=== PATIENT | female | born 1960 | race Caucasian/White ===

== ENCOUNTER 2021-07-18 01:23 | Inpatient (IN) | payer MEDICAID ==
[~2021-07-18] VITALS: Ht 157.5 cm; Wt 109.1 kg
[2021-07-18 03:06] LABS: APTT 23 SECONDS (22-32)
[2021-07-18 03:11] LABS: BASOPHILS % (AUTO) 0.4 % (0-1); EOSINOPHILS # (AUTO) 0.2 X10'3 (0-0.9); HEMATOCRIT 38.5 % (35.0-45.0); LYMPHOCYTES % (AUTO) 17.6 % (21-51); MEAN CORPUSCULAR HEMOGLOBIN 30.6 PG (27.0-31.0); MEAN CORPUSCULAR HGB CONC 33.8 g/dL (33.0-36.5); MEAN CORPUSCULAR VOLUME 90.5 FL (78-98); MEAN PLATELET VOLUME 7.9 FL (7.4-10.4); MONOCYTES # (AUTO) 0.4 X10'3 (0-0.9); MONOCYTES % (AUTO) 3.7 % (2-12); NEUTROPHILS # (AUTO) 8.5 X10'3 (1.8-7.7); NEUTROPHILS % (AUTO) 76.3 % (42-75); PLATELET COUNT 236 X10'3 (140-440); RED BLOOD COUNT 4.25 X10'6 (4.20-5.60); RED CELL DISTRIBUTION WIDTH 16.1 % (11.5-14.5); WHITE BLOOD COUNT 11.1 X10'3 (4.5-11.0)
[2021-07-18 03:18] LABS: ALANINE AMINOTRANSFERASE 33 U/L (12-78); ALBUMIN 3.6 G/DL (3.4-5.0); ALBUMIN/GLOBULIN RATIO 0.8 (1.1-1.5); ALKALINE PHOSPHATASE 174 IU/L (46-116); ANION GAP 11 (8-16); ASPARTATE AMINO TRANSFERASE 41 U/L (10-37); BILIRUBIN,TOTAL 0.4 MG/DL (0.1-1.0); BLOOD UREA NITROGEN 28 MG/DL (7-18); BUN/CREATININE RATIO 15.5 (6.6-38.0); CALCIUM 9.5 MG/DL (8.5-10.1); CHLORIDE 103 MMOL/L (99-107); CREATININE 1.81 MG/DL (0.40-0.90); GLUCOSE 258 MG/DL (70-104); POTASSIUM 4.2 MMOL/L (3.5-5.1); SODIUM 141 MMOL/L (135-145); TOTAL CARBON DIOXIDE 27.3 MMOL/L (24-32); TOTAL PROTEIN 8.3 G/DL (6.4-8.2); eGFR 28 ML/MIN
[2021-07-18 04:24] LABS: CLARITY,URINE CLEAR (Clear); COLOR,URINE YELLOW (Yellow); GLUCOSE, URINE NEGATIVE (Neg); KETONES,URINE NEGATIVE (Neg); LEUKOCYTE ESTERASE ,URINE NEGATIVE (Neg); NITRITES, URINE NEGATIVE (Neg); OCCULT BLOOD,URINE SMALL (Neg); PROTEIN,URINE 100 mg/dl (Neg); UA COLLECTION TYPE CLN CATCH MIDSTREAM; UROBILINOGEN,URINE 0.2 E.U/dL (0.2-1.0)
[2021-07-18 04:31] LABS: SQUAMOUS EPITHELIAL CELL,UR FEW /LPF (FEW); URINE AMPHETAMINE SCREEN NEGATIVE (Neg); URINE BARBITUATE SCREEN NEGATIVE (Neg); URINE BENZODIAZEPINES SCREEN NEGATIVE (Neg); URINE CANNABINOID SCREEN POSITIVE (Neg); URINE COCAINE SCREEN NEGATIVE (Neg); URINE METHADONE SCREEN NEGATIVE (Neg); URINE OPIATE SCREEN NEGATIVE (Neg); URINE PHENCYCLIDINE SCREEN NEGATIVE (Neg)
[2021-07-18 04:32] LABS: HYALINE CASTS 0-3 /LPF (NEGATIVE)
[2021-07-18 04:33] LABS: BACTERIA,URINE NONE SEEN /HPF (Neg); MUCUS STRANDS NONE SEEN /LPF (Neg); RBC,URINE 0-2 /HPF (0-2)
[2021-07-18] MEDS ORDERED: normal saline 1000ml 1,000 ML IV ONE (04:50)
[2021-07-18] MEDS ORDERED: LOSA25TA41 PO (05:02)
--- NOTE | 2021-07-18 05:52 | NUR ---
FLUIDS FINISHED. SECOND LACTIC DRAWN NOW
[2021-07-18] MEDS ORDERED: insulin Lispro (HumaLOG) vial - multi-dose SQ SCH (07:25)
[2021-07-18] MEDS ORDERED: glucagon, human recombinant 1mg kit SUBCUT PRN (07:25)
[2021-07-18] MEDS ORDERED: albuterol 2.5 MG/3 ML nebule NEB PRN ×2 (07:25)
[2021-07-18] MEDS ORDERED: potassium CL 10mEq/100ml bag 100 ML IV PRN (07:25)
[2021-07-18] MEDS ORDERED: ipratropium/albuterol 3ml nebule NEB PRN (07:25)
[2021-07-18] MEDS ORDERED: dextrose 50%-water 50ml dispensing syringe IV PRN ×2 (07:25)
[2021-07-18] MEDS ORDERED: magnesium 4gm in 100ml NS 100 ML IV PRN (07:25)
[2021-07-18] MEDS ORDERED: POTASSIUM BICARB 20meq eff tab 20 MEQ TABLET.EFF PO PRN ×2 (07:25)
[2021-07-18] MEDS ORDERED: MESSAGE TO PHARMACY PO ONE (07:25)
[2021-07-18] MEDS ORDERED: magnesium 2GM in 50ml NS 50 ML IV PRN (07:25)
[2021-07-18] MEDS ORDERED: acetaminophen 325mg tablet PO PRN (07:25)
[2021-07-18] MEDS ORDERED: DEXTROSE 15 GM of carb/4 tabs (each vial/BOTTLE has 4 tablets) PO PRN ×2 (07:25)
[2021-07-18] MEDS: normal saline 1000ml 1,000 ML IV SCH ×3 (07:25→19:30)
[2021-07-18] MEDS ORDERED: ondansetron/PF 4mg/2ml inj IV PRN (07:25)
[2021-07-18] MEDS ORDERED: mag hydrox/Alum hydrox/simeth 30ml oral suspension PO PRN (07:25)
--- NOTE | 2021-07-18 07:30 | NUR ---
Pt sleeping, no apparent needs at this time.
[2021-07-18 07:51] LABS: ABG BASE EXCESS 2.2 mmol/L (-2.0-2.0); ABG OXYGEN SATURATION 95.2 % (94-97); ABG PCO2 (T) 60.8 mmHg (32.0-45.0); ABG PO2 (T) 77.9 mmHg (75.0-100.0); ALLEN'S TEST POSITIVE; FCOHb 2.7 % (0.0-3.9); FLOW 3 L/min; FMetHb 0.3 % (0.0-1.5); FO2Hb 92.3 % (94-97); PATIENT TEMPERATURE 36.7
[2021-07-18] MEDS: budesonide 0.5mg/2ml UD nebule IH SCH ×2 (08:00→19:50)
[2021-07-18] MEDS: K and/or MAG REPLACEMENT MC SCH ×2 (08:00→20:00)
[2021-07-18] MEDS: docusate sod 100mg capsule PO SCH ×3 (08:00→21:58)
[2021-07-18] MEDS: heparin, porcine 5000 units/ml vial SQ SCH ×2 (08:34→21:59)
[2021-07-18] MEDS: methylPREDNISolone sod succ 125mg/2ml vial IV SCH ×3 (08:36→23:53)
--- NOTE | 2021-07-18 08:37 | NUR ---
Pt placed on BiPAP 10/5 on 21% FiO2. Pt awakens to verbal, confused, but able to follow commands to look me in the eye. Tolerating BiPAP well, explained need to have pt placed on it to help her breathe. Pt nodded when asked if she understood.
[2021-07-18 08:43] LABS: HEMOGLOBIN A1C 6.8 % (4.5-6.2)
--- NOTE | 2021-07-18 09:01 | NUR ---
Left hand IV (field stick) d/c, cath intact, WNL. New IV started LFA 20g, NS @100 infusing.
--- NOTE | 2021-07-18 09:30 | NUR ---
Pt's at bedside. Pt starting to wake up and become more alert.
[2021-07-18 10:34] LABS: ABG BASE EXCESS 1.3 mmol/L (-2.0-2.0); ABG HCO3 28.2 mmol/L (22.0-26.0); ABG PCO2 (T) 54.6 mmHg (32.0-45.0); ABG PO2 (T) 65.2 mmHg (75.0-100.0); ALLEN'S TEST POSITIVE; FCOHb 2.7 % (0.0-3.9); FMetHb 0.3 % (0.0-1.5); FO2Hb 90.2 % (94-97); TOTAL HEMOGLOBIN 13.4 G/dl (12.0-16.0)
--- NOTE | 2021-07-18 10:45 | NUR ---
Pt states she is feeling much better. "I'm ready to go home." Pt still on BiPAP. A&Ox3. Will page RT for breathing tx.
[2021-07-18] MEDS: ipratropium/albuterol 3ml nebule NEB SCH ×4 (11:36→22:44)
--- NOTE | 2021-07-18 12:00 | NUR ---
Pt alert and oriented, talking with family at bedside. Still on BiPAP.
--- NOTE | 2021-07-18 13:30 | NUR ---
at bedside. Pt in no apparent distress. No needs at this time. Tolerating BiPAP well.
[2021-07-18] MEDS ORDERED: BACL20TA PO (14:33)
[2021-07-18] MEDS ORDERED: METF-438 PO (14:33)
[2021-07-18] MEDS ORDERED: GLIM4TAB7 PO (14:33)
[2021-07-18] MEDS ORDERED: BUPR-72 PO (14:33)
[2021-07-18] MEDS ORDERED: ALBU17AE26 PO (14:33)
[2021-07-18] MEDS ORDERED: FLUT1BLS16 INH (14:33)
[2021-07-18] MEDS ORDERED: MUPI22OI30 TOP (14:33)
[2021-07-18] MEDS ORDERED: [UNRECOGNIZED DRUG - CODE] PO (14:33)
[2021-07-18] MEDS ORDERED: FURO40TA4 PO (14:33)
[2021-07-18] MEDS ORDERED: METO25TA6 PO (14:33)
[2021-07-18] MEDS ORDERED: ATOR20TA66 PO (14:33)
[2021-07-18] MEDS ORDERED: non-formulary drug (Baclofen 1 TAB) PO PRN (14:40)
--- NOTE | 2021-07-18 15:05 | NUR ---
Respiratory paged for breathing tx.
--- NOTE | 2021-07-18 16:29 | NUR ---
Pt voided on bedpan, sheets and gown and blanket changed. Pt moved up in bed. Pt alert, good sense of humor. No further needs, at bedside.
--- NOTE | 2021-07-18 19:06 | NUR ---
report given to bret ramos
--- NOTE | 2021-07-18 19:07 | NUR ---
Patient in room ORTHO 4009. I have received report from BRIAN ALVAREZ and had the opportunity to ask questions and assume patient care. Addendum: 07/19/21 at 0424 by Dulce De La Cruz RN WRONG ENTRY
[2021-07-18 19:20] VITALS: BP 159/79
--- NOTE | 2021-07-18 19:20 | NUR ---
PATIENT ADMITTED TO ROOM 4009A FROM ER FOR ENCEPHALOPATHY MOST LIKELY METABOLIC/SEPSIS. PLACED COMFORTABLE IN BED. VITAL SIGNS TAKEN AND RECORDED.
[2021-07-18] MEDS ORDERED: metoprolol tartrate 25mg tablet PO SCH ×2 (20:00→21:49)
[2021-07-18] MEDS: atorvastatin 20mg tablet PO SCH ×2 (21:00→21:43)
[2021-07-18] MEDS ORDERED: insulin glargine (Lantus) pen - multi-dose SQ SCH (21:00)
[2021-07-18] MEDS: mupirocin 2% ointment 22GM NS SCH (21:00)
[2021-07-18] MEDS: buPROPion SR 150mg tablet PO SCH ×2 (21:43→21:58)
[2021-07-18] MEDS ORDERED: baclofen 10mg tablet PO PRN (21:50)
[2021-07-18] MEDS ORDERED: metoprolol tartrate 25mg tablet PO ONE (21:55)
[2021-07-18 22:00] VITALS: BP 175/92
--- NOTE | 2021-07-18 22:00 | NUR ---
PATIENT REFUSED TO TAKE ALL HER MEDS VERBALIZING ABOUT WANTING TO GO HOME. PATIENT ALSO REFUSED FOR A FINGER STICK TO CHECK HER BLOOD SUGAR. CALLED DR. VIGIL AND WAS INFORMED OF PATIENT'S BEHAVIOR AND REFUSAL OF MEDS AND BLOOD SUGAR CHECK WITH ORDER TO GIVE ATIVAN 1MG. IV ONE TIME DOSE.
[2021-07-18] MEDS ORDERED: LORazepam 2 mg/ml vial IV ONE (22:10)
[2021-07-18 23:30] VITALS: BP 158/86
[2021-07-19] MEDS: ipratropium/albuterol 3ml nebule NEB SCH ×3 (02:47→10:41)
[2021-07-19 06:00] VITALS: BP 146/80
--- NOTE | 2021-07-19 06:04 | NUR ---
Problems reprioritized. Patient report given, questions answered & plan of care reviewed with JOHN ALVAREZ.
--- NOTE | 2021-07-19 06:05 | NUR ---
received report from richard ramos rn
[2021-07-19 06:39] LABS: BASOPHILS % (AUTO) 0 % (0-1); EOSINOPHILS % (AUTO) 0.1 % (0-6); HEMOGLOBIN 11.8 g/dl (12.0-16.0); LYMPHOCYTES # (AUTO) 0.6 X10'3 (1.1-4.8); LYMPHOCYTES % (AUTO) 12.4 % (21-51); MEAN CORPUSCULAR HEMOGLOBIN 30.9 PG (27.0-31.0); MEAN CORPUSCULAR HGB CONC 33.7 g/dL (33.0-36.5); MEAN CORPUSCULAR VOLUME 91.7 FL (78-98); MEAN PLATELET VOLUME 7.6 FL (7.4-10.4); MONOCYTES % (AUTO) 0.8 % (2-12); NEUTROPHILS # (AUTO) 4.3 X10'3 (1.8-7.7); NEUTROPHILS % (AUTO) 86.7 % (42-75); PLATELET COUNT 190 X10'3 (140-440); RED BLOOD COUNT 3.82 X10'6 (4.20-5.60); RED CELL DISTRIBUTION WIDTH 16.8 % (11.5-14.5)
[2021-07-19] MEDS: budesonide 0.5mg/2ml UD nebule IH SCH (06:51)
[2021-07-19 06:55] LABS: ALANINE AMINOTRANSFERASE 30 U/L (12-78); ALBUMIN 3.4 G/DL (3.4-5.0); ALBUMIN/GLOBULIN RATIO 0.8 (1.1-1.5); ALKALINE PHOSPHATASE 148 IU/L (46-116); ANION GAP 7 (8-16); ASPARTATE AMINO TRANSFERASE 24 U/L (10-37); BILIRUBIN,TOTAL 0.3 MG/DL (0.1-1.0); BLOOD UREA NITROGEN 29 MG/DL (7-18); BUN/CREATININE RATIO 17.4 (6.6-38.0); CALCIUM 8.9 MG/DL (8.5-10.1); CHLORIDE 106 MMOL/L (99-107); CREATININE 1.67 MG/DL (0.40-0.90); GLUCOSE 314 MG/DL (70-104); MAGNESIUM 2.1 MG/DL (1.5-2.4); POTASSIUM 5.4 MMOL/L (3.5-5.1); SODIUM 140 MMOL/L (135-145); TOTAL CARBON DIOXIDE 26.8 MMOL/L (24-32); TOTAL PROTEIN 7.8 G/DL (6.4-8.2); eGFR 31 ML/MIN
[2021-07-19] MEDS ORDERED: SODIUM ZIRCONIUM CYCLOSILICATE 10 GM POWD.PACK PO ONE (07:30)
[2021-07-19] MEDS: heparin, porcine 5000 units/ml vial SQ SCH (08:00)
[2021-07-19] MEDS ORDERED: losartan 25mg tablet PO SCH (08:00)
[2021-07-19] MEDS: K and/or MAG REPLACEMENT MC SCH (08:00)
[2021-07-19] MEDS ORDERED: levoTHYROXINE 100mcg tablet PO SCH (08:00)
[2021-07-19] MEDS ORDERED: furosemide 40mg tablet PO SCH (08:00)
[2021-07-19] MEDS: mupirocin 2% ointment 22GM NS SCH ×2 (08:00→12:53)
[2021-07-19] MEDS: docusate sod 100mg capsule PO SCH ×2 (08:00→08:55)
[2021-07-19] MEDS: methylPREDNISolone sod succ 125mg/2ml vial IV SCH (08:00)
--- NOTE | 2021-07-19 08:00 | NUR ---
PT BG IS IN THE 300s AND SHE IS REFUSING TO TAKE INSULIN AT THIS TIME, CONTINUE TO EDUCATE AND TO MONITOR
[2021-07-19] MEDS: buPROPion SR 150mg tablet PO SCH (09:00)
[2021-07-19 10:00] VITALS: BP 177/65
[2021-07-19 10:56] LABS: ALBUMIN 3.5 G/DL (3.4-5.0); ANION GAP 11 (8-16); BLOOD UREA NITROGEN 28 MG/DL (7-18); BUN/CREATININE RATIO 15.6 (6.6-38.0); CALCIUM 9.2 MG/DL (8.5-10.1); CHLORIDE 104 MMOL/L (99-107); CREATININE 1.79 MG/DL (0.40-0.90); GLUCOSE 325 MG/DL (70-104); POTASSIUM 5.2 MMOL/L (3.5-5.1); SODIUM 140 MMOL/L (135-145); TOTAL CARBON DIOXIDE 25.3 MMOL/L (24-32); eGFR 29 ML/MIN
[2021-07-19] MEDS ORDERED: PRED20TA PO (12:27)
--- NOTE | 2021-07-19 13:38 | NUR ---
PT d/c'd with instructions, understanding of instructions and with all belongings in WC. Accompanied by and nusring staff to private vehicle to go home and f/u with PCP.
== END 2021-07-19 13:35 | disposition home or self-care (01) | DRG 720 ==
LOC: ER 01:24 → ED HOLD 07:32 → ORTHO 4S 19:16
PROVIDERS: ADMIT Family Medicine; ATTEND Family Medicine
PROC: 5A09357 Assistance with Respiratory Ventilation, Less than 24 Consecutive Hours, Continuous Positive Airway Pressure (ICD-10-PCS; principal; 2021-07-18)
DX: A41.9 Sepsis, unspecified organism (principal); G93.41 Metabolic encephalopathy; E87.2 Acidosis; J96.10 Chronic respiratory failure, unspecified whether with hypoxia or hypercapnia; J44.0 Chronic obstructive pulmonary disease with (acute) lower respiratory infection; E11.22 Type 2 diabetes mellitus with diabetic chronic kidney disease; D72.823 Leukemoid reaction; N17.9 Acute kidney failure, unspecified; E03.9 Hypothyroidism, unspecified; E87.5 Hyperkalemia; J20.9 Acute bronchitis, unspecified; N18.9 Chronic kidney disease, unspecified; I12.9 Hypertensive chronic kidney disease with stage 1 through stage 4 chronic kidney disease, or unspecified chronic kidney disease; E66.01 Morbid (severe) obesity due to excess calories; N39.0 Urinary tract infection, site not specified; R32 Unspecified urinary incontinence; Z79.84 Long term (current) use of oral hypoglycemic drugs; Z79.899 Other long term (current) drug therapy; Z99.81 Dependence on supplemental oxygen; Z72.0 Tobacco use; Z68.41 Body mass index [BMI] 40.0-44.9, adult
CPT/HCPCS: 36415; 36600; 70450; 71045; 72125; 80048; 80053; 80305; 81001; 82140; 82803; 82948; 83036; 83605; 83735; 84484; 85018; 85025; 85610; 85730; 87040; 87081; 87088; 92508; 92616; 93005; 94640; 94660; 94760; 96361; 97116; 97530; 99285; G0378; J1644; J1815; J2060; J2930; J7030

== ENCOUNTER 2022-02-22 13:03 | Inpatient (IN) | payer MEDICAID ==
[~2022-02-22] VITALS: Ht 157.5 cm; Wt 106.3 kg
[~2022-02-22 13:03] MED LIST: ALBU17AE26 PO; ATOR20TA66 PO; BACL20TA PO; BUPR-72 PO; FLUT1BLS16 INH; FURO40TA4 PO; GLIM4TAB7 PO; METO25TA6 PO; MUPI22OI30 TOP; PRED20TA PO; [UNRECOGNIZED DRUG - CODE] PO
[2022-02-22 14:07] LABS: BASOPHILS % (AUTO) 0.4 % (0-1); EOSINOPHILS # (AUTO) 0.1 X10'3 (0-0.9); EOSINOPHILS % (AUTO) 1.1 % (0-6); HEMATOCRIT 27.6 % (35.0-45.0); HEMOGLOBIN 9.1 g/dl (12.0-16.0); LYMPHOCYTES # (AUTO) 1.4 X10'3 (1.1-4.8); MEAN CORPUSCULAR HEMOGLOBIN 29.6 PG (27.0-31.0); MEAN CORPUSCULAR HGB CONC 32.9 g/dL (33.0-36.5); MEAN CORPUSCULAR VOLUME 89.9 FL (78-98); MEAN PLATELET VOLUME 6.8 FL (7.4-10.4); MONOCYTES # (AUTO) 0.4 X10'3 (0-0.9); MONOCYTES % (AUTO) 4.9 % (2-12); NEUTROPHILS # (AUTO) 6.9 X10'3 (1.8-7.7); NEUTROPHILS % (AUTO) 77.6 % (42-75); PLATELET COUNT 244 X10'3 (140-440); RED BLOOD COUNT 3.06 X10'6 (4.20-5.60); RED CELL DISTRIBUTION WIDTH 18.2 % (11.5-14.5)
[2022-02-22 14:23] LABS: ALANINE AMINOTRANSFERASE 30 U/L (12-78); ALBUMIN 3.1 G/DL (3.4-5.0); ALBUMIN/GLOBULIN RATIO 0.7 (1.1-1.5); ALKALINE PHOSPHATASE 176 IU/L (46-116); ANION GAP 9 (8-16); ASPARTATE AMINO TRANSFERASE 28 U/L (10-37); BILIRUBIN,TOTAL 0.3 MG/DL (0.1-1.0); BLOOD UREA NITROGEN 22 MG/DL (7-18); BUN/CREATININE RATIO 13.4 (6.6-38.0); CALCIUM 8.5 MG/DL (8.5-10.1); CHLORIDE 91 MMOL/L (99-107); CREATININE 1.64 MG/DL (0.40-0.90); GLUCOSE 156 MG/DL (70-104); POTASSIUM 3.8 MMOL/L (3.5-5.1); SODIUM 134 MMOL/L (135-145); TOTAL CARBON DIOXIDE 34.3 MMOL/L (24-32); TOTAL PROTEIN 7.5 G/DL (6.4-8.2); eGFR 32 ML/MIN
[2022-02-22] MEDS ORDERED: nitroGLYCERIN 0.4mg/hour patch TD ONE (19:45)
[2022-02-22] MEDS ORDERED: furosemide 10 MG/1 ML 10ml inj IV ONE (19:45)
[2022-02-22] MEDS ORDERED: furosemide 40mg/4ml inj IV ONE (19:50)
[2022-02-22] MEDS ORDERED: LORazepam 1 MG tablet PO ONE (20:20)
[2022-02-22] MEDS ORDERED: nicotine 14mg patch - 24hr TD ONE (20:20)
[2022-02-23 00:40] LABS: CLARITY,URINE CLEAR (Clear); COLOR,URINE YELLOW (Yellow); GLUCOSE, URINE NEGATIVE (Neg); KETONES,URINE NEGATIVE (Neg); LEUKOCYTE ESTERASE ,URINE NEGATIVE (Neg); NITRITES, URINE NEGATIVE (Neg); OCCULT BLOOD,URINE TRACE-INTACT (Neg); PROTEIN,URINE 30 mg/dl (Neg); UROBILINOGEN,URINE 0.2 E.U/dL (0.2-1.0)
[2022-02-23 00:43] LABS: UA COLLECTION TYPE VOIDED
[2022-02-23 00:47] LABS: BACTERIA,URINE FEW /HPF (Neg); SQUAMOUS EPITHELIAL CELL,UR FEW /LPF (FEW); WBC,URINE 0-4 /HPF (0-4)
[2022-02-23 00:48] LABS: FINE GRANULAR CAST 0-3 /LPF (NEGATIVE); MUCUS STRANDS FEW /LPF (Neg)
[2022-02-23] MEDS ORDERED: potassium Cl 20 mEq SR tablet PO PRN ×2 (01:15)
[2022-02-23] MEDS ORDERED: magnesium Cl slow-release 64mg tablet PO PRN (01:15)
[2022-02-23] MEDS ORDERED: PERFLUTREN PROTEIN-A MICROSPHR (Optison) 0.22 MG/ML 3ML VIAL IV PRN (01:15)
[2022-02-23] MEDS ORDERED: magnesium hydroxide 30ml (MOM) UD suspension PO PRN (01:15)
[2022-02-23] MEDS ORDERED: mag hydrox/Alum hydrox/simeth 30ml oral suspension PO PRN (01:15)
[2022-02-23] MEDS ORDERED: potassium Cl 40MEQ/1/2NS 520ml 520 ML IV PRN (01:15)
[2022-02-23] MEDS ORDERED: magnesium 4gm in 100ml NS 100 ML IV PRN (01:15)
[2022-02-23] MEDS ORDERED: ondansetron/PF 4mg/2ml inj IV PRN (01:15)
--- NOTE | 2022-02-23 01:32 | NUR ---
PT O2 SATURATION 80% ON 2L O2. PT PLACED ON 5L O2 AND O2 SATURATION UP TO 87%. RT AT BEDSIDE. WILL NOTIFY DUY SANTORO.
[2022-02-23 01:52] LABS: ABG BASE EXCESS 12.7 mmol/L (-2.0-2.0); ABG HCO3 41.7 mmol/L (22.0-26.0); ABG OXYGEN SATURATION 87.1 % (94-97); ABG PCO2 (T) 86.4 mmHg (32.0-45.0); ABG PO2 (T) 57.7 mmHg (75.0-100.0); FCOHb 5.1 % (0.0-3.9); FLOW 3 L/min; FMetHb 0.3 % (0.0-1.5); FO2Hb 82.4 % (94-97); PATIENT TEMPERATURE 36.8; TOTAL HEMOGLOBIN 9.8 G/dl (12.0-16.0)
--- NOTE | 2022-02-23 02:21 | NUR ---
spoke with dr mojica in regards to pt o2 status. pt was placed on a bi pap per his orders. will continue to assess the pt.
[2022-02-23 06:05] LABS: ABG BASE EXCESS 7.9 mmol/L (-2.0-2.0); ABG HCO3 36.4 mmol/L (22.0-26.0); ABG OXYGEN SATURATION 92.3 % (94-97); ABG PCO2 (T) 76.9 mmHg (32.0-45.0); ALLEN'S TEST POSITIVE; FCOHb 4.6 % (0.0-3.9); FMetHb 0.2 % (0.0-1.5); FO2Hb 87.9 % (94-97); PATIENT TEMPERATURE 36.8; RESPIRATORY RATE 20 b/min; TOTAL HEMOGLOBIN 9.8 G/dl (12.0-16.0)
[2022-02-23] MEDS: K and/or MAG REPLACEMENT MC SCH ×2 (08:00→18:26)
[2022-02-23] MEDS: docusate sod 100mg capsule PO SCH ×2 (08:00→19:13)
[2022-02-23 08:01] LABS: MAGNESIUM 2.2 MG/DL (1.5-2.4); POTASSIUM 4.3 MMOL/L (3.5-5.1)
--- NOTE | 2022-02-23 09:30 | NUR ---
PEPE. PT MIXON IN ROOM 3023S TRYING TO PULL BIPAP OFF. PLEASE EVALUATE FOR POSSIBLE NC. THANKS
--- NOTE | 2022-02-23 09:30 | NUR ---
RT paged to remove pt from bipap and trial NC as pt keeps attempting to pull bipap mask off. Pt's mask off and on NC upon RT arrival. Bipap now on standby, pt to attempt bed side commode then wants to eat breakfast. Spoke to RN and asked her to page again if RT needed. Will cont to monitor
[2022-02-23 10:00] VITALS: BP 115/56
[2022-02-23] MEDS: heparin, porcine 5000 units/ml vial SQ SCH ×2 (10:50→19:14)
--- NOTE | 2022-02-23 13:34 | NUR ---
JANNETH FOR 3023B, PT MIXON PLEASE. THANKS
[2022-02-23 14:01] LABS: ABG BASE EXCESS 12.2 mmol/L (-2.0-2.0); ABG HCO3 41.5 mmol/L (22.0-26.0); ABG OXYGEN SATURATION 94.9 % (94-97); ABG PCO2 (T) 91.2 mmHg (32.0-45.0); ABG PO2 (T) 82.8 mmHg (75.0-100.0); ALLEN'S TEST POSITIVE; FCOHb 2.5 % (0.0-3.9); FLOW 8 L/min; FMetHb 0.2 % (0.0-1.5); FO2Hb 92.3 % (94-97); PATIENT TEMPERATURE 36.8; TOTAL HEMOGLOBIN 9.3 G/dl (12.0-16.0)
[2022-02-23] MEDS: methylPREDNISolone sod succ 125mg/2ml vial IV SCH ×2 (14:38→19:13)
--- NOTE | 2022-02-23 15:00 | NUR ---
O2 SAT FOR 3023B 85%. PLEASE EVALUATE. THANKS
[2022-02-23] MEDS: ipratropium/albuterol 3ml nebule NEB SCH ×3 (15:14→23:08)
[2022-02-23 18:00] VITALS: BP 154/54
[2022-02-23] MEDS: furosemide 40mg/4ml inj IV SCH (19:13)
[2022-02-23] MEDS ORDERED: DEXTROSE 15 GM of carb/4 tabs (each vial/BOTTLE has 4 tablets) PO PRN ×2 (21:20)
[2022-02-23] MEDS ORDERED: dextrose 50%-water 50ml dispensing syringe IV PRN ×2 (21:20)
[2022-02-23] MEDS ORDERED: glucagon, human recombinant 1mg kit SUBCUT PRN (21:20)
[2022-02-23] MEDS: insulin Lispro (HumaLOG) vial - multi-dose SQ SCH (21:41)
[2022-02-23] MEDS: insulin glargine (Lantus) pen - multi-dose SQ SCH (21:44)
[2022-02-23 22:00] VITALS: BP 138/114
[2022-02-24 02:00] VITALS: BP 146/65
[2022-02-24] MEDS: methylPREDNISolone sod succ 125mg/2ml vial IV SCH ×4 (02:03→19:11)
[2022-02-24] MEDS: ipratropium/albuterol 3ml nebule NEB SCH ×6 (03:13→23:18)
--- NOTE | 2022-02-24 06:27 | NUR ---
Problems reprioritized. Patient report given, questions answered & plan of care reviewed with KIM Raza.
[2022-02-24 07:00] VITALS: BP 164/65
[2022-02-24 07:43] LABS: ALANINE AMINOTRANSFERASE 23 U/L (12-78); ALBUMIN 3.3 G/DL (3.4-5.0); ALBUMIN/GLOBULIN RATIO 0.7 (1.1-1.5); ALKALINE PHOSPHATASE 174 IU/L (46-116); ANION GAP 8 (8-16); ASPARTATE AMINO TRANSFERASE 35 U/L (10-37); BILIRUBIN,TOTAL 0.4 MG/DL (0.1-1.0); BLOOD UREA NITROGEN 32 MG/DL (7-18); BUN/CREATININE RATIO 16.2 (6.6-38.0); CHLORIDE 91 MMOL/L (99-107); CREATININE 1.98 MG/DL (0.40-0.90); GLUCOSE 259 MG/DL (70-104); MAGNESIUM 2.7 MG/DL (1.5-2.4); POTASSIUM 5.2 MMOL/L (3.5-5.1); SODIUM 128 MMOL/L (135-145); TOTAL PROTEIN 7.9 G/DL (6.4-8.2); eGFR 26 ML/MIN
[2022-02-24 08:00] LABS: CALCIUM 8.8 MG/DL (8.5-10.1)
[2022-02-24] MEDS: K and/or MAG REPLACEMENT MC SCH ×2 (08:00→19:03)
[2022-02-24] MEDS: docusate sod 100mg capsule PO SCH ×2 (08:00→19:04)
[2022-02-24] MEDS: furosemide 40mg/4ml inj IV SCH ×2 (08:00→19:11)
[2022-02-24] MEDS: heparin, porcine 5000 units/ml vial SQ SCH ×2 (08:00→19:12)
[2022-02-24 08:03] LABS: BASOPHILS % (AUTO) 0.1 % (0-1); EOSINOPHILS % (AUTO) 0 % (0-6); HEMATOCRIT 27.1 % (35.0-45.0); HEMOGLOBIN 8.8 g/dl (12.0-16.0); LYMPHOCYTES # (AUTO) 0.3 X10'3 (1.1-4.8); LYMPHOCYTES % (AUTO) 5.4 % (21-51); MEAN CORPUSCULAR HEMOGLOBIN 29.5 PG (27.0-31.0); MEAN CORPUSCULAR HGB CONC 32.4 g/dL (33.0-36.5); MEAN CORPUSCULAR VOLUME 90.9 FL (78-98); MEAN PLATELET VOLUME 6.7 FL (7.4-10.4); MONOCYTES # (AUTO) 0.1 X10'3 (0-0.9); MONOCYTES % (AUTO) 1.1 % (2-12); NEUTROPHILS % (AUTO) 93.4 % (42-75); PLATELET COUNT 200 X10'3 (140-440); RED BLOOD COUNT 2.98 X10'6 (4.20-5.60); RED CELL DISTRIBUTION WIDTH 18.1 % (11.5-14.5); WHITE BLOOD COUNT 5.4 X10'3 (4.5-11.0)
--- NOTE | 2022-02-24 09:08 | NUR ---
DR. TAMAYO, SIMÓN [facility], ROOM 3023B HAVE AN ORDER FOR LEVOTHYROXINE 200 MCG AND NICOTINE PATCH PLEASE. THANK YOU LUCERO BELLA
[2022-02-24] MEDS: insulin Lispro (HumaLOG) vial - multi-dose SQ SCH ×3 (09:44→19:20)
[2022-02-24] MEDS: acetaminophen 325mg tablet PO PRN (09:51)
[2022-02-24] MEDS: nicotine 14mg patch - 24hr TD SCH (11:11)
[2022-02-24] MEDS: LORazepam 0.5 MG tablet PO PRN ×2 (11:12→19:21)
[2022-02-24] MEDS ORDERED: ATOR10TA70 PO (11:59)
[2022-02-24] MEDS ORDERED: FERR325T29 PO (11:59)
[2022-02-24] MEDS ORDERED: METF-1203 PO (11:59)
[2022-02-24] MEDS ORDERED: SPIR25TA5 PO (11:59)
[2022-02-24] MEDS ORDERED: DOCU-342 PO (11:59)
[2022-02-24 13:00] VITALS: BP 150/65
[2022-02-24] MEDS ORDERED: furosemide 40mg/4ml inj IV ONE (13:45)
[2022-02-24] MEDS ORDERED: docusate sod 100mg capsule PO PRN (17:40)
[2022-02-24 18:00] VITALS: BP 155/77
[2022-02-24] MEDS: metoprolol tartrate 25mg tablet PO SCH (19:12)
[2022-02-24] MEDS: atorvastatin 10mg tablet PO SCH (20:06)
[2022-02-24] MEDS: insulin glargine (Lantus) pen - multi-dose SQ SCH (20:53)
[2022-02-24 22:33] VITALS: BP 131/52
[2022-02-25] MEDS: methylPREDNISolone sod succ 125mg/2ml vial IV SCH ×4 (01:44→19:36)
[2022-02-25 01:48] VITALS: BP 139/64
[2022-02-25] MEDS: LORazepam 0.5 MG tablet PO PRN ×2 (03:19→19:47)
[2022-02-25] MEDS: ipratropium/albuterol 3ml nebule NEB SCH ×5 (03:30→19:41)
[2022-02-25 07:00] VITALS: BP 178/67
[2022-02-25] MEDS: levoTHYROXINE 100mcg tablet PO SCH (07:00)
[2022-02-25 07:05] LABS: BASOPHILS % (AUTO) 0 % (0-1); EOSINOPHILS % (AUTO) 0 % (0-6); HEMATOCRIT 28.1 % (35.0-45.0); HEMOGLOBIN 8.9 g/dl (12.0-16.0); LYMPHOCYTES # (AUTO) 0.4 X10'3 (1.1-4.8); LYMPHOCYTES % (AUTO) 4.3 % (21-51); MEAN CORPUSCULAR HGB CONC 31.6 g/dL (33.0-36.5); MEAN CORPUSCULAR VOLUME 91.8 FL (78-98); MEAN PLATELET VOLUME 6.8 FL (7.4-10.4); MONOCYTES # (AUTO) 0.2 X10'3 (0-0.9); MONOCYTES % (AUTO) 1.8 % (2-12); NEUTROPHILS # (AUTO) 7.7 X10'3 (1.8-7.7); NEUTROPHILS % (AUTO) 93.9 % (42-75); PLATELET COUNT 225 X10'3 (140-440); RED BLOOD COUNT 3.06 X10'6 (4.20-5.60); RED CELL DISTRIBUTION WIDTH 18.3 % (11.5-14.5); WHITE BLOOD COUNT 8.2 X10'3 (4.5-11.0)
[2022-02-25 07:30] LABS: ALANINE AMINOTRANSFERASE 29 U/L (12-78); ALBUMIN 3.3 G/DL (3.4-5.0); ALBUMIN/GLOBULIN RATIO 0.8 (1.1-1.5); ALKALINE PHOSPHATASE 154 IU/L (46-116); ANION GAP 2 (8-16); ASPARTATE AMINO TRANSFERASE 28 U/L (10-37); BILIRUBIN,TOTAL 0.3 MG/DL (0.1-1.0); BLOOD UREA NITROGEN 54 MG/DL (7-18); BUN/CREATININE RATIO 25.6 (6.6-38.0); CALCIUM 8.5 MG/DL (8.5-10.1); CHLORIDE 92 MMOL/L (99-107); CREATININE 2.11 MG/DL (0.40-0.90); GLUCOSE 196 MG/DL (70-104); MAGNESIUM 2.5 MG/DL (1.5-2.4); SODIUM 129 MMOL/L (135-145); TOTAL CARBON DIOXIDE 35.2 MMOL/L (24-32); TOTAL PROTEIN 7.3 G/DL (6.4-8.2); eGFR 24 ML/MIN
[2022-02-25 07:32] LABS: POTASSIUM 6.4 MMOL/L (3.5-5.1)
--- NOTE | 2022-02-25 07:33 | NUR ---
MORNING DR. TAMAYO. CRITICAL K 6.4 FOR PT ORAL, ROOM 3025B. THANKS SHAYNE Darrick
[2022-02-25] MEDS ORDERED: sodium polystyrene sulfonate 15gm/60ml oral suspension PO ONE ×2 (07:40→07:45)
[2022-02-25] MEDS: Fluticasone/Umeclidin/Vilanter (Trelegy Ellipta 200-62.5-25) INHALER IH SCH (07:54)
[2022-02-25] MEDS: K and/or MAG REPLACEMENT MC SCH ×2 (08:00→19:01)
[2022-02-25] MEDS ORDERED: spironolactone 25 MG tablet PO SCH (08:00)
[2022-02-25] MEDS ORDERED: LEVOTHYROXINE SODIUM PO SCH (08:00)
[2022-02-25] MEDS: heparin, porcine 5000 units/ml vial SQ SCH ×2 (08:33→19:37)
[2022-02-25] MEDS: metoprolol tartrate 25mg tablet PO SCH ×2 (08:34→19:36)
[2022-02-25] MEDS: ferrous sulfate 325mg tablet PO SCH (08:34)
[2022-02-25] MEDS: furosemide 40mg/4ml inj IV SCH ×2 (08:34→19:36)
[2022-02-25] MEDS: nicotine 14mg patch - 24hr TD SCH (08:38)
[2022-02-25] MEDS: docusate sod 100mg capsule PO SCH ×2 (08:38→19:01)
[2022-02-25] MEDS: insulin Lispro (HumaLOG) vial - multi-dose SQ SCH ×3 (08:53→18:48)
[2022-02-25 13:00] VITALS: BP 152/71
[2022-02-25 13:29] LABS: MAGNESIUM 2.4 MG/DL (1.5-2.4); POTASSIUM 5.6 MMOL/L (3.5-5.1)
[2022-02-25 19:33] VITALS: BP 124/58
[2022-02-25] MEDS: atorvastatin 10mg tablet PO SCH (20:30)
[2022-02-25] MEDS: insulin glargine (Lantus) pen - multi-dose SQ SCH (20:58)
[2022-02-25 23:25] VITALS: BP 146/74
[2022-02-26] MEDS: ipratropium/albuterol 3ml nebule NEB SCH ×7 (00:31→23:08)
[2022-02-26] MEDS: methylPREDNISolone sod succ 125mg/2ml vial IV SCH ×4 (01:10→19:45)
[2022-02-26 02:34] VITALS: BP 154/72
[2022-02-26 07:00] VITALS: BP 148/75
[2022-02-26 07:46] LABS: BASOPHILS % (AUTO) 0.1 % (0-1); EOSINOPHILS % (AUTO) 0.1 % (0-6); HEMATOCRIT 26.3 % (35.0-45.0); HEMOGLOBIN 8.5 g/dl (12.0-16.0); LYMPHOCYTES # (AUTO) 0.5 X10'3 (1.1-4.8); LYMPHOCYTES % (AUTO) 8.2 % (21-51); MEAN CORPUSCULAR HEMOGLOBIN 29.1 PG (27.0-31.0); MEAN CORPUSCULAR HGB CONC 32.3 g/dL (33.0-36.5); MEAN CORPUSCULAR VOLUME 90.1 FL (78-98); MEAN PLATELET VOLUME 6.9 FL (7.4-10.4); MONOCYTES # (AUTO) 0.2 X10'3 (0-0.9); MONOCYTES % (AUTO) 3.8 % (2-12); NEUTROPHILS # (AUTO) 5.3 X10'3 (1.8-7.7); NEUTROPHILS % (AUTO) 87.8 % (42-75); PLATELET COUNT 194 X10'3 (140-440); RED BLOOD COUNT 2.92 X10'6 (4.20-5.60); RED CELL DISTRIBUTION WIDTH 17.9 % (11.5-14.5)
[2022-02-26] MEDS: ferrous sulfate 325mg tablet PO SCH (07:47)
[2022-02-26] MEDS: levoTHYROXINE 100mcg tablet PO SCH (07:47)
[2022-02-26] MEDS: nicotine 14mg patch - 24hr TD SCH (07:47)
[2022-02-26] MEDS: furosemide 40mg/4ml inj IV SCH ×2 (07:47→19:45)
[2022-02-26] MEDS: docusate sod 100mg capsule PO SCH ×2 (07:47→19:46)
[2022-02-26] MEDS: metoprolol tartrate 25mg tablet PO SCH ×2 (07:47→19:46)
[2022-02-26] MEDS: heparin, porcine 5000 units/ml vial SQ SCH ×2 (07:48→19:44)
[2022-02-26 08:00] LABS: ALANINE AMINOTRANSFERASE 41 U/L (12-78); ALBUMIN 3.3 G/DL (3.4-5.0); ALBUMIN/GLOBULIN RATIO 0.8 (1.1-1.5); ALKALINE PHOSPHATASE 149 IU/L (46-116); ANION GAP 4 (8-16); ASPARTATE AMINO TRANSFERASE 34 U/L (10-37); BILIRUBIN,TOTAL 0.3 MG/DL (0.1-1.0); BLOOD UREA NITROGEN 60 MG/DL (7-18); BUN/CREATININE RATIO 31.9 (6.6-38.0); CALCIUM 8.8 MG/DL (8.5-10.1); CHLORIDE 92 MMOL/L (99-107); CREATININE 1.88 MG/DL (0.40-0.90); GLUCOSE 145 MG/DL (70-104); MAGNESIUM 2.4 MG/DL (1.5-2.4); POTASSIUM 5.4 MMOL/L (3.5-5.1); SODIUM 133 MMOL/L (135-145); TOTAL PROTEIN 7.2 G/DL (6.4-8.2); eGFR 27 ML/MIN
[2022-02-26] MEDS: K and/or MAG REPLACEMENT MC SCH ×2 (08:00→20:00)
[2022-02-26] MEDS: Fluticasone/Umeclidin/Vilanter (Trelegy Ellipta 200-62.5-25) INHALER IH SCH (08:00)
[2022-02-26] MEDS: insulin Lispro (HumaLOG) vial - multi-dose SQ SCH ×2 (08:55→13:54)
[2022-02-26 13:00] VITALS: BP 162/63
[2022-02-26] MEDS: acetaminophen 325mg tablet PO PRN (16:56)
[2022-02-26 18:00] VITALS: BP 173/86
[2022-02-26] MEDS: atorvastatin 10mg tablet PO SCH (20:36)
[2022-02-26] MEDS: insulin glargine (Lantus) pen - multi-dose SQ SCH (21:00)
[2022-02-27 02:00] VITALS: BP 159/69
[2022-02-27] MEDS: methylPREDNISolone sod succ 125mg/2ml vial IV SCH ×3 (02:26→21:05)
[2022-02-27] MEDS: ipratropium/albuterol 3ml nebule NEB SCH ×6 (02:37→23:35)
[2022-02-27 06:00] VITALS: BP 183/74
--- NOTE | 2022-02-27 06:12 | NUR ---
Problems reprioritized. Patient report given, questions answered & plan of care reviewed with Bhumika ALVAREZ.
[2022-02-27 07:49] LABS: BASOPHILS % (AUTO) 0 % (0-1); EOSINOPHILS % (AUTO) 0 % (0-6); HEMATOCRIT 25.6 % (35.0-45.0); HEMOGLOBIN 8.2 g/dl (12.0-16.0); LYMPHOCYTES # (AUTO) 0.3 X10'3 (1.1-4.8); LYMPHOCYTES % (AUTO) 5.7 % (21-51); MEAN CORPUSCULAR HEMOGLOBIN 28.9 PG (27.0-31.0); MEAN CORPUSCULAR VOLUME 90.2 FL (78-98); MEAN PLATELET VOLUME 7.1 FL (7.4-10.4); MONOCYTES # (AUTO) 0.2 X10'3 (0-0.9); MONOCYTES % (AUTO) 4.1 % (2-12); NEUTROPHILS # (AUTO) 4.6 X10'3 (1.8-7.7); NEUTROPHILS % (AUTO) 90.2 % (42-75); PLATELET COUNT 192 X10'3 (140-440); RED BLOOD COUNT 2.84 X10'6 (4.20-5.60); WHITE BLOOD COUNT 5.1 X10'3 (4.5-11.0)
[2022-02-27] MEDS: K and/or MAG REPLACEMENT MC SCH ×2 (08:00→20:00)
[2022-02-27] MEDS: Fluticasone/Umeclidin/Vilanter (Trelegy Ellipta 200-62.5-25) INHALER IH SCH (08:00)
[2022-02-27 08:22] LABS: ALANINE AMINOTRANSFERASE 49 U/L (12-78); ALBUMIN 3.5 G/DL (3.4-5.0); ALBUMIN/GLOBULIN RATIO 0.9 (1.1-1.5); ALKALINE PHOSPHATASE 149 IU/L (46-116); ANION GAP 1 (8-16); ASPARTATE AMINO TRANSFERASE 35 U/L (10-37); BILIRUBIN,TOTAL 0.3 MG/DL (0.1-1.0); BLOOD UREA NITROGEN 68 MG/DL (7-18); BUN/CREATININE RATIO 37.4 (6.6-38.0); CALCIUM 8.9 MG/DL (8.5-10.1); CHLORIDE 94 MMOL/L (99-107); CREATININE 1.82 MG/DL (0.40-0.90); GLUCOSE 197 MG/DL (70-104); MAGNESIUM 2.7 MG/DL (1.5-2.4); POTASSIUM 5.1 MMOL/L (3.5-5.1); SODIUM 133 MMOL/L (135-145); TOTAL CARBON DIOXIDE 37.9 MMOL/L (24-32); TOTAL PROTEIN 7.4 G/DL (6.4-8.2); eGFR 28 ML/MIN
[2022-02-27] MEDS: docusate sod 100mg capsule PO SCH ×2 (09:08→21:08)
[2022-02-27] MEDS: ferrous sulfate 325mg tablet PO SCH (09:09)
[2022-02-27] MEDS: metoprolol tartrate 25mg tablet PO SCH ×2 (09:09→21:07)
[2022-02-27] MEDS: levoTHYROXINE 100mcg tablet PO SCH (09:09)
[2022-02-27] MEDS: nicotine 14mg patch - 24hr TD SCH (09:10)
[2022-02-27] MEDS: heparin, porcine 5000 units/ml vial SQ SCH ×2 (09:13→21:07)
[2022-02-27] MEDS: furosemide 40mg/4ml inj IV SCH ×2 (09:13→21:05)
[2022-02-27] MEDS: insulin Lispro (HumaLOG) vial - multi-dose SQ SCH ×2 (09:36→13:25)
[2022-02-27 18:00] VITALS: BP 159/69
--- NOTE | 2022-02-27 18:36 | NUR ---
Problems reprioritized. Patient report given, questions answered & plan of care reviewed with Keara ALVAREZ patient stable at transfer of care.
[2022-02-27] MEDS: atorvastatin 10mg tablet PO SCH (21:08)
[2022-02-27] MEDS: insulin glargine (Lantus) pen - multi-dose SQ SCH (21:36)
[2022-02-28 02:00] VITALS: BP 153/63
[2022-02-28] MEDS: ipratropium/albuterol 3ml nebule NEB SCH ×6 (02:59→22:20)
[2022-02-28 06:00] VITALS: BP 156/75
[2022-02-28 06:32] LABS: BASOPHILS % (AUTO) 0 % (0-1); EOSINOPHILS % (AUTO) 0 % (0-6); HEMATOCRIT 24.6 % (35.0-45.0); HEMOGLOBIN 7.9 g/dl (12.0-16.0); LYMPHOCYTES # (AUTO) 0.5 X10'3 (1.1-4.8); LYMPHOCYTES % (AUTO) 9.1 % (21-51); MEAN CORPUSCULAR HEMOGLOBIN 28.8 PG (27.0-31.0); MEAN CORPUSCULAR HGB CONC 32.2 g/dL (33.0-36.5); MEAN CORPUSCULAR VOLUME 89.6 FL (78-98); MONOCYTES # (AUTO) 0.2 X10'3 (0-0.9); MONOCYTES % (AUTO) 4.9 % (2-12); NEUTROPHILS # (AUTO) 4.3 X10'3 (1.8-7.7); PLATELET COUNT 196 X10'3 (140-440); RED BLOOD COUNT 2.74 X10'6 (4.20-5.60); RED CELL DISTRIBUTION WIDTH 17.7 % (11.5-14.5)
[2022-02-28 07:12] LABS: ALANINE AMINOTRANSFERASE 55 U/L (12-78); ALBUMIN 3.4 G/DL (3.4-5.0); ALBUMIN/GLOBULIN RATIO 0.9 (1.1-1.5); ALKALINE PHOSPHATASE 133 IU/L (46-116); ANION GAP 3 (8-16); ASPARTATE AMINO TRANSFERASE 39 U/L (10-37); BILIRUBIN,TOTAL 0.3 MG/DL (0.1-1.0); BLOOD UREA NITROGEN 71 MG/DL (7-18); CALCIUM 9.2 MG/DL (8.5-10.1); CHLORIDE 94 MMOL/L (99-107); CREATININE 1.82 MG/DL (0.40-0.90); GLUCOSE 208 MG/DL (70-104); POTASSIUM 5.4 MMOL/L (3.5-5.1); SODIUM 134 MMOL/L (135-145); TOTAL CARBON DIOXIDE 37.4 MMOL/L (24-32); eGFR 28 ML/MIN
[2022-02-28] MEDS: K and/or MAG REPLACEMENT MC SCH ×2 (08:00→20:18)
[2022-02-28] MEDS: Fluticasone/Umeclidin/Vilanter (Trelegy Ellipta 200-62.5-25) INHALER IH SCH (08:00)
[2022-02-28] MEDS: furosemide 40mg/4ml inj IV SCH ×2 (08:30→20:14)
[2022-02-28] MEDS: nicotine 14mg patch - 24hr TD SCH (08:32)
[2022-02-28] MEDS: metoprolol tartrate 25mg tablet PO SCH ×2 (08:34→20:12)
[2022-02-28] MEDS: ferrous sulfate 325mg tablet PO SCH (08:34)
[2022-02-28] MEDS: levoTHYROXINE 100mcg tablet PO SCH (08:34)
[2022-02-28] MEDS: docusate sod 100mg capsule PO SCH ×2 (08:34→20:12)
[2022-02-28] MEDS: methylPREDNISolone sod succ 125mg/2ml vial IV SCH ×2 (08:34→20:13)
[2022-02-28] MEDS: heparin, porcine 5000 units/ml vial SQ SCH ×2 (08:35→20:13)
--- NOTE | 2022-02-28 09:43 | NUR ---
Initial: Pt admit for acute on chronic respiratory failure and exacerbation of CHF and COPD. Currently on a CHO controlled diet and eating well, documented with average 92% PO intake since admit meeting estimated nutrient needs. Noted pt's A1c is 6.1%, well controlled T2DM, though current BG levels in the 200s at times, possibly r/t routine Solumedrol. LBM 02/25, receiving routine bowel care and documented to have received first dose of PRN MoM today. No nutrition intervention implemented at this time. Will continue to follow. Recommendations: 1) Continue CHO controlled diet 2) Monitor need for additional protein for satiety 3) Routine bowel care; continue to utilize PRN bowel care 4) Weekly scaled weights Addendum: 02/28/22 at [address] Amended: Links added.
[2022-02-28] MEDS: insulin Lispro (HumaLOG) vial - multi-dose SQ SCH ×2 (10:02→13:07)
[2022-02-28 12:00] VITALS: BP 157/55
[2022-02-28 18:00] VITALS: BP 124/74
--- NOTE | 2022-02-28 18:33 | NUR ---
Problems reprioritized. Patient report given, questions answered & plan of care reviewed with Keara ALVAREZ.
[2022-02-28] MEDS: atorvastatin 10mg tablet PO SCH (20:12)
[2022-02-28] MEDS: insulin glargine (Lantus) pen - multi-dose SQ SCH (20:42)
--- NOTE | 2022-02-28 21:54 | NUR ---
K+ 5.4 and Mag 2.7, Pt is Sr with occasional to rare PACs (per mri technician). Dr mojica notified. Vss. Pt denies CP and palpitations.
[2022-02-28 22:00] VITALS: BP 166/78
[2022-03-01 02:00] VITALS: BP 152/82
[2022-03-01] MEDS: ipratropium/albuterol 3ml nebule NEB SCH ×6 (03:16→23:29)
[2022-03-01 07:19] VITALS: BP 161/61
[2022-03-01] MEDS: levoTHYROXINE 100mcg tablet PO SCH (07:24)
[2022-03-01] MEDS: nicotine 14mg patch - 24hr TD SCH (07:24)
[2022-03-01] MEDS: methylPREDNISolone sod succ 125mg/2ml vial IV SCH ×2 (07:24→19:09)
[2022-03-01] MEDS: metoprolol tartrate 25mg tablet PO SCH ×2 (07:24→19:09)
[2022-03-01] MEDS: docusate sod 100mg capsule PO SCH ×2 (07:24→19:08)
[2022-03-01] MEDS: heparin, porcine 5000 units/ml vial SQ SCH ×2 (07:25→19:10)
[2022-03-01] MEDS: furosemide 40mg/4ml inj IV SCH ×2 (07:25→19:09)
[2022-03-01] MEDS: ferrous sulfate 325mg tablet PO SCH (07:25)
[2022-03-01] MEDS: K and/or MAG REPLACEMENT MC SCH ×2 (08:00→19:10)
[2022-03-01] MEDS: Fluticasone/Umeclidin/Vilanter (Trelegy Ellipta 200-62.5-25) INHALER IH SCH (08:00)
[2022-03-01] MEDS: insulin Lispro (HumaLOG) vial - multi-dose SQ SCH ×3 (09:03→20:35)
--- NOTE | 2022-03-01 14:32 | NUR ---
PAGED DR. BARTLETT REGARDING LAB BEING UNABLE TO DRAW FROM PATIENT. Message: [id number]. JONNA MIXON. LAB UNABLE TO DRAW FROM PATIENT. PROGRESS NOTE PUT IN ON PATIENT YESTERDAY WAS FOR A DIFFERENT PATIENT. THANK YOU. GABRIELA ALVAREZ X [phone]
[2022-03-01 15:32] LABS: BASOPHILS % (AUTO) 0.1 % (0-1); EOSINOPHILS % (AUTO) 0 % (0-6); HEMATOCRIT 26.3 % (35.0-45.0); HEMOGLOBIN 8.6 g/dl (12.0-16.0); LYMPHOCYTES # (AUTO) 0.5 X10'3 (1.1-4.8); MEAN CORPUSCULAR HEMOGLOBIN 28.9 PG (27.0-31.0); MEAN CORPUSCULAR HGB CONC 32.5 g/dL (33.0-36.5); MEAN CORPUSCULAR VOLUME 88.9 FL (78-98); MEAN PLATELET VOLUME 6.9 FL (7.4-10.4); MONOCYTES # (AUTO) 0.4 X10'3 (0-0.9); MONOCYTES % (AUTO) 5.4 % (2-12); NEUTROPHILS # (AUTO) 5.9 X10'3 (1.8-7.7); NEUTROPHILS % (AUTO) 86.5 % (42-75); PLATELET COUNT 210 X10'3 (140-440); RED BLOOD COUNT 2.96 X10'6 (4.20-5.60); RED CELL DISTRIBUTION WIDTH 17.5 % (11.5-14.5); WHITE BLOOD COUNT 6.8 X10'3 (4.5-11.0)
[2022-03-01 15:45] LABS: ALBUMIN 3.6 G/DL (3.4-5.0); ANION GAP 2 (8-16); BLOOD UREA NITROGEN 63 MG/DL (7-18); BUN/CREATININE RATIO 40.4 (6.6-38.0); CALCIUM 9.3 MG/DL (8.5-10.1); CHLORIDE 97 MMOL/L (99-107); CREATININE 1.56 MG/DL (0.40-0.90); GLUCOSE 180 MG/DL (70-104); MAGNESIUM 2.4 MG/DL (1.5-2.4); POTASSIUM 5.5 MMOL/L (3.5-5.1); SODIUM 137 MMOL/L (135-145); TOTAL CARBON DIOXIDE 38.3 MMOL/L (24-32); eGFR 34 ML/MIN
[2022-03-01] MEDS ORDERED: sodium polystyrene sulfonate 15gm/60ml oral suspension PO ONE (16:05)
[2022-03-01 16:54] VITALS: BP 185/78
[2022-03-01] MEDS ORDERED: hydrALAZINE 20mg/ml inj. IV PRN (17:00)
--- NOTE | 2022-03-01 17:04 | NUR ---
DR. BARTLETT NOTIFIED ABOUT PATIENTS ELEVATED B/P. PATIENT STATES, SHE IS ANXIOUS BECAUSE SHE WANTS TO GO HOME. PER DR. BARTLETT WILL KEEP PATIENT ONE MORE NIGHT TO MONITOR B/P AND POTASSIUM LEVELS. WILL UPDATE PATIENT AND HER WHO IS AT THE BEDSIDE.
[2022-03-01] MEDS: LORazepam 0.5 MG tablet PO PRN (17:25)
[2022-03-01] MEDS: amLODIPine 5mg tablet PO SCH (17:29)
[2022-03-01] MEDS: cefpodoxime proxetil 100mg tablet PO SCH (17:45)
[2022-03-01 18:00] VITALS: BP 180/70
[2022-03-01 18:44] VITALS: BP 159/66
[2022-03-01] MEDS: atorvastatin 10mg tablet PO SCH (20:07)
[2022-03-01] MEDS: insulin glargine (Lantus) pen - multi-dose SQ SCH (20:34)
[2022-03-01 23:18] VITALS: BP 154/69
[2022-03-02 02:38] VITALS: BP 153/64
[2022-03-02] MEDS: ipratropium/albuterol 3ml nebule NEB SCH ×3 (03:28→11:35)
[2022-03-02 06:00] VITALS: BP 179/79
[2022-03-02 06:24] LABS: BASOPHILS % (AUTO) 0.1 % (0-1); EOSINOPHILS % (AUTO) 0 % (0-6); HEMATOCRIT 26.5 % (35.0-45.0); HEMOGLOBIN 8.7 g/dl (12.0-16.0); LYMPHOCYTES # (AUTO) 0.4 X10'3 (1.1-4.8); MEAN CORPUSCULAR HEMOGLOBIN 29.4 PG (27.0-31.0); MEAN CORPUSCULAR HGB CONC 32.7 g/dL (33.0-36.5); MEAN CORPUSCULAR VOLUME 89.7 FL (78-98); MEAN PLATELET VOLUME 6.8 FL (7.4-10.4); MONOCYTES # (AUTO) 0.2 X10'3 (0-0.9); MONOCYTES % (AUTO) 3.4 % (2-12); NEUTROPHILS # (AUTO) 4.6 X10'3 (1.8-7.7); NEUTROPHILS % (AUTO) 88.5 % (42-75); PLATELET COUNT 197 X10'3 (140-440); RED BLOOD COUNT 2.95 X10'6 (4.20-5.60); RED CELL DISTRIBUTION WIDTH 17.7 % (11.5-14.5); WHITE BLOOD COUNT 5.2 X10'3 (4.5-11.0)
[2022-03-02 06:43] LABS: ALANINE AMINOTRANSFERASE 74 U/L (12-78); ALBUMIN 3.4 G/DL (3.4-5.0); ALKALINE PHOSPHATASE 139 IU/L (46-116); ANION GAP 2 (8-16); ASPARTATE AMINO TRANSFERASE 41 U/L (10-37); BILIRUBIN,TOTAL 0.4 MG/DL (0.1-1.0); BLOOD UREA NITROGEN 61 MG/DL (7-18); BUN/CREATININE RATIO 40.7 (6.6-38.0); CALCIUM 8.9 MG/DL (8.5-10.1); CHLORIDE 95 MMOL/L (99-107); GLUCOSE 279 MG/DL (70-104); MAGNESIUM 2.4 MG/DL (1.5-2.4); PHOSPHORUS 6.4 MG/DL (2.3-4.5); SODIUM 136 MMOL/L (135-145); TOTAL CARBON DIOXIDE 39.5 MMOL/L (24-32); TOTAL PROTEIN 6.7 G/DL (6.4-8.2); eGFR 35 ML/MIN
[2022-03-02] MEDS: Fluticasone/Umeclidin/Vilanter (Trelegy Ellipta 200-62.5-25) INHALER IH SCH (08:00)
[2022-03-02] MEDS: K and/or MAG REPLACEMENT MC SCH (08:00)
[2022-03-02] MEDS: nicotine 14mg patch - 24hr TD SCH (08:04)
[2022-03-02] MEDS: cefpodoxime proxetil 100mg tablet PO SCH (08:04)
[2022-03-02] MEDS: levoTHYROXINE 100mcg tablet PO SCH (08:05)
[2022-03-02] MEDS: ferrous sulfate 325mg tablet PO SCH (08:05)
[2022-03-02] MEDS: metoprolol tartrate 25mg tablet PO SCH (08:05)
[2022-03-02] MEDS: docusate sod 100mg capsule PO SCH (08:05)
[2022-03-02] MEDS: methylPREDNISolone sod succ 125mg/2ml vial IV SCH (08:06)
[2022-03-02] MEDS: amLODIPine 5mg tablet PO SCH (08:06)
[2022-03-02] MEDS: heparin, porcine 5000 units/ml vial SQ SCH (08:06)
[2022-03-02] MEDS: furosemide 40mg/4ml inj IV SCH (08:06)
[2022-03-02] MEDS: insulin Lispro (HumaLOG) vial - multi-dose SQ SCH (08:23)
--- NOTE | 2022-03-02 11:29 | NUR ---
O2 Sat at rest on room air:_86__% If below 89%: Recovery O2 Sat at rest on __3_LPM:__92_%:__93_% via (mask/nasal cannula, etc..) No further documentation is necessary. If patient does not drop below 89% while ambulating, he/she does not qualify for home O2.
[2022-03-02] MEDS ORDERED: CEFP100T7 PO (12:02)
[2022-03-02] MEDS ORDERED: LACT1CAP26 PO (12:02)
[2022-03-02] MEDS ORDERED: ALBU90AE INH (12:02)
[2022-03-02] MEDS ORDERED: PRED10TA23 PO (12:02)
[2022-03-02] MEDS ORDERED: NICO-631 TD (12:02)
[2022-03-02] MEDS ORDERED: NOR5T PO (12:02)
[2022-03-02 13:00] VITALS: BP 162/61
[2022-03-02 13:28] VITALS: BP_SYST 172
== END 2022-03-02 14:15 | disposition home health service (06) | DRG 194 ==
LOC: ER 13:03 → ED HOLD 02-23 01:18 → PCU 3S 02-23 07:41
PROVIDERS: ADMIT Internal Medicine; ATTEND Family Medicine
PROC: 5A09357 Assistance with Respiratory Ventilation, Less than 24 Consecutive Hours, Continuous Positive Airway Pressure (ICD-10-PCS; principal; 2022-02-23)
PROC: 5A09357 Assistance with Respiratory Ventilation, Less than 24 Consecutive Hours, Continuous Positive Airway Pressure (ICD-10-PCS; 2022-02-24)
PROC: 5A09357 Assistance with Respiratory Ventilation, Less than 24 Consecutive Hours, Continuous Positive Airway Pressure (ICD-10-PCS; 2022-02-25)
PROC: 5A09357 Assistance with Respiratory Ventilation, Less than 24 Consecutive Hours, Continuous Positive Airway Pressure (ICD-10-PCS; 2022-02-26)
PROC: 5A09357 Assistance with Respiratory Ventilation, Less than 24 Consecutive Hours, Continuous Positive Airway Pressure (ICD-10-PCS; 2022-02-27)
DX: I13.0 Hypertensive heart and chronic kidney disease with heart failure and stage 1 through stage 4 chronic kidney disease, or unspecified chronic kidney disease (principal); J96.20 Acute and chronic respiratory failure, unspecified whether with hypoxia or hypercapnia; G93.40 Encephalopathy, unspecified; E87.29 Other acidosis; I50.33 Acute on chronic diastolic (congestive) heart failure; J44.0 Chronic obstructive pulmonary disease with (acute) lower respiratory infection; E03.9 Hypothyroidism, unspecified; E87.5 Hyperkalemia; Z20.822 Contact with and (suspected) exposure to COVID-19; N17.9 Acute kidney failure, unspecified; I27.81 Cor pulmonale (chronic); E11.22 Type 2 diabetes mellitus with diabetic chronic kidney disease; I27.20 Pulmonary hypertension, unspecified; N18.9 Chronic kidney disease, unspecified; E87.1 Hypo-osmolality and hyponatremia; E66.9 Obesity, unspecified; F17.200 Nicotine dependence, unspecified, uncomplicated; J20.9 Acute bronchitis, unspecified; J44.1 Chronic obstructive pulmonary disease with (acute) exacerbation; Z88.2 Allergy status to sulfonamides; Z79.899 Other long term (current) drug therapy; Z68.41 Body mass index [BMI] 40.0-44.9, adult; Z71.6 Tobacco abuse counseling
CPT/HCPCS: 36415; 36600; 71046; 80048; 80053; 81001; 81003; 82803; 82948; 83036; 83735; 83880; 84100; 84132; 84145; 84443; 84484; 85018; 85025; 87040; 87081; 87502; 87503; 87811; 93005; 93306; 94640; 94660; 94760; 97110; 97161; 97530; 99285; A4615; G0378; J0360; J1644; J1815; J1940; J2930

== ENCOUNTER 2022-03-31 17:17 | Inpatient (IN) | payer MEDICAID ==
[~2022-03-31] VITALS: Ht 157.5 cm; Wt 104.6 kg
[2022-03-31] VITALS (7 sets, daily range): BP systolic 97–140; BP diastolic 35–104
[~2022-03-31 17:17] MED LIST changes: -ALBU17AE26 PO; +ALBU90AE INH; +ATOR10TA70 PO; -ATOR20TA66 PO; -BACL20TA PO; -BUPR-72 PO; +CEFP100T7 PO; +DOCU-342 PO; +FERR325T29 PO; -GLIM4TAB7 PO; +LACT1CAP26 PO; +METF-1203 PO; -MUPI22OI30 TOP; +NICO-631 TD; +NOR5T PO; +PRED10TA23 PO; -PRED20TA PO; +etomidate 2mg/ml inj. ONE; +rocuronium 10mg/ml inj IV ONE
[2022-03-31 17:38] LABS: ABG BASE EXCESS -1.9 mmol/L (-2.0-2.0); ABG OXYGEN SATURATION 90.2 % (94-97); ABG PCO2 (T) 74.8 mmHg (32.0-45.0); ABG PO2 (T) 70.6 mmHg (75.0-100.0); ALLEN'S TEST POSITIVE; FCOHb 6.9 % (0.0-3.9); FLOW 8 L/min; FMetHb 0.3 % (0.0-1.5); FO2Hb 83.7 % (94-97); PATIENT TEMPERATURE 36.9; TOTAL HEMOGLOBIN 8.1 G/dl (12.0-16.0)
[2022-03-31 18:12] LABS: ALANINE AMINOTRANSFERASE 233 U/L (12-78); ALBUMIN 3.5 G/DL (3.4-5.0); ALBUMIN/GLOBULIN RATIO 0.9 (1.1-1.5); ALKALINE PHOSPHATASE 223 IU/L (46-116); ANION GAP 11 (8-16); ASPARTATE AMINO TRANSFERASE 217 U/L (10-37); BILIRUBIN,TOTAL 0.5 MG/DL (0.1-1.0); BLOOD UREA NITROGEN 71 MG/DL (7-18); BUN/CREATININE RATIO 15.7 (6.6-38.0); CALCIUM 8.2 MG/DL (8.5-10.1); CHLORIDE 84 MMOL/L (99-107); CREATININE 4.53 MG/DL (0.40-0.90); GLUCOSE 147 MG/DL (70-104); SODIUM 122 MMOL/L (135-145); TOTAL CARBON DIOXIDE 26.9 MMOL/L (24-32); TOTAL PROTEIN 7.3 G/DL (6.4-8.2); eGFR 10 ML/MIN
[2022-03-31 18:15] LABS: BASOPHILS # (AUTO) 0.1 X10'3 (0-0.2); BASOPHILS % (AUTO) 0.6 % (0-1); EOSINOPHILS % (AUTO) 0.1 % (0-6); HEMATOCRIT 23.5 % (35.0-45.0); HEMOGLOBIN 7.3 g/dl (12.0-16.0); LYMPHOCYTES # (AUTO) 1.1 X10'3 (1.1-4.8); LYMPHOCYTES % (AUTO) 6.7 % (21-51); MEAN CORPUSCULAR HEMOGLOBIN 29.5 PG (27.0-31.0); MEAN CORPUSCULAR HGB CONC 30.9 g/dL (33.0-36.5); MEAN CORPUSCULAR VOLUME 95.5 FL (78-98); MEAN PLATELET VOLUME 7.7 FL (7.4-10.4); MONOCYTES # (AUTO) 0.8 X10'3 (0-0.9); MONOCYTES % (AUTO) 4.9 % (2-12); NEUTROPHILS # (AUTO) 14.8 X10'3 (1.8-7.7); NEUTROPHILS % (AUTO) 87.7 % (42-75); PLATELET COUNT 258 X10'3 (140-440); RED BLOOD COUNT 2.46 X10'6 (4.20-5.60); RED CELL DISTRIBUTION WIDTH 20.5 % (11.5-14.5); WHITE BLOOD COUNT 16.9 X10'3 (4.5-11.0)
--- NOTE | 2022-03-31 18:15 | NUR ---
DISCUSSED CARE WITH DR. MELLO. PT NOT RESPONDING TO VERBAL ONLY SHAKING. PT RESPONDS WITH OPENING HER EYES. MD ORDERED REPEAT ABG
--- NOTE | 2022-03-31 18:29 | NUR ---
ANTHONY AT BEDSIDE ORDERED TO INTUBATE.
[2022-03-31 18:32] LABS: ANISOCYTOSIS 3+; PLATELET ESTIMATE NORMAL
[2022-03-31 18:33] LABS: POLYCHROMASIA FEW
--- NOTE | 2022-03-31 18:35 | NUR ---
CRITICAL POTASSIUM OF 7.0 RECEIVED FROM ELIJAH IN LAB, REPORTED TO DR MELLO
--- NOTE | 2022-03-31 18:39 | NUR ---
RSI 1838 ETOMIDATE 30MG 1839 ROCURONIUM 75MG INTUBATION 1840, 24 AT TEETH
[2022-03-31] MEDS ORDERED: dextrose 50%-water 50ml dispensing syringe IV ONE (18:45)
[2022-03-31] MEDS ORDERED: sodium polystyrene sulfonate 15gm/60ml oral suspension PO ONE (18:45)
[2022-03-31] MEDS ORDERED: insulin regular, human U-100 3ml vial - multi-dose IV ONE (18:45)
[2022-03-31] MEDS ORDERED: sodium bicarbonate (8.4%) 1 mEq/ml syringe IV ONE (18:45)
[2022-03-31] MEDS ORDERED: rocuronium 10mg/ml inj IV ONE (18:55)
[2022-03-31] MEDS ORDERED: etomidate 2mg/ml inj. IV ONE (18:55)
[2022-03-31] MEDS ORDERED: FENTANYL-0.9 % NACL/PF 100 ML IV PRN ×3 (19:05→20:26)
[2022-03-31 19:13] LABS: ABG BASE EXCESS 0.3 mmol/L (-2.0-2.0); ABG HCO3 26.9 mmol/L (22.0-26.0); ABG OXYGEN SATURATION 96.8 % (94-97); ABG PCO2 (T) 54.1 mmHg (32.0-45.0); ABG PO2 (T) 93.2 mmHg (75.0-100.0); ALLEN'S TEST POSITIVE; FCOHb 5.9 % (0.0-3.9); FMetHb 0.3 % (0.0-1.5); FO2Hb 90.8 % (94-97); PATIENT TEMPERATURE 36.4; PEEP 5 cm H2O; RESPIRATORY RATE 20 b/min; TIDAL VOLUME 400 mL; TOTAL HEMOGLOBIN 7.4 G/dl (12.0-16.0)
[2022-03-31] MEDS ORDERED: ondansetron/PF 4mg/2ml inj IV PRN (19:45)
[2022-03-31] MEDS ORDERED: magnesium hydroxide 30ml (MOM) UD suspension PO PRN (19:45)
[2022-03-31] MEDS ORDERED: magnesium Cl slow-release 64mg tablet PO PRN (19:45)
[2022-03-31] MEDS ORDERED: magnesium 4gm in 100ml NS 100 ML IV PRN (19:45)
[2022-03-31] MEDS ORDERED: mag hydrox/Alum hydrox/simeth 30ml oral suspension PO PRN (19:45)
[2022-03-31] MEDS ORDERED: acetaminophen 325mg tablet PO PRN (19:45)
[2022-03-31] MEDS: docusate sod 100mg capsule PO SCH (20:00)
[2022-03-31] MEDS: sodium polystyrene sulfonate 15gm/60ml oral suspension PO SCH (20:00)
[2022-03-31] MEDS ORDERED: SYN0.088T PO (20:04)
[2022-03-31] MEDS ORDERED: ALB0.5UD IH (20:04)
[2022-03-31] MEDS ORDERED: FURO-150 PO (20:04)
[2022-03-31] MEDS ORDERED: ALBU90AE INH (20:04)
[2022-03-31] MEDS ORDERED: AMLO2.5T2 PO (20:04)
[2022-03-31] MEDS ORDERED: LOP25T PO (20:04)
[2022-03-31] MEDS ORDERED: METF-436 PO (20:04)
[2022-03-31] MEDS ORDERED: ASPI81TA52 PO (20:04)
[2022-03-31] MEDS ORDERED: DOCU100C38 PO (20:04)
[2022-03-31] MEDS ORDERED: ATOR10TA87 PO (20:04)
[2022-03-31] MEDS ORDERED: GLIM4TAB7 PO (20:04)
[2022-03-31 21:15] LABS: ALBUMIN 3.4 G/DL (3.4-5.0); ANION GAP 11 (8-16); BLOOD UREA NITROGEN 73 MG/DL (7-18); BUN/CREATININE RATIO 15.8 (6.6-38.0); CALCIUM 8.2 MG/DL (8.5-10.1); CHLORIDE 85 MMOL/L (99-107); CREATININE 4.63 MG/DL (0.40-0.90); GLUCOSE 165 MG/DL (70-104); POTASSIUM 5.5 MMOL/L (3.5-5.1); SODIUM 128 MMOL/L (135-145); TOTAL CARBON DIOXIDE 32.3 MMOL/L (24-32); eGFR 10 ML/MIN
[2022-03-31] MEDS: ipratropium/albuterol 3ml nebule NEB SCH (22:22)
[2022-04-01] VITALS (36 sets, daily range): BP systolic 75–125; BP diastolic 30–92
[2022-04-01] MEDS: heparin, porcine 5000 units/ml vial SQ SCH ×3 (00:27→21:26)
[2022-04-01] MEDS: sodium polystyrene sulfonate 15gm/60ml oral suspension PO SCH (02:00)
[2022-04-01 02:47] LABS: BASOPHILS % (AUTO) 0.2 % (0-1); EOSINOPHILS % (AUTO) 0.1 % (0-6); LYMPHOCYTES # (AUTO) 1.3 X10'3 (1.1-4.8); LYMPHOCYTES % (AUTO) 12.2 % (21-51); MEAN CORPUSCULAR HGB CONC 32.1 g/dL (33.0-36.5); MEAN CORPUSCULAR VOLUME 93.4 FL (78-98); MEAN PLATELET VOLUME 7.2 FL (7.4-10.4); MONOCYTES # (AUTO) 0.6 X10'3 (0-0.9); MONOCYTES % (AUTO) 5.9 % (2-12); NEUTROPHILS # (AUTO) 8.8 X10'3 (1.8-7.7); NEUTROPHILS % (AUTO) 81.6 % (42-75); PLATELET COUNT 195 X10'3 (140-440); RED BLOOD COUNT 2.19 X10'6 (4.20-5.60); RED CELL DISTRIBUTION WIDTH 19.6 % (11.5-14.5); WHITE BLOOD COUNT 10.8 X10'3 (4.5-11.0)
[2022-04-01 02:54] LABS: ALBUMIN 3.3 G/DL (3.4-5.0); ANION GAP 8 (8-16); BLOOD UREA NITROGEN 71 MG/DL (7-18); BUN/CREATININE RATIO 15.1 (6.6-38.0); CALCIUM 7.6 MG/DL (8.5-10.1); CHLORIDE 87 MMOL/L (99-107); CREATININE 4.69 MG/DL (0.40-0.90); GLUCOSE 89 MG/DL (70-104); POTASSIUM 5.2 MMOL/L (3.5-5.1); SODIUM 128 MMOL/L (135-145); TOTAL CARBON DIOXIDE 32.6 MMOL/L (24-32); eGFR 9 ML/MIN
[2022-04-01 02:56] LABS: HEMOGLOBIN 6.6 g/dl (12.0-16.0)
[2022-04-01 02:57] LABS: HEMATOCRIT 20.5 % (35.0-45.0)
[2022-04-01 02:58] LABS: ABG HCO3 33.5 mmol/L (22.0-26.0); ABG OXYGEN SATURATION 84.4 % (94-97); ABG PCO2 (T) 66.7 mmHg (32.0-45.0); ABG PO2 (T) 53.2 mmHg (75.0-100.0); ALLEN'S TEST POSITIVE; FCOHb 1.9 % (0.0-3.9); FMetHb 0.5 % (0.0-1.5); FO2Hb 82.4 % (94-97); PATIENT TEMPERATURE 36.4; PEEP 5 cm H2O; RESPIRATORY RATE 20 b/min; TIDAL VOLUME 400 mL; TOTAL HEMOGLOBIN 8.8 G/dl (12.0-16.0)
[2022-04-01] MEDS: ipratropium/albuterol 3ml nebule NEB SCH ×6 (03:00→23:06)
[2022-04-01 03:34] LABS: CLARITY,URINE CLOUDY (Clear); COLOR,URINE YELLOW (Yellow); GLUCOSE, URINE NEGATIVE (Neg); KETONES,URINE NEGATIVE (Neg); LEUKOCYTE ESTERASE ,URINE SMALL (Neg); NITRITES, URINE NEGATIVE (Neg); OCCULT BLOOD,URINE LARGE (Neg); PROTEIN,URINE 100 mg/dl (Neg); UROBILINOGEN,URINE 0.2 E.U/dL (0.2-1.0)
[2022-04-01 03:45] LABS: UA COLLECTION TYPE NON-SPECIFIED
[2022-04-01 03:47] LABS: BACTERIA,URINE 1+ /HPF (Neg); MUCUS STRANDS FEW /LPF (Neg); RBC,URINE TNTC /HPF (0-2); SQUAMOUS EPITHELIAL CELL,UR FEW /LPF (FEW); TRANSITIONAL EPI CELLS,URINE FEW /HPF
[2022-04-01 03:48] LABS: YEAST FEW /HPF (NEGATIVE)
[2022-04-01] MEDS: methylPREDNISolone sod succ 125mg/2ml vial IV SCH ×4 (03:55→21:25)
[2022-04-01] MEDS ORDERED: normal saline 500ml IV soln 500 ML IV ONE (03:55)
[2022-04-01 04:01] LABS: ANISOCYTOSIS 2+; PLATELET ESTIMATE NORMAL
[2022-04-01 04:02] LABS: POLYCHROMASIA 1+; STOMATOCYTES FEW
[2022-04-01 04:03] LABS: TOTAL PROTEIN,URINE RANDOM 288.1 MG/DL
[2022-04-01 04:39] LABS: UA EOSINOPHILS NO EOS /HPF
--- NOTE | 2022-04-01 06:34 | NUR ---
Problems reprioritized. Patient report given, questions answered & plan of care reviewed with KIM Palma.
[2022-04-01] MEDS ORDERED: dextrose 50%-water 50ml dispensing syringe IV ONE (07:27)
[2022-04-01] MEDS ORDERED: methylPREDNISolone sod succ 125mg/2ml vial IV SCH (08:00)
[2022-04-01] MEDS: docusate sod 100mg capsule PO SCH (08:00)
[2022-04-01] MEDS ORDERED: pantoprazole 40mg IV 80 MG in normal saline 100ml IV soln 100 ML IV SCH (08:00)
[2022-04-01 08:22] LABS: MAGNESIUM 2.8 MG/DL (1.5-2.4); PHOSPHORUS 7.2 MG/DL (2.3-4.5)
[2022-04-01] MEDS ORDERED: propofol 1000mg/100ml bottle 100 ML IV ONE (09:09)
[2022-04-01] MEDS ORDERED: propofol 1000mg/100ml bottle 100 ML IV SCH (09:15)
[2022-04-01] MEDS ORDERED: DEXTROSE 15 GM of carb/4 tabs (each vial/BOTTLE has 4 tablets) PO PRN ×2 (09:20)
[2022-04-01] MEDS ORDERED: MESSAGE TO PHARMACY PO ONE (09:20)
[2022-04-01] MEDS ORDERED: glucagon, human recombinant 1mg kit SUBCUT PRN (09:20)
[2022-04-01] MEDS ORDERED: dextrose 50%-water 50ml dispensing syringe IV PRN ×2 (09:20)
[2022-04-01] MEDS ORDERED: insulin Lispro (HumaLOG) vial - multi-dose SQ SCH (09:20)
[2022-04-01] MEDS: propofol 1000mg/100ml bottle 100 ML IV SCH ×3 (09:46→20:31)
[2022-04-01] MEDS ORDERED: FENTANYL-0.9 % NACL/PF 100 ML IV PRN (09:46)
[2022-04-01] MEDS ORDERED: vancomycin/NS 1 GM ADD-VANTAGE 250 ML IV ONE (09:50)
[2022-04-01] MEDS ORDERED: piperacillin/tazo 3.375gm/50ml 50 ML IV SCH (10:05)
[2022-04-01 10:16] LABS: ALBUMIN 3.1 G/DL (3.4-5.0); ANION GAP 7 (8-16); BLOOD UREA NITROGEN 72 MG/DL (7-18); BUN/CREATININE RATIO 14.7 (6.6-38.0); CALCIUM 7.5 MG/DL (8.5-10.1); CHLORIDE 88 MMOL/L (99-107); GLUCOSE 91 MG/DL (70-104); POTASSIUM 5.2 MMOL/L (3.5-5.1); SODIUM 128 MMOL/L (135-145); TOTAL CARBON DIOXIDE 33.1 MMOL/L (24-32); eGFR 9 ML/MIN
[2022-04-01 10:45] LABS: ABG BASE EXCESS 2.9 mmol/L (-2.0-2.0); ABG HCO3 29.4 mmol/L (22.0-26.0); ABG OXYGEN SATURATION 79.3 % (94-97); ABG PCO2 (T) 56.7 mmHg (32.0-45.0); ABG PO2 (T) 46.3 mmHg (75.0-100.0); FCOHb 0.7 % (0.0-3.9); FMetHb 0.3 % (0.0-1.5); FO2Hb 78.5 % (94-97); RESPIRATORY RATE 20 b/min; TIDAL VOLUME 400 mL; TOTAL HEMOGLOBIN 8.2 G/dl (12.0-16.0)
--- NOTE | 2022-04-01 10:57 | NUR ---
Initial: Pt admit for acute respiratory failure, COPD exacerbation, YARITZA, and transaminitis. Pt intubated at this time, with an OGT in place. Per RN pt with a GIB, no plans to initiate nutrition support at this time pending GI consult. Will place TF recs below for if cleared to begin EN. Propofol visualized at bedside to be running at 3.65 mL/hr providing 96 kcal/day. Per EMR pt with T2DM, A1c pending at this time. LBM 03/31. Will continue to follow closely. Recommendations: 1) IF TF via OGT and Propofol at 3.65 mL/hr (96 kcal/day), continuous Vital HP with 65 mL/hr goal rate to provide 1560 mL total volume/day, 1560 kcal, 137 g protein, and 1304 mL water. Begin at 25 mL/hr and advance by 20 mL Q8H as tolerated to goal rate 2) IF TF, additional water flush per physician in view of current renal status with hyponatremia 3) IF TF, prealbumin q Sunday/; daily scaled weights 4) IF TF, consider phos binder given hyperphosphatemia 5) Bowel care per physician Addendum: 04/01/22 at [address] Amended: Links added.
[2022-04-01 11:04] LABS: HEMOGLOBIN A1C 5.1 % (4.5-6.2)
[2022-04-01] MEDS: pantoprazole 40MG/NS 100ML BAG 100 ML IV SCH ×4 (11:56→22:54)
[2022-04-01 12:54] LABS: ALANINE AMINOTRANSFERASE 237 U/L (12-78); ALKALINE PHOSPHATASE 185 IU/L (46-116); ASPARTATE AMINO TRANSFERASE 187 U/L (10-37); BILIRUBIN,DIRECT 0.2 MG/DL (0-0.3); BILIRUBIN,TOTAL 0.4 MG/DL (0.1-1.0); TOTAL PROTEIN 6.3 G/DL (6.4-8.2)
[2022-04-01] MEDS ORDERED: MIDAZolam 1 MG/ML 5ML VIAL ONE (13:15)
[2022-04-01] MEDS ORDERED: fentaNYL/PF 50MCG/1 ML 2ML syringe ONE ×2 (13:15→13:16)
[2022-04-01] MEDS ORDERED: LIDOcaine Viscous 15ml cup ONE (13:15)
[2022-04-01 14:30] LABS: HEMATOCRIT 23.8 % (35.0-45.0); HEMOGLOBIN 7.6 g/dl (12.0-16.0); MEAN CORPUSCULAR HEMOGLOBIN 29.9 PG (27.0-31.0); MEAN CORPUSCULAR HGB CONC 31.9 g/dL (33.0-36.5); MEAN PLATELET VOLUME 7.3 FL (7.4-10.4); PLATELET COUNT 186 X10'3 (140-440); RED BLOOD COUNT 2.54 X10'6 (4.20-5.60); RED CELL DISTRIBUTION WIDTH 18.6 % (11.5-14.5); WHITE BLOOD COUNT 11.6 X10'3 (4.5-11.0)
[2022-04-01 14:52] LABS: BASOPHILS % (AUTO) 0.1 % (0-1); EOSINOPHILS % (AUTO) 0 % (0-6); HEMATOCRIT 23.8 % (35.0-45.0); HEMOGLOBIN 7.5 g/dl (12.0-16.0); LYMPHOCYTES # (AUTO) 0.3 X10'3 (1.1-4.8); LYMPHOCYTES % (AUTO) 2.3 % (21-51); MEAN CORPUSCULAR HEMOGLOBIN 29.7 PG (27.0-31.0); MEAN CORPUSCULAR HGB CONC 31.5 g/dL (33.0-36.5); MEAN CORPUSCULAR VOLUME 94.4 FL (78-98); MEAN PLATELET VOLUME 7.4 FL (7.4-10.4); MONOCYTES # (AUTO) 0.1 X10'3 (0-0.9); MONOCYTES % (AUTO) 0.8 % (2-12); NEUTROPHILS # (AUTO) 11.6 X10'3 (1.8-7.7); NEUTROPHILS % (AUTO) 96.8 % (42-75); PLATELET COUNT 190 X10'3 (140-440); RED BLOOD COUNT 2.52 X10'6 (4.20-5.60); RED CELL DISTRIBUTION WIDTH 19.2 % (11.5-14.5)
[2022-04-01 15:03] LABS: ANION GAP 8 (8-16); BLOOD UREA NITROGEN 72 MG/DL (7-18); BUN/CREATININE RATIO 14.4 (6.6-38.0); CALCIUM 7.2 MG/DL (8.5-10.1); CHLORIDE 85 MMOL/L (99-107); GLUCOSE 126 MG/DL (70-104); POTASSIUM 5.5 MMOL/L (3.5-5.1); SODIUM 125 MMOL/L (135-145); TOTAL CARBON DIOXIDE 31.8 MMOL/L (24-32); eGFR 9 ML/MIN
[2022-04-01] MEDS ORDERED: magnesium 4gm in 100ml NS 100 ML IV PRN (15:15)
[2022-04-01] MEDS ORDERED: calcium chloride inj. 1,000 MG in normal saline 100ml IV soln 100 ML IV PRN (15:15)
[2022-04-01] MEDS ORDERED: heparin 10,000 units/1 ML INJ IV PRN (15:15)
[2022-04-01] MEDS ORDERED: heparin 10,000 units/1 ML INJ IV ONE (15:15)
[2022-04-01] MEDS ORDERED: vasopressin inj. 40 UNIT in normal saline 50ml IV soln 38 ML IV PRN (17:55)
[2022-04-01 18:29] LABS: BASOPHILS % (AUTO) 0.1 % (0-1); EOSINOPHILS % (AUTO) 0 % (0-6); HEMATOCRIT 22.8 % (35.0-45.0); HEMOGLOBIN 7.4 g/dl (12.0-16.0); LYMPHOCYTES # (AUTO) 0.3 X10'3 (1.1-4.8); LYMPHOCYTES % (AUTO) 2.8 % (21-51); MEAN CORPUSCULAR HEMOGLOBIN 30.5 PG (27.0-31.0); MEAN CORPUSCULAR HGB CONC 32.3 g/dL (33.0-36.5); MEAN CORPUSCULAR VOLUME 94.4 FL (78-98); MEAN PLATELET VOLUME 7.2 FL (7.4-10.4); MONOCYTES # (AUTO) 0.1 X10'3 (0-0.9); MONOCYTES % (AUTO) 1.2 % (2-12); NEUTROPHILS # (AUTO) 10.5 X10'3 (1.8-7.7); NEUTROPHILS % (AUTO) 95.9 % (42-75); PLATELET COUNT 173 X10'3 (140-440); RED BLOOD COUNT 2.42 X10'6 (4.20-5.60)
[2022-04-01 18:42] LABS: ALBUMIN 2.9 G/DL (3.4-5.0); ANION GAP 7 (8-16); BLOOD UREA NITROGEN 70 MG/DL (7-18); BUN/CREATININE RATIO 14.5 (6.6-38.0); CHLORIDE 89 MMOL/L (99-107); CREATININE 4.83 MG/DL (0.40-0.90); GLUCOSE 141 MG/DL (70-104); MAGNESIUM 2.5 MG/DL (1.5-2.4); PHOSPHORUS 6.5 MG/DL (2.3-4.5); POTASSIUM 5.3 MMOL/L (3.5-5.1); SODIUM 128 MMOL/L (135-145); TOTAL CARBON DIOXIDE 31.6 MMOL/L (24-32); eGFR 9 ML/MIN
[2022-04-01 19:34] LABS: BASOPHILS % (AUTO) 0.1 % (0-1); EOSINOPHILS % (AUTO) 0 % (0-6); HEMATOCRIT 22.7 % (35.0-45.0); HEMOGLOBIN 7.2 g/dl (12.0-16.0); LYMPHOCYTES # (AUTO) 0.4 X10'3 (1.1-4.8); LYMPHOCYTES % (AUTO) 3.1 % (21-51); MEAN CORPUSCULAR HEMOGLOBIN 29.6 PG (27.0-31.0); MEAN CORPUSCULAR HGB CONC 31.5 g/dL (33.0-36.5); MEAN PLATELET VOLUME 7.4 FL (7.4-10.4); MONOCYTES # (AUTO) 0.2 X10'3 (0-0.9); MONOCYTES % (AUTO) 1.4 % (2-12); NEUTROPHILS # (AUTO) 11.2 X10'3 (1.8-7.7); NEUTROPHILS % (AUTO) 95.4 % (42-75); PLATELET COUNT 175 X10'3 (140-440); RED BLOOD COUNT 2.42 X10'6 (4.20-5.60); RED CELL DISTRIBUTION WIDTH 19.7 % (11.5-14.5); WHITE BLOOD COUNT 11.8 X10'3 (4.5-11.0)
[2022-04-01 19:45] LABS: ALBUMIN 2.9 G/DL (3.4-5.0); ANION GAP 9 (8-16); BLOOD UREA NITROGEN 65 MG/DL (7-18); BUN/CREATININE RATIO 14.5 (6.6-38.0); CHLORIDE 90 MMOL/L (99-107); CREATININE 4.49 MG/DL (0.40-0.90); GLUCOSE 134 MG/DL (70-104); MAGNESIUM 2.5 MG/DL (1.5-2.4); POTASSIUM 5.1 MMOL/L (3.5-5.1); SODIUM 129 MMOL/L (135-145); TOTAL CARBON DIOXIDE 30.2 MMOL/L (24-32); eGFR 10 ML/MIN
[2022-04-01] MEDS: mineral oil/petrolatum ophthal oint EACHEYE SCH (20:00)
[2022-04-01] MEDS: bicarb dialysis sol 2K+/3 Ca2+ 5,000 ML HE SCH ×6 (20:47→22:05)
[2022-04-01] MEDS: insulin glargine (Lantus) pen - multi-dose SQ SCH (21:00)
[2022-04-01] MEDS ORDERED: docusate sodium 100mg/10ml UD cup PO SCH (21:28)
[2022-04-01 22:46] LABS: BASOPHILS % (AUTO) 0.1 % (0-1); EOSINOPHILS % (AUTO) 0 % (0-6); HEMATOCRIT 23.6 % (35.0-45.0); HEMOGLOBIN 7.4 g/dl (12.0-16.0); LYMPHOCYTES # (AUTO) 0.3 X10'3 (1.1-4.8); LYMPHOCYTES % (AUTO) 2.7 % (21-51); MEAN CORPUSCULAR HEMOGLOBIN 29.7 PG (27.0-31.0); MEAN CORPUSCULAR HGB CONC 31.5 g/dL (33.0-36.5); MEAN CORPUSCULAR VOLUME 94.3 FL (78-98); MEAN PLATELET VOLUME 7.4 FL (7.4-10.4); MONOCYTES # (AUTO) 0.1 X10'3 (0-0.9); NEUTROPHILS % (AUTO) 96.2 % (42-75); PLATELET COUNT 177 X10'3 (140-440); RED CELL DISTRIBUTION WIDTH 18.8 % (11.5-14.5); WHITE BLOOD COUNT 12.5 X10'3 (4.5-11.0)
[2022-04-01] MEDS: piperacillin/tazo 3.375gm/50ml 50 ML IV SCH (22:54)
[2022-04-01 22:59] LABS: ANION GAP 6 (8-16); BLOOD UREA NITROGEN 59 MG/DL (7-18); BUN/CREATININE RATIO 14.3 (6.6-38.0); CALCIUM 7.7 MG/DL (8.5-10.1); CHLORIDE 91 MMOL/L (99-107); CREATININE 4.12 MG/DL (0.40-0.90); GLUCOSE 123 MG/DL (70-104); MAGNESIUM 2.5 MG/DL (1.5-2.4); PHOSPHORUS 5.7 MG/DL (2.3-4.5); POTASSIUM 4.9 MMOL/L (3.5-5.1); SODIUM 129 MMOL/L (135-145); TOTAL CARBON DIOXIDE 31.9 MMOL/L (24-32); eGFR 11 ML/MIN
[2022-04-02] VITALS (35 sets, daily range): BP systolic 91–122; BP diastolic 37–52
[2022-04-02] MEDS: bicarb dialysis sol 2K+/3 Ca2+ 5,000 ML HE SCH ×18 (00:08→23:33)
[2022-04-02] MEDS: propofol 1000mg/100ml bottle 100 ML IV SCH ×6 (00:45→22:37)
[2022-04-02] MEDS: fentaNYL 50mcg/ml PF inj. 2,500 MCG in normal saline 250ml IV soln 200 ML IV PRN ×2 (00:52→17:11)
[2022-04-02 02:47] LABS: BASOPHILS % (AUTO) 0.2 % (0-1); EOSINOPHILS % (AUTO) 0 % (0-6); HEMATOCRIT 22.9 % (35.0-45.0); HEMOGLOBIN 7.2 g/dl (12.0-16.0); LYMPHOCYTES # (AUTO) 0.3 X10'3 (1.1-4.8); LYMPHOCYTES % (AUTO) 2.3 % (21-51); MEAN CORPUSCULAR HEMOGLOBIN 29.6 PG (27.0-31.0); MEAN CORPUSCULAR HGB CONC 31.3 g/dL (33.0-36.5); MEAN CORPUSCULAR VOLUME 94.6 FL (78-98); MEAN PLATELET VOLUME 7.2 FL (7.4-10.4); MONOCYTES # (AUTO) 0.2 X10'3 (0-0.9); NEUTROPHILS # (AUTO) 11.9 X10'3 (1.8-7.7); NEUTROPHILS % (AUTO) 95.5 % (42-75); PLATELET COUNT 175 X10'3 (140-440); RED BLOOD COUNT 2.42 X10'6 (4.20-5.60); RED CELL DISTRIBUTION WIDTH 19.1 % (11.5-14.5); WHITE BLOOD COUNT 12.4 X10'3 (4.5-11.0)
[2022-04-02] MEDS: mineral oil/petrolatum ophthal oint EACHEYE SCH ×4 (02:48→20:00)
[2022-04-02] MEDS: VANCOMYCIN LEVEL IV SCH (02:48)
[2022-04-02] MEDS: methylPREDNISolone sod succ 125mg/2ml vial IV SCH ×3 (02:50→14:02)
[2022-04-02] MEDS: ipratropium/albuterol 3ml nebule NEB SCH ×6 (02:53→22:49)
[2022-04-02 03:09] LABS: ABG BASE EXCESS 1.5 mmol/L (-2.0-2.0); ABG HCO3 28.4 mmol/L (22.0-26.0); ABG OXYGEN SATURATION 90.1 % (94-97); ABG PCO2 (T) 56.4 mmHg (32.0-45.0); ALLEN'S TEST POSITIVE; FCOHb 0.5 % (0.0-3.9); FMetHb 0.3 % (0.0-1.5); FO2Hb 89.4 % (94-97); PEEP 5 cm H2O; RESPIRATORY RATE 20 b/min; TIDAL VOLUME 400 mL; TOTAL HEMOGLOBIN 8.3 G/dl (12.0-16.0)
[2022-04-02 03:16] LABS: ALANINE AMINOTRANSFERASE 188 U/L (12-78); ALBUMIN/GLOBULIN RATIO 0.9 (1.1-1.5); ALKALINE PHOSPHATASE 166 IU/L (46-116); ANION GAP 7 (8-16); ASPARTATE AMINO TRANSFERASE 111 U/L (10-37); BILIRUBIN,TOTAL 0.6 MG/DL (0.1-1.0); BLOOD UREA NITROGEN 45 MG/DL (7-18); BUN/CREATININE RATIO 13.7 (6.6-38.0); CALCIUM 8.2 MG/DL (8.5-10.1); CHLORIDE 94 MMOL/L (99-107); CREATININE 3.29 MG/DL (0.40-0.90); GLUCOSE 110 MG/DL (70-104); MAGNESIUM 2.3 MG/DL (1.5-2.4); PHOSPHORUS 5.1 MG/DL (2.3-4.5); POTASSIUM 4.5 MMOL/L (3.5-5.1); SODIUM 130 MMOL/L (135-145); TOTAL CARBON DIOXIDE 29.3 MMOL/L (24-32); TOTAL PROTEIN 6.2 G/DL (6.4-8.2); TRIGLYCERIDES 268 MG/DL (20-135); VANCOMYCIN,RANDOM 7.6 UG/ML; eGFR 14 ML/MIN
[2022-04-02] MEDS: NORepinephrine 8mg/ 250ml NS 250 ML IV SCH ×3 (03:19→14:50)
[2022-04-02 03:27] LABS: ANISOCYTOSIS 2+; PLATELET ESTIMATE NORMAL; POLYCHROMASIA FEW; STOMATOCYTES 1+; TOTAL CELLS COUNTED 100
[2022-04-02 03:28] LABS: HYPOCHROMASIA 1+
[2022-04-02] MEDS: pantoprazole 40MG/NS 100ML BAG 100 ML IV SCH ×5 (04:25→19:42)
--- NOTE | 2022-04-02 06:00 | NUR ---
Patient in room CICU 2011. I have received report from Genet ALVAREZ and had the opportunity to ask questions and assume patient care.
[2022-04-02] MEDS: heparin, porcine 5000 units/ml vial SQ SCH ×2 (07:22→20:08)
[2022-04-02] MEDS ORDERED: vancomycin/NS 1 GM ADD-VANTAGE 250 ML IV PRN (08:00)
[2022-04-02] MEDS ORDERED: vancomycin/NS 1 GM ADD-VANTAGE 250 ML IV ONE (08:30)
[2022-04-02 09:43] LABS: BASOPHILS % (AUTO) 0.2 % (0-1); EOSINOPHILS % (AUTO) 0 % (0-6); HEMATOCRIT 24.6 % (35.0-45.0); HEMOGLOBIN 7.6 g/dl (12.0-16.0); LYMPHOCYTES # (AUTO) 0.3 X10'3 (1.1-4.8); LYMPHOCYTES % (AUTO) 1.8 % (21-51); MEAN CORPUSCULAR HEMOGLOBIN 29.3 PG (27.0-31.0); MEAN CORPUSCULAR HGB CONC 30.7 g/dL (33.0-36.5); MEAN CORPUSCULAR VOLUME 95.3 FL (78-98); MONOCYTES # (AUTO) 0.6 X10'3 (0-0.9); MONOCYTES % (AUTO) 3.2 % (2-12); NEUTROPHILS # (AUTO) 18.6 X10'3 (1.8-7.7); NEUTROPHILS % (AUTO) 94.8 % (42-75); PLATELET COUNT 234 X10'3 (140-440); RED BLOOD COUNT 2.58 X10'6 (4.20-5.60); RED CELL DISTRIBUTION WIDTH 19.4 % (11.5-14.5); WHITE BLOOD COUNT 19.6 X10'3 (4.5-11.0)
[2022-04-02 09:56] LABS: ALBUMIN 3.1 G/DL (3.4-5.0); ANION GAP 6 (8-16); BLOOD UREA NITROGEN 32 MG/DL (7-18); BUN/CREATININE RATIO 12.7 (6.6-38.0); CHLORIDE 97 MMOL/L (99-107); CREATININE 2.52 MG/DL (0.40-0.90); GLUCOSE 130 MG/DL (70-104); MAGNESIUM 2.1 MG/DL (1.5-2.4); PHOSPHORUS 4.2 MG/DL (2.3-4.5); POTASSIUM 4.3 MMOL/L (3.5-5.1); SODIUM 133 MMOL/L (135-145); eGFR 19 ML/MIN
--- NOTE | 2022-04-02 10:30 | NUR ---
Informed Dr. Hudson that med rec needs to be addressed. stated [facility]
[2022-04-02] MEDS: piperacillin/tazo 3.375gm/50ml 50 ML IV SCH ×2 (10:54→23:10)
--- NOTE | 2022-04-02 11:24 | NUR ---
TF Consult: Pt remains intubated MAP 67 this AM w/ TF to okay start today per ignition expert/GI MD. Noted pt Propofol increased to 21.996ml/hr providing additional 581 kcals/day in addition to pt starting on CVVH per EMR; updated EN recs below. Will monitor for EN tolerance and adjustment needs as medically indicated. Recommendations: 1) Continuous TF per MD; given Propofol at 21.996mL/hr (581 kcal/day) Vital HP at 55mL/hr goal; to provide 1320mL volume/day, 1320 kcals, 115g protein, and 1104mL water. 2) If Propofol weaned; Vital HP at 65 mL/hr goal rate to provide 1560 mL total volume/day, 1560kcal, 137g protein, and 1304 mL water 3) additional water flush per physician; on CVVH 3) PALB Q /; daily scaled wts 4) Routine bowel regimen Addendum: 04/02/22 at [address] Amended: Links added.
[2022-04-02 15:03] LABS: BASOPHILS % (AUTO) 0.1 % (0-1); EOSINOPHILS % (AUTO) 0 % (0-6); HEMOGLOBIN 7.6 g/dl (12.0-16.0); LYMPHOCYTES # (AUTO) 0.3 X10'3 (1.1-4.8); LYMPHOCYTES % (AUTO) 1.5 % (21-51); MEAN CORPUSCULAR HGB CONC 31.7 g/dL (33.0-36.5); MEAN CORPUSCULAR VOLUME 94.7 FL (78-98); MEAN PLATELET VOLUME 6.8 FL (7.4-10.4); MONOCYTES # (AUTO) 0.7 X10'3 (0-0.9); MONOCYTES % (AUTO) 3.3 % (2-12); NEUTROPHILS # (AUTO) 19.4 X10'3 (1.8-7.7); NEUTROPHILS % (AUTO) 95.1 % (42-75); PLATELET COUNT 179 X10'3 (140-440); RED BLOOD COUNT 2.54 X10'6 (4.20-5.60); RED CELL DISTRIBUTION WIDTH 19.4 % (11.5-14.5); WHITE BLOOD COUNT 20.4 X10'3 (4.5-11.0)
[2022-04-02 15:12] LABS: ALBUMIN 3.1 G/DL (3.4-5.0); ANION GAP 6 (8-16); BLOOD UREA NITROGEN 28 MG/DL (7-18); BUN/CREATININE RATIO 12.7 (6.6-38.0); CHLORIDE 97 MMOL/L (99-107); GLUCOSE 133 MG/DL (70-104); MAGNESIUM 2.2 MG/DL (1.5-2.4); PHOSPHORUS 4.4 MG/DL (2.3-4.5); POTASSIUM 4.1 MMOL/L (3.5-5.1); SODIUM 133 MMOL/L (135-145); TOTAL CARBON DIOXIDE 30.5 MMOL/L (24-32); eGFR 23 ML/MIN
[2022-04-02] MEDS ORDERED: heparin 1,000 units/ml 10ml inj HE ONE ×2 (15:35)
[2022-04-02] MEDS ORDERED: mag hydrox/Alum hydrox/simeth 30ml oral suspension OGT PRN (15:52)
[2022-04-02] MEDS ORDERED: acetaminophen 325mg/10.15ml oral unit dose solution OGT PRN (15:52)
[2022-04-02] MEDS ORDERED: DEXTROSE 15 GM of carb/4 tabs (each vial/BOTTLE has 4 tablets) OGT PRN ×2 (15:52)
--- NOTE | 2022-04-02 18:13 | NUR ---
Problems reprioritized. Patient report given, questions answered & plan of care reviewed with Genet ALVAREZ.
[2022-04-02] MEDS: docusate sodium 100mg/10ml UD cup OGT SCH (20:07)
[2022-04-02] MEDS: methylPREDNISolone sod succ/PF 40mg inj. IV SCH (20:07)
[2022-04-02] MEDS: insulin glargine (Lantus) pen - multi-dose SQ SCH (21:00)
[2022-04-02 21:01] LABS: BASOPHILS % (AUTO) 0 % (0-1); EOSINOPHILS % (AUTO) 0 % (0-6); HEMATOCRIT 23.2 % (35.0-45.0); HEMOGLOBIN 7.3 g/dl (12.0-16.0); LYMPHOCYTES # (AUTO) 0.2 X10'3 (1.1-4.8); LYMPHOCYTES % (AUTO) 1.2 % (21-51); MEAN CORPUSCULAR HEMOGLOBIN 30.2 PG (27.0-31.0); MEAN CORPUSCULAR HGB CONC 31.6 g/dL (33.0-36.5); MEAN CORPUSCULAR VOLUME 95.4 FL (78-98); MEAN PLATELET VOLUME 6.6 FL (7.4-10.4); MONOCYTES # (AUTO) 0.5 X10'3 (0-0.9); MONOCYTES % (AUTO) 3.4 % (2-12); NEUTROPHILS # (AUTO) 15.3 X10'3 (1.8-7.7); NEUTROPHILS % (AUTO) 95.4 % (42-75); PLATELET COUNT 165 X10'3 (140-440); RED BLOOD COUNT 2.43 X10'6 (4.20-5.60); RED CELL DISTRIBUTION WIDTH 19.9 % (11.5-14.5)
[2022-04-02 21:15] LABS: ALBUMIN 2.9 G/DL (3.4-5.0); ANION GAP 7 (8-16); BLOOD UREA NITROGEN 25 MG/DL (7-18); BUN/CREATININE RATIO 11.8 (6.6-38.0); CHLORIDE 98 MMOL/L (99-107); CREATININE 2.12 MG/DL (0.40-0.90); GLUCOSE 161 MG/DL (70-104); PHOSPHORUS 4.1 MG/DL (2.3-4.5); POTASSIUM 4.1 MMOL/L (3.5-5.1); SODIUM 133 MMOL/L (135-145); TOTAL CARBON DIOXIDE 28.2 MMOL/L (24-32); eGFR 24 ML/MIN
[2022-04-03] VITALS (35 sets, daily range): BP systolic 90–119; BP diastolic 38–66
[2022-04-03] MEDS: pantoprazole 40MG/NS 100ML BAG 100 ML IV SCH ×5 (00:49→19:57)
[2022-04-03] MEDS: bicarb dialysis sol 2K+/3 Ca2+ 5,000 ML HE SCH ×15 (01:08→22:42)
[2022-04-03] MEDS: methylPREDNISolone sod succ/PF 40mg inj. IV SCH ×4 (02:05→19:55)
[2022-04-03] MEDS: propofol 1000mg/100ml bottle 100 ML IV SCH ×6 (02:06→19:57)
[2022-04-03] MEDS: mineral oil/petrolatum ophthal oint EACHEYE SCH ×4 (02:06→19:57)
[2022-04-03 02:34] LABS: BASOPHILS # (AUTO) 0.1 X10'3 (0-0.2); BASOPHILS % (AUTO) 0.3 % (0-1); EOSINOPHILS % (AUTO) 0 % (0-6); HEMATOCRIT 23.9 % (35.0-45.0); HEMOGLOBIN 7.3 g/dl (12.0-16.0); LYMPHOCYTES # (AUTO) 0.3 X10'3 (1.1-4.8); LYMPHOCYTES % (AUTO) 1.9 % (21-51); MEAN CORPUSCULAR HEMOGLOBIN 29.3 PG (27.0-31.0); MEAN CORPUSCULAR HGB CONC 30.7 g/dL (33.0-36.5); MEAN CORPUSCULAR VOLUME 95.7 FL (78-98); MEAN PLATELET VOLUME 6.5 FL (7.4-10.4); MONOCYTES # (AUTO) 0.5 X10'3 (0-0.9); NEUTROPHILS # (AUTO) 16.3 X10'3 (1.8-7.7); NEUTROPHILS % (AUTO) 94.8 % (42-75); PLATELET COUNT 179 X10'3 (140-440); RED BLOOD COUNT 2.49 X10'6 (4.20-5.60); RED CELL DISTRIBUTION WIDTH 18.9 % (11.5-14.5); WHITE BLOOD COUNT 17.2 X10'3 (4.5-11.0)
[2022-04-03] MEDS: ipratropium/albuterol 3ml nebule NEB SCH ×6 (03:00→22:49)
[2022-04-03 03:01] LABS: ANION GAP 9 (8-16); BLOOD UREA NITROGEN 22 MG/DL (7-18); BUN/CREATININE RATIO 12.3 (6.6-38.0); CHLORIDE 98 MMOL/L (99-107); CREATININE 1.79 MG/DL (0.40-0.90); GLUCOSE 194 MG/DL (70-104); MAGNESIUM 2.1 MG/DL (1.5-2.4); PHOSPHORUS 3.6 MG/DL (2.3-4.5); POTASSIUM 3.8 MMOL/L (3.5-5.1); PREALBUMIN 15.5 MG/DL (19-36); SODIUM 133 MMOL/L (135-145); TOTAL CARBON DIOXIDE 25.9 MMOL/L (24-32); VANCOMYCIN,RANDOM 8.9 UG/ML; eGFR 29 ML/MIN
[2022-04-03 03:18] LABS: ABG BASE EXCESS -4.3 mmol/L (-2.0-2.0); ABG HCO3 22.2 mmol/L (22.0-26.0); ABG OXYGEN SATURATION 94.3 % (94-97); ABG PCO2 (T) 47.8 mmHg (32.0-45.0); ABG PO2 (T) 76.2 mmHg (75.0-100.0); ALLEN'S TEST POSITIVE; FCOHb 0.7 % (0.0-3.9); FMetHb 0.4 % (0.0-1.5); FO2Hb 93.3 % (94-97); PATIENT TEMPERATURE 36.8; PEEP 5 cm H2O; RESPIRATORY RATE 20 b/min; TIDAL VOLUME 400 mL; TOTAL HEMOGLOBIN 8.3 G/dl (12.0-16.0)
[2022-04-03] MEDS: NORepinephrine 8mg/ 250ml NS 250 ML IV SCH ×2 (03:57→13:33)
[2022-04-03] MEDS: VANCOMYCIN LEVEL IV SCH (03:59)
--- NOTE | 2022-04-03 06:48 | NUR ---
Patient in room CICU 2011. I have received report from Genet ALVAREZ and had the opportunity to ask questions and assume patient care.
[2022-04-03] MEDS: fentaNYL 50mcg/ml PF inj. 2,500 MCG in normal saline 250ml IV soln 200 ML IV PRN (07:11)
[2022-04-03] MEDS: docusate sodium 100mg/10ml UD cup OGT SCH ×2 (07:15→19:55)
[2022-04-03] MEDS: heparin, porcine 5000 units/ml vial SQ SCH ×2 (07:15→19:56)
[2022-04-03] MEDS ORDERED: vancomycin/NS 1 GM ADD-VANTAGE 250 ML IV ONE (07:45)
[2022-04-03 09:10] LABS: BASOPHILS % (AUTO) 0.2 % (0-1); EOSINOPHILS % (AUTO) 0 % (0-6); HEMATOCRIT 23.3 % (35.0-45.0); HEMOGLOBIN 7.1 g/dl (12.0-16.0); LYMPHOCYTES # (AUTO) 0.3 X10'3 (1.1-4.8); LYMPHOCYTES % (AUTO) 1.8 % (21-51); MEAN CORPUSCULAR HEMOGLOBIN 29.4 PG (27.0-31.0); MEAN CORPUSCULAR HGB CONC 30.7 g/dL (33.0-36.5); MEAN CORPUSCULAR VOLUME 95.7 FL (78-98); MEAN PLATELET VOLUME 6.7 FL (7.4-10.4); MONOCYTES # (AUTO) 0.4 X10'3 (0-0.9); MONOCYTES % (AUTO) 2.7 % (2-12); NEUTROPHILS % (AUTO) 95.3 % (42-75); PLATELET COUNT 157 X10'3 (140-440); RED BLOOD COUNT 2.43 X10'6 (4.20-5.60); RED CELL DISTRIBUTION WIDTH 19.5 % (11.5-14.5); WHITE BLOOD COUNT 13.7 X10'3 (4.5-11.0)
[2022-04-03 09:11] LABS: ANION GAP 8 (8-16); BLOOD UREA NITROGEN 21 MG/DL (7-18); BUN/CREATININE RATIO 14.3 (6.6-38.0); CHLORIDE 100 MMOL/L (99-107); CREATININE 1.47 MG/DL (0.40-0.90); GLUCOSE 205 MG/DL (70-104); POTASSIUM 3.4 MMOL/L (3.5-5.1); SODIUM 135 MMOL/L (135-145); eGFR 36 ML/MIN
[2022-04-03] MEDS: potassium Cl 40MEQ/270ML bag 270 ML IV PRN ×2 (10:01→23:06)
--- NOTE | 2022-04-03 10:30 | NUR ---
Informed Dr. Hudson in rounds that med rec needs to be addressed. stated he would reconcile meds.
[2022-04-03] MEDS: piperacillin/tazo 3.375gm/50ml 50 ML IV SCH ×2 (10:35→23:05)
[2022-04-03] MEDS: insulin regular, human U-100 3ml vial - multi-dose SQ SCH ×2 (14:55→21:10)
[2022-04-03 15:10] LABS: ANION GAP 8 (8-16); BLOOD UREA NITROGEN 18 MG/DL (7-18); BUN/CREATININE RATIO 13.6 (6.6-38.0); CHLORIDE 101 MMOL/L (99-107); CREATININE 1.32 MG/DL (0.40-0.90); GLUCOSE 203 MG/DL (70-104); MAGNESIUM 2.1 MG/DL (1.5-2.4); POTASSIUM 3.8 MMOL/L (3.5-5.1); SODIUM 136 MMOL/L (135-145); TOTAL CARBON DIOXIDE 27.2 MMOL/L (24-32); eGFR 41 ML/MIN
[2022-04-03 15:32] LABS: BASOPHILS % (AUTO) 0.1 % (0-1); EOSINOPHILS % (AUTO) 0 % (0-6); HEMATOCRIT 24.2 % (35.0-45.0); HEMOGLOBIN 7.4 g/dl (12.0-16.0); LYMPHOCYTES # (AUTO) 0.2 X10'3 (1.1-4.8); LYMPHOCYTES % (AUTO) 1.7 % (21-51); MEAN CORPUSCULAR HEMOGLOBIN 29.6 PG (27.0-31.0); MEAN CORPUSCULAR HGB CONC 30.8 g/dL (33.0-36.5); MEAN CORPUSCULAR VOLUME 96.3 FL (78-98); MEAN PLATELET VOLUME 6.6 FL (7.4-10.4); MONOCYTES # (AUTO) 0.4 X10'3 (0-0.9); MONOCYTES % (AUTO) 3.4 % (2-12); NEUTROPHILS # (AUTO) 11.8 X10'3 (1.8-7.7); NEUTROPHILS % (AUTO) 94.8 % (42-75); PLATELET COUNT 147 X10'3 (140-440); RED BLOOD COUNT 2.51 X10'6 (4.20-5.60); RED CELL DISTRIBUTION WIDTH 19.3 % (11.5-14.5); WHITE BLOOD COUNT 12.4 X10'3 (4.5-11.0)
--- NOTE | 2022-04-03 18:09 | NUR ---
Problems reprioritized. Patient report given, questions answered & plan of care reviewed with Genet ALVAREZ.
[2022-04-03] MEDS ORDERED: amiodarone 150mg/dext, iso-os 100 ML IV ONE ×2 (20:30→20:39)
--- NOTE | 2022-04-03 20:30 | NUR ---
Call in to Dr. Hudson to report pt's conversion to AF w/RVR. Orders noted
[2022-04-03] MEDS: amiodarone/D5 360MG/200ML BAG 200 ML IV SCH (20:58)
[2022-04-03] MEDS: insulin glargine (Lantus) pen - multi-dose SQ SCH (21:12)
[2022-04-03 21:14] LABS: BASOPHILS % (AUTO) 0.3 % (0-1); EOSINOPHILS % (AUTO) 0 % (0-6); HEMATOCRIT 23.4 % (35.0-45.0); HEMOGLOBIN 7.2 g/dl (12.0-16.0); LYMPHOCYTES # (AUTO) 0.2 X10'3 (1.1-4.8); MEAN CORPUSCULAR HEMOGLOBIN 29.7 PG (27.0-31.0); MEAN CORPUSCULAR VOLUME 95.9 FL (78-98); MEAN PLATELET VOLUME 6.5 FL (7.4-10.4); MONOCYTES # (AUTO) 0.3 X10'3 (0-0.9); MONOCYTES % (AUTO) 3.7 % (2-12); NEUTROPHILS # (AUTO) 8.6 X10'3 (1.8-7.7); PLATELET COUNT 106 X10'3 (140-440); RED BLOOD COUNT 2.44 X10'6 (4.20-5.60); RED CELL DISTRIBUTION WIDTH 19.6 % (11.5-14.5); WHITE BLOOD COUNT 9.2 X10'3 (4.5-11.0)
[2022-04-03 21:25] LABS: ALBUMIN 2.9 G/DL (3.4-5.0); ANION GAP 10 (8-16); BLOOD UREA NITROGEN 17 MG/DL (7-18); BUN/CREATININE RATIO 14.7 (6.6-38.0); CHLORIDE 98 MMOL/L (99-107); CREATININE 1.16 MG/DL (0.40-0.90); GLUCOSE 296 MG/DL (70-104); MAGNESIUM 1.9 MG/DL (1.5-2.4); PHOSPHORUS 2.8 MG/DL (2.3-4.5); POTASSIUM 3.3 MMOL/L (3.5-5.1); SODIUM 134 MMOL/L (135-145); TOTAL CARBON DIOXIDE 26.3 MMOL/L (24-32); eGFR 47 ML/MIN
[2022-04-03 21:31] LABS: ANISOCYTOSIS 2+; PLATELET ESTIMATE DECREASED
[2022-04-03 21:34] LABS: POLYCHROMASIA FEW; STOMATOCYTES FEW; TARGET CELLS FEW; TEAR DROP CELLS FEW
[2022-04-04] VITALS (35 sets, daily range): BP systolic 96–125; BP diastolic 41–61
[2022-04-04] MEDS: propofol 1000mg/100ml bottle 100 ML IV SCH ×7 (00:18→22:35)
[2022-04-04] MEDS: pantoprazole 40MG/NS 100ML BAG 100 ML IV SCH ×5 (00:19→20:27)
[2022-04-04] MEDS: bicarb dialysis sol 2K+/3 Ca2+ 5,000 ML HE SCH ×15 (02:17→23:49)
[2022-04-04] MEDS: methylPREDNISolone sod succ/PF 40mg inj. IV SCH ×4 (02:17→20:25)
[2022-04-04] MEDS: mineral oil/petrolatum ophthal oint EACHEYE SCH ×4 (02:17→20:51)
[2022-04-04] MEDS: NORepinephrine 8mg/ 250ml NS 250 ML IV SCH ×3 (02:19→15:28)
[2022-04-04] MEDS: insulin regular, human U-100 3ml vial - multi-dose SQ SCH ×4 (02:34→20:30)
[2022-04-04] MEDS: VANCOMYCIN LEVEL IV SCH (02:39)
[2022-04-04] MEDS: ipratropium/albuterol 3ml nebule NEB SCH ×6 (02:40→22:58)
[2022-04-04 02:57] LABS: ABG BASE EXCESS 0.5 mmol/L (-2.0-2.0); ABG HCO3 28.5 mmol/L (22.0-26.0); ABG OXYGEN SATURATION 93.1 % (94-97); ABG PCO2 (T) 64.6 mmHg (32.0-45.0); ABG PO2 (T) 66.9 mmHg (75.0-100.0); ALLEN'S TEST POSITIVE; FCOHb 0.6 % (0.0-3.9); FMetHb 0.4 % (0.0-1.5); FO2Hb 92.2 % (94-97); PATIENT TEMPERATURE 36.2; PEEP 5 cm H2O; RESPIRATORY RATE 20 b/min; TIDAL VOLUME 400 mL; TOTAL HEMOGLOBIN 8.7 G/dl (12.0-16.0)
[2022-04-04 02:59] LABS: BASOPHILS % (AUTO) 0.2 % (0-1); EOSINOPHILS % (AUTO) 0 % (0-6); HEMATOCRIT 23.9 % (35.0-45.0); HEMOGLOBIN 7.5 g/dl (12.0-16.0); LYMPHOCYTES # (AUTO) 0.2 X10'3 (1.1-4.8); LYMPHOCYTES % (AUTO) 2.1 % (21-51); MEAN CORPUSCULAR HEMOGLOBIN 29.7 PG (27.0-31.0); MEAN CORPUSCULAR HGB CONC 31.2 g/dL (33.0-36.5); MEAN CORPUSCULAR VOLUME 95.2 FL (78-98); MEAN PLATELET VOLUME 6.5 FL (7.4-10.4); MONOCYTES # (AUTO) 0.5 X10'3 (0-0.9); MONOCYTES % (AUTO) 4.4 % (2-12); NEUTROPHILS # (AUTO) 9.7 X10'3 (1.8-7.7); NEUTROPHILS % (AUTO) 93.3 % (42-75); PLATELET COUNT 98 X10'3 (140-440); RED BLOOD COUNT 2.51 X10'6 (4.20-5.60); RED CELL DISTRIBUTION WIDTH 19.3 % (11.5-14.5); WHITE BLOOD COUNT 10.4 X10'3 (4.5-11.0)
--- NOTE | 2022-04-04 03:00 | NUR ---
CRRT filter clotted. lines disconnected and flushed. Call in to on-call dialysis nurse to notify.
[2022-04-04] MEDS: amiodarone/D5 360MG/200ML BAG 200 ML IV SCH ×4 (03:04→20:51)
[2022-04-04 03:23] LABS: ALANINE AMINOTRANSFERASE 112 U/L (12-78); ALBUMIN 3.1 G/DL (3.4-5.0); ALKALINE PHOSPHATASE 143 IU/L (46-116); ANION GAP 9 (8-16); ASPARTATE AMINO TRANSFERASE 42 U/L (10-37); BILIRUBIN,TOTAL 0.5 MG/DL (0.1-1.0); BLOOD UREA NITROGEN 16 MG/DL (7-18); CHLORIDE 101 MMOL/L (99-107); CREATININE 1.07 MG/DL (0.40-0.90); GLUCOSE 176 MG/DL (70-104); PHOSPHORUS 2.4 MG/DL (2.3-4.5); POTASSIUM 3.4 MMOL/L (3.5-5.1); SODIUM 137 MMOL/L (135-145); TOTAL CARBON DIOXIDE 26.6 MMOL/L (24-32); TOTAL PROTEIN 6.3 G/DL (6.4-8.2); VANCOMYCIN,RANDOM 7.5 UG/ML; eGFR 52 ML/MIN
[2022-04-04] MEDS: fentaNYL 50mcg/ml PF inj. 2,500 MCG in normal saline 250ml IV soln 200 ML IV PRN ×2 (04:06→08:49)
[2022-04-04] MEDS: potassium Cl 40MEQ/270ML bag 270 ML IV PRN ×2 (04:24→21:40)
--- NOTE | 2022-04-04 06:51 | NUR ---
Patient in room CICU 2011. I have received report from Genet ALVAREZ and had the opportunity to ask questions and assume patient care.
[2022-04-04] MEDS: docusate sodium 100mg/10ml UD cup OGT SCH ×2 (07:17→20:25)
[2022-04-04] MEDS: heparin, porcine 5000 units/ml vial SQ SCH (07:18)
[2022-04-04 08:57] LABS: BASOPHILS % (AUTO) 0 % (0-1); EOSINOPHILS % (AUTO) 0 % (0-6); HEMATOCRIT 22.6 % (35.0-45.0); HEMOGLOBIN 7.2 g/dl (12.0-16.0); LYMPHOCYTES # (AUTO) 0.2 X10'3 (1.1-4.8); LYMPHOCYTES % (AUTO) 1.8 % (21-51); MEAN CORPUSCULAR HEMOGLOBIN 30.1 PG (27.0-31.0); MEAN CORPUSCULAR HGB CONC 31.8 g/dL (33.0-36.5); MEAN CORPUSCULAR VOLUME 94.7 FL (78-98); MEAN PLATELET VOLUME 6.3 FL (7.4-10.4); MONOCYTES # (AUTO) 0.4 X10'3 (0-0.9); MONOCYTES % (AUTO) 4.3 % (2-12); NEUTROPHILS % (AUTO) 93.9 % (42-75); PLATELET COUNT 95 X10'3 (140-440); RED BLOOD COUNT 2.38 X10'6 (4.20-5.60); RED CELL DISTRIBUTION WIDTH 18.6 % (11.5-14.5); WHITE BLOOD COUNT 8.5 X10'3 (4.5-11.0)
[2022-04-04 09:05] LABS: ANION GAP 6 (8-16); BLOOD UREA NITROGEN 17 MG/DL (7-18); BUN/CREATININE RATIO 15.5 (6.6-38.0); CHLORIDE 102 MMOL/L (99-107); GLUCOSE 197 MG/DL (70-104); MAGNESIUM 1.9 MG/DL (1.5-2.4); POTASSIUM 3.7 MMOL/L (3.5-5.1); SODIUM 136 MMOL/L (135-145); eGFR 50 ML/MIN
--- NOTE | 2022-04-04 09:10 | NUR ---
Informed Dr. Hudson of plts 98, heparin held. ordered to DC heparin. MD reviewed ABG, informed MD that pt went into afib with RVR last night, amio drip started. Pt now sinus tach in 140s. No other new orders at this time.
--- NOTE | 2022-04-04 09:25 | NUR ---
Dr. Rodrigez informed of ABG results, K and zarina georges MD ordered replacement per CVVH protocol.
[2022-04-04] MEDS ORDERED: Potassium Cl 40 MEQ in normal saline IV soln 270 ML IV ONE (09:35)
[2022-04-04] MEDS: sodium phosphate inj. 30 MMOL in normal saline 250ml IV soln 250 ML IV PRN (09:55)
[2022-04-04] MEDS: piperacillin/tazo 3.375gm/50ml 50 ML IV SCH ×2 (10:26→22:35)
[2022-04-04] MEDS: EPOETIN ALFA-EPBX 20,000 UNIT/ML 1 ML MDV SQ SCH (11:50)
--- NOTE | 2022-04-04 11:52 | NUR ---
Reassessment: Pt remains intubated and tolerating TF at goal rate with GRV WNL. Propofol visualized at bedside to be running at 21.996 mL/hr providing 581 kcal/day, no changes to TF warranted at this time. LBM 03/31, receiving routine bowel care and with additional PRN bowel care available. Will continue to follow closely and make recommendations as appropriate. Recommendations: 1) Continuous TF per MD; given Propofol at 21.996 mL/hr (581 kcal/day) Vital HP at 55 mL/hr goal; to provide 1320 mL volume/day, 1320 kcal, 115 g protein, and 1104 mL water. 2) If Propofol weaned; Vital HP at 65 mL/hr goal rate to provide 1560 mL total volume/day, 1560 kcal, 137 g protein, and 1304 mL water 3) Additional water flush per physician; on CVV 4) PALB q Sunday/ 5) Daily scaled wts 6) Routine bowel regimen Addendum: 04/04/22 at [address] Amended: Links added.
[2022-04-04 11:57] LABS: % IRON SATURATION 4 % (11-46); IRON 17 UG/DL (49-151); TOTAL IRON BINDING CAPACITY 381 UG/DL (259-388)
[2022-04-04 12:20] LABS: FERRITIN 80 NG/ML (8-252)
[2022-04-04] MEDS ORDERED: digoxin 250mcg/ml 2ml ampule IV ONE ×2 (14:15→20:15)
[2022-04-04 15:01] LABS: BASOPHILS % (AUTO) 0.2 % (0-1); EOSINOPHILS % (AUTO) 0 % (0-6); HEMATOCRIT 22.9 % (35.0-45.0); HEMOGLOBIN 7.1 g/dl (12.0-16.0); LYMPHOCYTES # (AUTO) 0.1 X10'3 (1.1-4.8); LYMPHOCYTES % (AUTO) 1.5 % (21-51); MEAN CORPUSCULAR HEMOGLOBIN 29.5 PG (27.0-31.0); MEAN CORPUSCULAR HGB CONC 30.9 g/dL (33.0-36.5); MEAN CORPUSCULAR VOLUME 95.5 FL (78-98); MEAN PLATELET VOLUME 6.5 FL (7.4-10.4); MONOCYTES # (AUTO) 0.3 X10'3 (0-0.9); MONOCYTES % (AUTO) 3.1 % (2-12); NEUTROPHILS # (AUTO) 8.2 X10'3 (1.8-7.7); NEUTROPHILS % (AUTO) 95.2 % (42-75); PLATELET COUNT 97 X10'3 (140-440); WHITE BLOOD COUNT 8.6 X10'3 (4.5-11.0)
[2022-04-04 15:11] LABS: ANION GAP 6 (8-16); BLOOD UREA NITROGEN 16 MG/DL (7-18); BUN/CREATININE RATIO 16.5 (6.6-38.0); CHLORIDE 102 MMOL/L (99-107); CREATININE 0.97 MG/DL (0.40-0.90); GLUCOSE 206 MG/DL (70-104); MAGNESIUM 1.9 MG/DL (1.5-2.4); PHOSPHORUS 3.8 MG/DL (2.3-4.5); POTASSIUM 3.8 MMOL/L (3.5-5.1); SODIUM 136 MMOL/L (135-145); TOTAL CARBON DIOXIDE 28.2 MMOL/L (24-32); eGFR 58 ML/MIN
[2022-04-04] MEDS: metoprolol tartrate 1mg/ml inj IV SCH ×3 (15:15→23:48)
--- NOTE | 2022-04-04 18:25 | NUR ---
Problems reprioritized. Patient report given, questions answered & plan of care reviewed with Genet ALVAREZ.
[2022-04-04 20:09] LABS: ALBUMIN 2.9 G/DL (3.4-5.0); ANION GAP 7 (8-16); BLOOD UREA NITROGEN 15 MG/DL (7-18); BUN/CREATININE RATIO 16.3 (6.6-38.0); CHLORIDE 102 MMOL/L (99-107); CREATININE 0.92 MG/DL (0.40-0.90); GLUCOSE 203 MG/DL (70-104); PHOSPHORUS 2.2 MG/DL (2.3-4.5); POTASSIUM 3.5 MMOL/L (3.5-5.1); SODIUM 136 MMOL/L (135-145); TOTAL CARBON DIOXIDE 26.9 MMOL/L (24-32); eGFR 62 ML/MIN
[2022-04-04] MEDS: insulin glargine (Lantus) pen - multi-dose SQ SCH (20:31)
[2022-04-05] VITALS (39 sets, daily range): BP systolic 93–133; BP diastolic 40–69
--- NOTE | 2022-04-05 00:25 | NUR ---
Midnight dose of lopressor given as ordered. HR 130s. at 0015, noted HR now in the 80s, A-Flutter with 3:1, 2:1 ratio.
[2022-04-05] MEDS: pantoprazole 40MG/NS 100ML BAG 100 ML IV SCH ×3 (01:07→20:15)
[2022-04-05] MEDS: propofol 1000mg/100ml bottle 100 ML IV SCH ×5 (01:09→18:10)
[2022-04-05] MEDS ORDERED: digoxin 250mcg/ml 2ml ampule IV ONE (02:15)
[2022-04-05] MEDS: methylPREDNISolone sod succ/PF 40mg inj. IV SCH ×4 (02:27→20:05)
[2022-04-05] MEDS: insulin regular, human U-100 3ml vial - multi-dose SQ SCH ×4 (02:29→20:59)
[2022-04-05] MEDS: mineral oil/petrolatum ophthal oint EACHEYE SCH ×4 (02:38→20:13)
[2022-04-05] MEDS: bicarb dialysis sol 2K+/3 Ca2+ 5,000 ML HE SCH ×11 (02:39→14:11)
[2022-04-05 03:00] LABS: BASOPHILS % (AUTO) 0.1 % (0-1); EOSINOPHILS % (AUTO) 0 % (0-6); HEMATOCRIT 22.3 % (35.0-45.0); LYMPHOCYTES # (AUTO) 0.2 X10'3 (1.1-4.8); LYMPHOCYTES % (AUTO) 2.9 % (21-51); MEAN CORPUSCULAR HEMOGLOBIN 28.9 PG (27.0-31.0); MEAN CORPUSCULAR HGB CONC 30.5 g/dL (33.0-36.5); MEAN CORPUSCULAR VOLUME 94.9 FL (78-98); MEAN PLATELET VOLUME 6.8 FL (7.4-10.4); MONOCYTES # (AUTO) 0.3 X10'3 (0-0.9); MONOCYTES % (AUTO) 3.4 % (2-12); NEUTROPHILS # (AUTO) 7.2 X10'3 (1.8-7.7); NEUTROPHILS % (AUTO) 93.6 % (42-75); PLATELET COUNT 90 X10'3 (140-440); RED BLOOD COUNT 2.34 X10'6 (4.20-5.60); RED CELL DISTRIBUTION WIDTH 18.8 % (11.5-14.5); WHITE BLOOD COUNT 7.7 X10'3 (4.5-11.0)
[2022-04-05] MEDS: ipratropium/albuterol 3ml nebule NEB SCH ×6 (03:02→22:36)
[2022-04-05 03:04] LABS: HEMOGLOBIN 6.8 g/dl (12.0-16.0)
[2022-04-05 03:15] LABS: ALANINE AMINOTRANSFERASE 80 U/L (12-78); ALBUMIN 2.7 G/DL (3.4-5.0); ALBUMIN/GLOBULIN RATIO 0.9 (1.1-1.5); ALKALINE PHOSPHATASE 117 IU/L (46-116); ANION GAP 6 (8-16); ASPARTATE AMINO TRANSFERASE 27 U/L (10-37); BILIRUBIN,TOTAL 0.4 MG/DL (0.1-1.0); BLOOD UREA NITROGEN 14 MG/DL (7-18); BUN/CREATININE RATIO 17.3 (6.6-38.0); CALCIUM 8.4 MG/DL (8.5-10.1); CHLORIDE 104 MMOL/L (99-107); CREATININE 0.81 MG/DL (0.40-0.90); GLUCOSE 134 MG/DL (70-104); MAGNESIUM 1.6 MG/DL (1.5-2.4); PHOSPHORUS 1.7 MG/DL (2.3-4.5); POTASSIUM 3.6 MMOL/L (3.5-5.1); SODIUM 137 MMOL/L (135-145); TOTAL CARBON DIOXIDE 27.1 MMOL/L (24-32); TOTAL PROTEIN 5.6 G/DL (6.4-8.2); eGFR 72 ML/MIN
[2022-04-05] MEDS: amiodarone/D5 360MG/200ML BAG 200 ML IV SCH ×3 (03:21→15:26)
[2022-04-05] MEDS: potassium Cl 40MEQ/270ML bag 270 ML IV PRN (03:48)
[2022-04-05 03:51] LABS: ANISOCYTOSIS 2+; PLATELET ESTIMATE DECREASED; POLYCHROMASIA FEW
[2022-04-05 03:52] LABS: STOMATOCYTES 1+; TEAR DROP CELLS FEW
[2022-04-05] MEDS: metoprolol tartrate 1mg/ml inj IV SCH ×5 (04:06→20:00)
[2022-04-05 05:15] LABS: ABG BASE EXCESS 0.6 mmol/L (-2.0-2.0); ABG HCO3 26.6 mmol/L (22.0-26.0); ABG OXYGEN SATURATION 90.2 % (94-97); ABG PCO2 (T) 50.4 mmHg (32.0-45.0); ABG PO2 (T) 57.3 mmHg (75.0-100.0); ALLEN'S TEST Yes; FCOHb 0.6 % (0.0-3.9); FMetHb 0.2 % (0.0-1.5); FO2Hb 89.5 % (94-97); PEEP 5 cm H2O; RESPIRATORY RATE 20 b/min; TIDAL VOLUME 400 mL; TOTAL HEMOGLOBIN 7.9 G/dl (12.0-16.0)
--- NOTE | 2022-04-05 06:48 | NUR ---
linked med note 0521 ammio reassessment not done previous shift 0509 propofol reassessment not done previous shift 0600 crrt flow sheet not done previous shift 0600 vital signs not done by previous shift
--- NOTE | 2022-04-05 06:50 | NUR ---
Patient in room CICU 2011. I have received report from Genet ALVAREZ and had the opportunity to ask questions and assume patient care.
[2022-04-05] MEDS: docusate sodium 100mg/10ml UD cup OGT SCH ×2 (07:52→20:05)
[2022-04-05 08:47] LABS: BASOPHILS % (AUTO) 0.2 % (0-1); EOSINOPHILS % (AUTO) 0 % (0-6); HEMATOCRIT 24.8 % (35.0-45.0); HEMOGLOBIN 7.6 g/dl (12.0-16.0); LYMPHOCYTES # (AUTO) 0.2 X10'3 (1.1-4.8); MEAN CORPUSCULAR HEMOGLOBIN 29.1 PG (27.0-31.0); MEAN CORPUSCULAR HGB CONC 30.8 g/dL (33.0-36.5); MEAN CORPUSCULAR VOLUME 94.7 FL (78-98); MONOCYTES # (AUTO) 0.1 X10'3 (0-0.9); MONOCYTES % (AUTO) 1.8 % (2-12); NEUTROPHILS # (AUTO) 7.9 X10'3 (1.8-7.7); PLATELET COUNT 91 X10'3 (140-440); RED BLOOD COUNT 2.62 X10'6 (4.20-5.60); RED CELL DISTRIBUTION WIDTH 17.8 % (11.5-14.5); WHITE BLOOD COUNT 8.3 X10'3 (4.5-11.0)
[2022-04-05 09:10] LABS: ALBUMIN 2.8 G/DL (3.4-5.0); ANION GAP 7 (8-16); BLOOD UREA NITROGEN 14 MG/DL (7-18); BUN/CREATININE RATIO 17.7 (6.6-38.0); CHLORIDE 102 MMOL/L (99-107); CREATININE 0.79 MG/DL (0.40-0.90); GLUCOSE 192 MG/DL (70-104); MAGNESIUM 1.8 MG/DL (1.5-2.4); PHOSPHORUS 1.7 MG/DL (2.3-4.5); POTASSIUM 3.9 MMOL/L (3.5-5.1); SODIUM 136 MMOL/L (135-145); eGFR 74 ML/MIN
[2022-04-05] MEDS: NORepinephrine 8mg/ 250ml NS 250 ML IV SCH ×2 (09:15→20:13)
[2022-04-05 09:52] LABS: ABG BASE EXCESS 2.8 mmol/L (-2.0-2.0); ABG HCO3 27.9 mmol/L (22.0-26.0); ABG OXYGEN SATURATION 96.1 % (94-97); ABG PCO2 (T) 43.9 mmHg (32.0-45.0); ABG PO2 (T) 76.2 mmHg (75.0-100.0); FCOHb 0.3 % (0.0-3.9); FMetHb 0.1 % (0.0-1.5); FO2Hb 95.7 % (94-97); PATIENT TEMPERATURE 36.2; PEEP 5 cm H2O; RESPIRATORY RATE 20 b/min; TIDAL VOLUME 400 mL; TOTAL HEMOGLOBIN 9.4 G/dl (12.0-16.0)
--- NOTE | 2022-04-05 11:01 | NUR ---
F/u: Propofol visualized at bedside to have increased to 29.32 mL/hr providing 774 kcal/day. Recommend decreasing TF rate to 47 mL/hr as to not overfeed on the vent, d/w RN and updated EMR. Pt still with no BM however per RN GRV is improving and pt with bowel sounds so hopeful for a BM soon. Pt continues receiving routine Colace BID. Will continue to follow closely. Recommendations: 1) Continuous TF per MD; given Propofol at 29.32 mL/hr (774 kcal/day) Vital HP at 47 mL/hr goal; to provide 1128 mL volume/day, 1128 kcal, 98 g protein, and 943 mL water. 2) If Propofol weaned; Vital HP at 65 mL/hr goal rate to provide 1560 mL total volume/day, 1560 kcal, 137 g protein, and 1304 mL water 3) Additional water flush per physician; on [facility] 4) PALB q Sunday/ 5) Daily scaled wts 6) Routine bowel regimen Addendum: 04/05/22 at [address] Amended: Links added.
[2022-04-05] MEDS: sodium phosphate inj. 30 MMOL in normal saline 250ml IV soln 250 ML IV PRN (11:04)
[2022-04-05] MEDS: piperacillin/tazo 3.375gm/50ml 50 ML IV SCH ×2 (11:04→22:13)
[2022-04-05] MEDS: fentaNYL 50mcg/ml PF inj. 2,500 MCG in normal saline 250ml IV soln 200 ML IV PRN (11:48)
--- NOTE | 2022-04-05 12:47 | NUR ---
1100 lopressor held map less than 65, as per protocol
[2022-04-05] MEDS: Duosol 4K/3 Ca (w/calcium) 5,000 ML HE SCH ×7 (14:15→21:19)
[2022-04-05 14:47] LABS: BASOPHILS % (AUTO) 0 % (0-1); EOSINOPHILS % (AUTO) 0 % (0-6); HEMATOCRIT 26.5 % (35.0-45.0); HEMOGLOBIN 8.5 g/dl (12.0-16.0); LYMPHOCYTES # (AUTO) 0.3 X10'3 (1.1-4.8); MEAN CORPUSCULAR HEMOGLOBIN 29.8 PG (27.0-31.0); MEAN CORPUSCULAR HGB CONC 31.9 g/dL (33.0-36.5); MEAN CORPUSCULAR VOLUME 93.5 FL (78-98); MEAN PLATELET VOLUME 6.9 FL (7.4-10.4); MONOCYTES # (AUTO) 0.3 X10'3 (0-0.9); MONOCYTES % (AUTO) 3.1 % (2-12); NEUTROPHILS # (AUTO) 8.1 X10'3 (1.8-7.7); NEUTROPHILS % (AUTO) 93.9 % (42-75); PLATELET COUNT 92 X10'3 (140-440); RED BLOOD COUNT 2.83 X10'6 (4.20-5.60); RED CELL DISTRIBUTION WIDTH 17.1 % (11.5-14.5); WHITE BLOOD COUNT 8.7 X10'3 (4.5-11.0)
[2022-04-05 14:56] LABS: ALBUMIN 2.9 G/DL (3.4-5.0); ANION GAP 5 (8-16); BLOOD UREA NITROGEN 13 MG/DL (7-18); BUN/CREATININE RATIO 16.9 (6.6-38.0); CHLORIDE 101 MMOL/L (99-107); CREATININE 0.77 MG/DL (0.40-0.90); GLUCOSE 177 MG/DL (70-104); MAGNESIUM 1.7 MG/DL (1.5-2.4); POTASSIUM 3.6 MMOL/L (3.5-5.1); SODIUM 135 MMOL/L (135-145); eGFR 76 ML/MIN
--- NOTE | 2022-04-05 15:04 | NUR ---
Patient converted to SR rate in the 50s
--- NOTE | 2022-04-05 16:54 | NUR ---
Machine down, Dialysis nurse bedside to change filter and re start machine
--- NOTE | 2022-04-05 17:30 | NUR ---
CRRT machine back up and running at 8092
[2022-04-05] MEDS ORDERED: LEVO200T8 PO (19:33)
[2022-04-05] MEDS ORDERED: SPIR25TA5 PO (19:33)
[2022-04-05] MEDS ORDERED: UMEC62.5 PO (19:33)
[2022-04-05] MEDS ORDERED: LOSA25TA41 PO (19:33)
[2022-04-05] MEDS ORDERED: AMLO10TA PO (19:33)
--- NOTE | 2022-04-05 20:15 | NUR ---
Dr. Hudson at bedside to see. reviewed monitor showing Sinus Donis with rate of 51 bpm. clarified orders for lopressor Q4H with amiodarone infusing at 1mg/hr. Orders noted to decrease amio rate to 0.5 mg/hr and to hold the 2000 dose of lopressor.
[2022-04-05] MEDS: insulin glargine (Lantus) pen - multi-dose SQ SCH (21:00)
[2022-04-05 21:50] LABS: BASOPHILS % (AUTO) 0.1 % (0-1); EOSINOPHILS % (AUTO) 0 % (0-6); HEMOGLOBIN 8.2 g/dl (12.0-16.0); LYMPHOCYTES # (AUTO) 0.2 X10'3 (1.1-4.8); LYMPHOCYTES % (AUTO) 3.8 % (21-51); MEAN CORPUSCULAR HEMOGLOBIN 30.3 PG (27.0-31.0); MEAN CORPUSCULAR HGB CONC 32.6 g/dL (33.0-36.5); MEAN CORPUSCULAR VOLUME 92.7 FL (78-98); MEAN PLATELET VOLUME 7.2 FL (7.4-10.4); MONOCYTES # (AUTO) 0.2 X10'3 (0-0.9); MONOCYTES % (AUTO) 3.2 % (2-12); NEUTROPHILS # (AUTO) 6.1 X10'3 (1.8-7.7); NEUTROPHILS % (AUTO) 92.9 % (42-75); PLATELET COUNT 87 X10'3 (140-440); RED BLOOD COUNT 2.69 X10'6 (4.20-5.60); WHITE BLOOD COUNT 6.5 X10'3 (4.5-11.0)
[2022-04-05 21:59] LABS: ALBUMIN 2.8 G/DL (3.4-5.0); ANION GAP 7 (8-16); BLOOD UREA NITROGEN 14 MG/DL (7-18); BUN/CREATININE RATIO 17.3 (6.6-38.0); CHLORIDE 102 MMOL/L (99-107); CREATININE 0.81 MG/DL (0.40-0.90); GLUCOSE 184 MG/DL (70-104); MAGNESIUM 1.7 MG/DL (1.5-2.4); PHOSPHORUS 2.7 MG/DL (2.3-4.5); POTASSIUM 3.7 MMOL/L (3.5-5.1); SODIUM 136 MMOL/L (135-145); TOTAL CARBON DIOXIDE 26.8 MMOL/L (24-32); eGFR 72 ML/MIN
[2022-04-06] VITALS (35 sets, daily range): BP systolic 89–149; BP diastolic 37–58
[2022-04-06] MEDS: metoprolol tartrate 1mg/ml inj IV SCH ×7 (00:07→23:39)
[2022-04-06] MEDS: amiodarone/D5 360MG/200ML BAG 200 ML IV SCH ×2 (00:08→08:30)
[2022-04-06] MEDS: Duosol 4K/3 Ca (w/calcium) 5,000 ML HE SCH ×18 (00:09→23:51)
[2022-04-06] MEDS: propofol 1000mg/100ml bottle 100 ML IV SCH ×6 (00:09→23:07)
--- NOTE | 2022-04-06 00:15 | NUR ---
Core temp 35.5 Poncho hugger placed at this time
[2022-04-06] MEDS: fentaNYL 50mcg/ml PF inj. 2,500 MCG in normal saline 250ml IV soln 200 ML IV PRN ×2 (00:30→16:11)
[2022-04-06] MEDS: mineral oil/petrolatum ophthal oint EACHEYE SCH ×4 (02:13→20:13)
[2022-04-06] MEDS: methylPREDNISolone sod succ/PF 40mg inj. IV SCH ×4 (02:13→20:14)
[2022-04-06] MEDS: insulin regular, human U-100 3ml vial - multi-dose SQ SCH ×4 (02:36→20:38)
[2022-04-06] MEDS: ipratropium/albuterol 3ml nebule NEB SCH ×6 (02:53→23:06)
[2022-04-06 03:04] LABS: ABG BASE EXCESS 3.1 mmol/L (-2.0-2.0); ABG HCO3 28.9 mmol/L (22.0-26.0); ABG OXYGEN SATURATION 96.5 % (94-97); ABG PO2 (T) 85.7 mmHg (75.0-100.0); ALLEN'S TEST POSITIVE; FCOHb 0.3 % (0.0-3.9); FMetHb 0.2 % (0.0-1.5); PEEP 5 cm H2O; RESPIRATORY RATE 20 b/min; TIDAL VOLUME 400 mL; TOTAL HEMOGLOBIN 9.2 G/dl (12.0-16.0)
[2022-04-06 03:19] LABS: BASOPHILS % (AUTO) 0 % (0-1); EOSINOPHILS % (AUTO) 0 % (0-6); HEMATOCRIT 24.7 % (35.0-45.0); LYMPHOCYTES # (AUTO) 0.3 X10'3 (1.1-4.8); LYMPHOCYTES % (AUTO) 4.4 % (21-51); MEAN CORPUSCULAR HEMOGLOBIN 30.3 PG (27.0-31.0); MEAN CORPUSCULAR HGB CONC 32.5 g/dL (33.0-36.5); MEAN CORPUSCULAR VOLUME 93.4 FL (78-98); MEAN PLATELET VOLUME 7.2 FL (7.4-10.4); MONOCYTES # (AUTO) 0.2 X10'3 (0-0.9); NEUTROPHILS # (AUTO) 6.1 X10'3 (1.8-7.7); NEUTROPHILS % (AUTO) 92.6 % (42-75); PLATELET COUNT 89 X10'3 (140-440); RED BLOOD COUNT 2.64 X10'6 (4.20-5.60); RED CELL DISTRIBUTION WIDTH 17.2 % (11.5-14.5); WHITE BLOOD COUNT 6.6 X10'3 (4.5-11.0)
[2022-04-06 03:30] LABS: ALANINE AMINOTRANSFERASE 65 U/L (12-78); ALBUMIN 2.7 G/DL (3.4-5.0); ALKALINE PHOSPHATASE 108 IU/L (46-116); ANION GAP 6 (8-16); ASPARTATE AMINO TRANSFERASE 21 U/L (10-37); BILIRUBIN,TOTAL 0.4 MG/DL (0.1-1.0); BLOOD UREA NITROGEN 14 MG/DL (7-18); BUN/CREATININE RATIO 17.7 (6.6-38.0); CALCIUM 8.6 MG/DL (8.5-10.1); CHLORIDE 102 MMOL/L (99-107); CREATININE 0.79 MG/DL (0.40-0.90); GLUCOSE 174 MG/DL (70-104); MAGNESIUM 1.8 MG/DL (1.5-2.4); PHOSPHORUS 5.4 MG/DL (2.3-4.5); POTASSIUM 3.8 MMOL/L (3.5-5.1); SODIUM 137 MMOL/L (135-145); TOTAL CARBON DIOXIDE 28.7 MMOL/L (24-32); TOTAL PROTEIN 5.5 G/DL (6.4-8.2); eGFR 74 ML/MIN
[2022-04-06 03:45] LABS: ANISOCYTOSIS 1+; PLATELET ESTIMATE DECREASED; POIKILOCYTOSIS FEW; POLYCHROMASIA FEW; TEAR DROP CELLS FEW
--- NOTE | 2022-04-06 06:30 | NUR ---
Patient in room CICU 2011. I have received report from Genet ALVAREZ and had the opportunity to ask questions and assume patient care.
[2022-04-06] MEDS: NORepinephrine 8mg/ 250ml NS 250 ML IV SCH ×2 (07:05→16:19)
[2022-04-06] MEDS: docusate sodium 100mg/10ml UD cup OGT SCH ×2 (07:24→20:15)
[2022-04-06] MEDS: pantoprazole 40MG/NS 100ML BAG 100 ML IV SCH ×2 (07:24→20:14)
[2022-04-06 09:55] LABS: BASOPHILS % (AUTO) 0.1 % (0-1); EOSINOPHILS % (AUTO) 0 % (0-6); HEMATOCRIT 27.6 % (35.0-45.0); HEMOGLOBIN 8.4 g/dl (12.0-16.0); LYMPHOCYTES # (AUTO) 0.2 X10'3 (1.1-4.8); LYMPHOCYTES % (AUTO) 1.8 % (21-51); MEAN CORPUSCULAR HEMOGLOBIN 28.6 PG (27.0-31.0); MEAN CORPUSCULAR HGB CONC 30.5 g/dL (33.0-36.5); MEAN PLATELET VOLUME 7.6 FL (7.4-10.4); MONOCYTES # (AUTO) 0.4 X10'3 (0-0.9); MONOCYTES % (AUTO) 3.1 % (2-12); NEUTROPHILS # (AUTO) 11.8 X10'3 (1.8-7.7); PLATELET COUNT 113 X10'3 (140-440); RED BLOOD COUNT 2.94 X10'6 (4.20-5.60); RED CELL DISTRIBUTION WIDTH 17.6 % (11.5-14.5); WHITE BLOOD COUNT 12.4 X10'3 (4.5-11.0)
[2022-04-06 10:02] LABS: BUN/CREATININE RATIO 16.3 (6.6-38.0); CREATININE 0.92 MG/DL (0.40-0.90)
[2022-04-06] MEDS: EPOETIN ALFA-EPBX 20,000 UNIT/ML 1 ML MDV SQ SCH (10:21)
[2022-04-06] MEDS ORDERED: amiodarone 200mg tablet PO SCH (10:26)
[2022-04-06] MEDS: piperacillin/tazo 3.375gm/50ml 50 ML IV SCH ×2 (10:33→23:39)
[2022-04-06] MEDS: amiodarone 200mg tablet OGT SCH ×2 (10:33→20:15)
--- NOTE | 2022-04-06 11:34 | NUR ---
Reassessment: Pt remains intubated and tolerating TF at goal rate with GRV WNL. Propofol visualized at bedside to be down to 14.66 mL/hr providing 387 kcal/day. Recommend increasing TF goal rate to 60 mL/hr, d/w RN who will update order in EMR. LBM 03/31, pt receiving routine Colace BID. Pt to begin routine Erythromycin today per MD at [facility]. Pt continues on CVVH. Will continue to follow. Recommendations: 1) Continuous TF per MD; given Propofol at 14.66 mL/hr (387 kcal/day) Vital HP at 60 mL/hr goal; to provide 1440 mL volume/day, 1440 kcal, 126 g protein, and 1204 mL water. 2) If Propofol weaned; Vital HP at 65 mL/hr goal rate to provide 1560 mL total volume/day, 1560 kcal, 137 g protein, and 1304 mL water 3) Additional water flush per physician; on CVVH 4) PALB q Sunday/ 5) Daily scaled wts 6) Routine bowel regimen; now day 6 with no BM Addendum: 04/06/22 at [address] Amended: Links added.
[2022-04-06 14:25] LABS: BASOPHILS % (AUTO) 0.3 % (0-1); EOSINOPHILS % (AUTO) 0.1 % (0-6); HEMATOCRIT 26.7 % (35.0-45.0); HEMOGLOBIN 8.4 g/dl (12.0-16.0); LYMPHOCYTES # (AUTO) 0.2 X10'3 (1.1-4.8); LYMPHOCYTES % (AUTO) 2.2 % (21-51); MEAN CORPUSCULAR HEMOGLOBIN 29.7 PG (27.0-31.0); MEAN CORPUSCULAR HGB CONC 31.6 g/dL (33.0-36.5); MEAN PLATELET VOLUME 7.4 FL (7.4-10.4); MONOCYTES # (AUTO) 0.2 X10'3 (0-0.9); MONOCYTES % (AUTO) 2.3 % (2-12); NEUTROPHILS # (AUTO) 9.9 X10'3 (1.8-7.7); NEUTROPHILS % (AUTO) 95.1 % (42-75); PLATELET COUNT 99 X10'3 (140-440); RED BLOOD COUNT 2.84 X10'6 (4.20-5.60); RED CELL DISTRIBUTION WIDTH 17.6 % (11.5-14.5); WHITE BLOOD COUNT 10.5 X10'3 (4.5-11.0)
[2022-04-06 14:27] LABS: ANION GAP 4 (8-16); BLOOD UREA NITROGEN 16 MG/DL (7-18); BUN/CREATININE RATIO 17.6 (6.6-38.0); CHLORIDE 103 MMOL/L (99-107); CREATININE 0.91 MG/DL (0.40-0.90); GLUCOSE 200 MG/DL (70-104); MAGNESIUM 1.9 MG/DL (1.5-2.4); PHOSPHORUS 2.7 MG/DL (2.3-4.5); POTASSIUM 4.7 MMOL/L (3.5-5.1); SODIUM 136 MMOL/L (135-145); TOTAL CARBON DIOXIDE 29.3 MMOL/L (24-32); eGFR 63 ML/MIN
[2022-04-06] MEDS ORDERED: erythromycin base 250mg tablet OGT SCH (16:00)
[2022-04-06] MEDS: erythromycin ethylsuccinate 200mg/5ml 200ml bottle OGT SCH ×2 (16:10→23:38)
[2022-04-06 17:58] LABS: GLUCOSE 194 MG/DL (70-104); SODIUM 136 MMOL/L (135-145)
[2022-04-06 18:00] LABS: ANION GAP 5 (8-16); BLOOD UREA NITROGEN 15 MG/DL (7-18); TOTAL CARBON DIOXIDE 29.3 MMOL/L (24-32); eGFR 62 ML/MIN
[2022-04-06 18:01] LABS: MAGNESIUM 1.9 MG/DL (1.5-2.4)
[2022-04-06 18:07] LABS: CHLORIDE 102 MMOL/L (99-107); POTASSIUM 4.6 MMOL/L (3.5-5.1)
--- NOTE | 2022-04-06 18:12 | NUR ---
Patient in room CICU 2011. I have received report from Hafsa ALVAREZ and had the opportunity to ask questions and assume patient care.
--- NOTE | 2022-04-06 18:12 | NUR ---
Problems reprioritized. Patient report given, questions answered & plan of care reviewed with Leatha ALVAREZ.
[2022-04-06 20:09] LABS: BASOPHILS % (AUTO) 0.2 % (0-1); EOSINOPHILS % (AUTO) 0 % (0-6); HEMATOCRIT 26.5 % (35.0-45.0); HEMOGLOBIN 8.3 g/dl (12.0-16.0); LYMPHOCYTES # (AUTO) 0.2 X10'3 (1.1-4.8); LYMPHOCYTES % (AUTO) 2.7 % (21-51); MEAN CORPUSCULAR HEMOGLOBIN 29.5 PG (27.0-31.0); MEAN CORPUSCULAR HGB CONC 31.2 g/dL (33.0-36.5); MEAN CORPUSCULAR VOLUME 94.4 FL (78-98); MEAN PLATELET VOLUME 7.2 FL (7.4-10.4); MONOCYTES # (AUTO) 0.2 X10'3 (0-0.9); MONOCYTES % (AUTO) 2.6 % (2-12); NEUTROPHILS # (AUTO) 8.9 X10'3 (1.8-7.7); NEUTROPHILS % (AUTO) 94.5 % (42-75); PLATELET COUNT 98 X10'3 (140-440); RED CELL DISTRIBUTION WIDTH 16.8 % (11.5-14.5); WHITE BLOOD COUNT 9.4 X10'3 (4.5-11.0)
[2022-04-06 20:23] LABS: ANION GAP 4 (8-16); BLOOD UREA NITROGEN 17 MG/DL (7-18); BUN/CREATININE RATIO 18.7 (6.6-38.0); CHLORIDE 101 MMOL/L (99-107); CREATININE 0.91 MG/DL (0.40-0.90); GLUCOSE 189 MG/DL (70-104); MAGNESIUM 1.9 MG/DL (1.5-2.4); PHOSPHORUS 2.5 MG/DL (2.3-4.5); POTASSIUM 4.6 MMOL/L (3.5-5.1); SODIUM 135 MMOL/L (135-145); eGFR 63 ML/MIN
[2022-04-06] MEDS: insulin glargine (Lantus) pen - multi-dose SQ SCH (20:39)
[2022-04-06 20:41] LABS: ANISOCYTOSIS 1+; POLYCHROMASIA FEW; STOMATOCYTES FEW
[2022-04-06 20:45] LABS: PLATELET ESTIMATE DECREASED
[2022-04-07] VITALS (35 sets, daily range): BP systolic 102–151; BP diastolic 37–57
[2022-04-07] MEDS ORDERED: FENTANYL-0.9 % NACL/PF 250 ML IV SCH (01:00)
[2022-04-07] MEDS: Duosol 4K/3 Ca (w/calcium) 5,000 ML HE SCH ×15 (01:03→23:33)
[2022-04-07] MEDS: methylPREDNISolone sod succ/PF 40mg inj. IV SCH ×4 (02:37→20:29)
[2022-04-07] MEDS: insulin regular, human U-100 3ml vial - multi-dose SQ SCH ×4 (02:44→20:33)
[2022-04-07] MEDS: mineral oil/petrolatum ophthal oint EACHEYE SCH ×4 (02:44→20:30)
[2022-04-07 02:54] LABS: BASOPHILS % (AUTO) 0.5 % (0-1); EOSINOPHILS % (AUTO) 0 % (0-6); HEMATOCRIT 26.1 % (35.0-45.0); HEMOGLOBIN 8.2 g/dl (12.0-16.0); LYMPHOCYTES # (AUTO) 0.2 X10'3 (1.1-4.8); LYMPHOCYTES % (AUTO) 2.3 % (21-51); MEAN CORPUSCULAR HEMOGLOBIN 29.4 PG (27.0-31.0); MEAN CORPUSCULAR HGB CONC 31.4 g/dL (33.0-36.5); MEAN CORPUSCULAR VOLUME 93.7 FL (78-98); MEAN PLATELET VOLUME 7.6 FL (7.4-10.4); MONOCYTES # (AUTO) 0.4 X10'3 (0-0.9); MONOCYTES % (AUTO) 3.9 % (2-12); NEUTROPHILS # (AUTO) 8.6 X10'3 (1.8-7.7); NEUTROPHILS % (AUTO) 93.3 % (42-75); PLATELET COUNT 95 X10'3 (140-440); RED BLOOD COUNT 2.78 X10'6 (4.20-5.60); RED CELL DISTRIBUTION WIDTH 17.2 % (11.5-14.5); WHITE BLOOD COUNT 9.2 X10'3 (4.5-11.0)
[2022-04-07 03:08] LABS: ALANINE AMINOTRANSFERASE 66 U/L (12-78); ALKALINE PHOSPHATASE 119 IU/L (46-116); ANION GAP 1 (8-16); ASPARTATE AMINO TRANSFERASE 30 U/L (10-37); BILIRUBIN,TOTAL 0.5 MG/DL (0.1-1.0); BLOOD UREA NITROGEN 17 MG/DL (7-18); BUN/CREATININE RATIO 19.3 (6.6-38.0); CALCIUM 8.8 MG/DL (8.5-10.1); CHLORIDE 102 MMOL/L (99-107); CREATININE 0.88 MG/DL (0.40-0.90); GLUCOSE 166 MG/DL (70-104); MAGNESIUM 1.9 MG/DL (1.5-2.4); PHOSPHORUS 2.5 MG/DL (2.3-4.5); POTASSIUM 4.6 MMOL/L (3.5-5.1); SODIUM 135 MMOL/L (135-145); TOTAL CARBON DIOXIDE 31.6 MMOL/L (24-32); TOTAL PROTEIN 6.1 G/DL (6.4-8.2); eGFR 65 ML/MIN
--- NOTE | 2022-04-07 03:17 | NUR ---
Dialysis catheter positional, CVVH machine not tolerating patient being turned to right side. Patient turned to left side, catheter stabilized with tape and supported with rolled up towels to prevent occlusion. Shifting hips and offloading pressure to extremities with pillows q2hrs.
[2022-04-07] MEDS: propofol 1000mg/100ml bottle 100 ML IV SCH ×5 (03:28→22:40)
[2022-04-07] MEDS: ipratropium/albuterol 3ml nebule NEB SCH ×6 (03:38→23:08)
[2022-04-07 03:54] LABS: ABG BASE EXCESS 2.3 mmol/L (-2.0-2.0); ABG HCO3 28.9 mmol/L (22.0-26.0); ABG OXYGEN SATURATION 90.7 % (94-97); ABG PCO2 (T) 53.8 mmHg (32.0-45.0); ABG PO2 (T) 57.6 mmHg (75.0-100.0); ALLEN'S TEST Modified; FCOHb 0.7 % (0.0-3.9); FMetHb 0.2 % (0.0-1.5); FO2Hb 89.9 % (94-97); PATIENT TEMPERATURE 36.1; PEEP 5 cm H2O; RESPIRATORY RATE 20 b/min; TIDAL VOLUME 400 mL; TOTAL HEMOGLOBIN 9.3 G/dl (12.0-16.0)
[2022-04-07] MEDS: metoprolol tartrate 1mg/ml inj IV SCH ×5 (04:00→20:29)
[2022-04-07] MEDS: NORepinephrine 8mg/ 250ml NS 250 ML IV SCH ×2 (05:51→15:50)
--- NOTE | 2022-04-07 06:10 | NUR ---
Problems reprioritized. Patient report given, questions answered & plan of care reviewed with Hafsa ALVAREZ.
--- NOTE | 2022-04-07 06:30 | NUR ---
Patient in room CICU 2011. I have received report from Leatha ALVAREZ and had the opportunity to ask questions and assume patient care.
[2022-04-07] MEDS: erythromycin ethylsuccinate 200mg/5ml 200ml bottle OGT SCH ×2 (07:22→15:51)
[2022-04-07] MEDS: docusate sodium 100mg/10ml UD cup OGT SCH ×2 (07:22→20:29)
[2022-04-07] MEDS: amiodarone 200mg tablet OGT SCH ×2 (07:23→20:30)
[2022-04-07 07:52] LABS: BASOPHILS # (AUTO) 0.1 X10'3 (0-0.2); BASOPHILS % (AUTO) 0.6 % (0-1); EOSINOPHILS % (AUTO) 0.1 % (0-6); HEMATOCRIT 27.1 % (35.0-45.0); HEMOGLOBIN 8.7 g/dl (12.0-16.0); LYMPHOCYTES # (AUTO) 0.2 X10'3 (1.1-4.8); LYMPHOCYTES % (AUTO) 1.5 % (21-51); MEAN CORPUSCULAR HEMOGLOBIN 30.2 PG (27.0-31.0); MEAN CORPUSCULAR HGB CONC 32.1 g/dL (33.0-36.5); MEAN CORPUSCULAR VOLUME 94.1 FL (78-98); MEAN PLATELET VOLUME 7.6 FL (7.4-10.4); MONOCYTES # (AUTO) 0.3 X10'3 (0-0.9); MONOCYTES % (AUTO) 2.8 % (2-12); NEUTROPHILS # (AUTO) 9.6 X10'3 (1.8-7.7); PLATELET COUNT 96 X10'3 (140-440); RED BLOOD COUNT 2.88 X10'6 (4.20-5.60); RED CELL DISTRIBUTION WIDTH 17.1 % (11.5-14.5); WHITE BLOOD COUNT 10.2 X10'3 (4.5-11.0)
[2022-04-07] MEDS: pantoprazole 40MG/NS 100ML BAG 100 ML IV SCH ×2 (08:00→20:30)
[2022-04-07 08:23] LABS: ALBUMIN 3.2 G/DL (3.4-5.0); ANION GAP 3 (8-16); BLOOD UREA NITROGEN 16 MG/DL (7-18); BUN/CREATININE RATIO 18.6 (6.6-38.0); CHLORIDE 102 MMOL/L (99-107); CREATININE 0.86 MG/DL (0.40-0.90); GLUCOSE 151 MG/DL (70-104); MAGNESIUM 1.9 MG/DL (1.5-2.4); PHOSPHORUS 2.4 MG/DL (2.3-4.5); POTASSIUM 4.7 MMOL/L (3.5-5.1); SODIUM 136 MMOL/L (135-145); TOTAL CARBON DIOXIDE 30.9 MMOL/L (24-32); eGFR 67 ML/MIN
[2022-04-07] MEDS: fentaNYL 50mcg/ml PF inj. 2,500 MCG in normal saline 250ml IV soln 200 ML IV PRN (09:15)
[2022-04-07] MEDS ORDERED: erythromycin ethylsuccinate 200mg/5ml 200ml bottle OGT SCH (10:23)
[2022-04-07] MEDS: piperacillin/tazo 3.375gm/50ml 50 ML IV SCH ×2 (10:39→22:40)
[2022-04-07 14:13] LABS: BASOPHILS % (AUTO) 0.1 % (0-1); EOSINOPHILS % (AUTO) 0 % (0-6); HEMATOCRIT 27.5 % (35.0-45.0); HEMOGLOBIN 8.5 g/dl (12.0-16.0); LYMPHOCYTES # (AUTO) 0.2 X10'3 (1.1-4.8); LYMPHOCYTES % (AUTO) 1.8 % (21-51); MEAN CORPUSCULAR HEMOGLOBIN 29.1 PG (27.0-31.0); MEAN CORPUSCULAR HGB CONC 30.8 g/dL (33.0-36.5); MEAN CORPUSCULAR VOLUME 94.4 FL (78-98); MEAN PLATELET VOLUME 7.9 FL (7.4-10.4); MONOCYTES # (AUTO) 0.2 X10'3 (0-0.9); MONOCYTES % (AUTO) 1.8 % (2-12); NEUTROPHILS # (AUTO) 8.5 X10'3 (1.8-7.7); NEUTROPHILS % (AUTO) 96.3 % (42-75); PLATELET COUNT 79 X10'3 (140-440); RED BLOOD COUNT 2.91 X10'6 (4.20-5.60); RED CELL DISTRIBUTION WIDTH 16.7 % (11.5-14.5); WHITE BLOOD COUNT 8.8 X10'3 (4.5-11.0)
[2022-04-07 14:29] LABS: ALBUMIN 3.2 G/DL (3.4-5.0); ANION GAP 1 (8-16); BLOOD UREA NITROGEN 18 MG/DL (7-18); BUN/CREATININE RATIO 22.2 (6.6-38.0); CHLORIDE 102 MMOL/L (99-107); CREATININE 0.81 MG/DL (0.40-0.90); GLUCOSE 199 MG/DL (70-104); PHOSPHORUS 2.4 MG/DL (2.3-4.5); POTASSIUM 4.7 MMOL/L (3.5-5.1); SODIUM 134 MMOL/L (135-145); TOTAL CARBON DIOXIDE 31.5 MMOL/L (24-32); eGFR 72 ML/MIN
--- NOTE | 2022-04-07 17:08 | NUR ---
Patient opens eyes to verbal stimuli. Nodded head yes in response to question. No movement of extremities. Requiring Fentanyl & Propofol to keep patient sedated in order to maintain sats and to keep CRRT running. CRRT stops with movement & coughing. Remains in SB/SR. Levo at minimal dose. FiO2 increased to 70% d/t sats decreasing to high 80's. Zelda TF well. No BM.
--- NOTE | 2022-04-07 18:06 | NUR ---
Problems reprioritized. Patient report given, questions answered & plan of care reviewed with Leatha ALVAREZ.
--- NOTE | 2022-04-07 18:18 | NUR ---
Patient in room CICU 2011. I have received report from Hafsa ALVAREZ and had the opportunity to ask questions and assume patient care.
[2022-04-07] MEDS: insulin glargine (Lantus) pen - multi-dose SQ SCH (20:34)
[2022-04-07 20:44] LABS: BASOPHILS % (AUTO) 0.1 % (0-1); EOSINOPHILS % (AUTO) 0 % (0-6); HEMATOCRIT 26.8 % (35.0-45.0); HEMOGLOBIN 8.4 g/dl (12.0-16.0); LYMPHOCYTES # (AUTO) 0.2 X10'3 (1.1-4.8); LYMPHOCYTES % (AUTO) 2.1 % (21-51); MEAN CORPUSCULAR HEMOGLOBIN 29.4 PG (27.0-31.0); MEAN CORPUSCULAR HGB CONC 31.2 g/dL (33.0-36.5); MEAN CORPUSCULAR VOLUME 94.1 FL (78-98); MEAN PLATELET VOLUME 7.8 FL (7.4-10.4); MONOCYTES # (AUTO) 0.3 X10'3 (0-0.9); MONOCYTES % (AUTO) 3.1 % (2-12); NEUTROPHILS # (AUTO) 10.4 X10'3 (1.8-7.7); NEUTROPHILS % (AUTO) 94.7 % (42-75); PLATELET COUNT 96 X10'3 (140-440); RED BLOOD COUNT 2.84 X10'6 (4.20-5.60); RED CELL DISTRIBUTION WIDTH 16.7 % (11.5-14.5)
[2022-04-07 20:54] LABS: ALBUMIN 3.1 G/DL (3.4-5.0); ANION GAP 3 (8-16); BLOOD UREA NITROGEN 20 MG/DL (7-18); CHLORIDE 101 MMOL/L (99-107); CREATININE 0.87 MG/DL (0.40-0.90); GLUCOSE 172 MG/DL (70-104); MAGNESIUM 1.9 MG/DL (1.5-2.4); PHOSPHORUS 2.1 MG/DL (2.3-4.5); POTASSIUM 4.7 MMOL/L (3.5-5.1); SODIUM 135 MMOL/L (135-145); eGFR 66 ML/MIN
[2022-04-07] MEDS: polyethylene glycol 3350 17gm powd pack OGT SCH (21:02)
[2022-04-07] MEDS: sodium phosphate inj. 30 MMOL in normal saline 250ml IV soln 250 ML IV PRN (23:29)
[2022-04-08] VITALS (35 sets, daily range): BP systolic 98–151; BP diastolic 39–60
[2022-04-08] MEDS: erythromycin ethylsuccinate 200mg/5ml 200ml bottle OGT SCH ×4 (00:13→23:27)
[2022-04-08] MEDS: metoprolol tartrate 1mg/ml inj IV SCH ×6 (00:13→19:59)
[2022-04-08] MEDS: Duosol 4K/3 Ca (w/calcium) 5,000 ML HE SCH ×11 (01:03→12:40)
[2022-04-08] MEDS: FENTANYL-0.9 % NACL/PF 100 ML IV PRN ×2 (01:29→08:00)
[2022-04-08] MEDS: methylPREDNISolone sod succ/PF 40mg inj. IV SCH ×4 (01:59→20:00)
[2022-04-08] MEDS: mineral oil/petrolatum ophthal oint EACHEYE SCH ×4 (02:00→20:00)
[2022-04-08] MEDS: insulin regular, human U-100 3ml vial - multi-dose SQ SCH ×4 (02:19→20:05)
[2022-04-08 02:33] LABS: BASOPHILS % (AUTO) 0.2 % (0-1); EOSINOPHILS % (AUTO) 0 % (0-6); HEMATOCRIT 26.4 % (35.0-45.0); HEMOGLOBIN 8.3 g/dl (12.0-16.0); LYMPHOCYTES # (AUTO) 0.2 X10'3 (1.1-4.8); MEAN CORPUSCULAR HEMOGLOBIN 29.3 PG (27.0-31.0); MEAN CORPUSCULAR HGB CONC 31.2 g/dL (33.0-36.5); MEAN CORPUSCULAR VOLUME 93.8 FL (78-98); MONOCYTES # (AUTO) 0.3 X10'3 (0-0.9); NEUTROPHILS # (AUTO) 8.6 X10'3 (1.8-7.7); NEUTROPHILS % (AUTO) 94.8 % (42-75); PLATELET COUNT 98 X10'3 (140-440); RED BLOOD COUNT 2.82 X10'6 (4.20-5.60); RED CELL DISTRIBUTION WIDTH 16.7 % (11.5-14.5)
[2022-04-08] MEDS: NORepinephrine 8mg/ 250ml NS 250 ML IV SCH ×2 (02:45→12:41)
[2022-04-08 02:49] LABS: ALANINE AMINOTRANSFERASE 63 U/L (12-78); ALKALINE PHOSPHATASE 117 IU/L (46-116); ANION GAP 6 (8-16); ASPARTATE AMINO TRANSFERASE 42 U/L (10-37); BILIRUBIN,TOTAL 0.6 MG/DL (0.1-1.0); BLOOD UREA NITROGEN 21 MG/DL (7-18); BUN/CREATININE RATIO 23.1 (6.6-38.0); CALCIUM 8.9 MG/DL (8.5-10.1); CHLORIDE 101 MMOL/L (99-107); CREATININE 0.91 MG/DL (0.40-0.90); GLUCOSE 231 MG/DL (70-104); MAGNESIUM 1.9 MG/DL (1.5-2.4); PHOSPHORUS 4.9 MG/DL (2.3-4.5); POTASSIUM 4.5 MMOL/L (3.5-5.1); SODIUM 136 MMOL/L (135-145); TOTAL CARBON DIOXIDE 29.1 MMOL/L (24-32); TOTAL PROTEIN 6.1 G/DL (6.4-8.2); eGFR 63 ML/MIN
[2022-04-08] MEDS: propofol 1000mg/100ml bottle 100 ML IV SCH ×6 (03:03→22:21)
[2022-04-08] MEDS: ipratropium/albuterol 3ml nebule NEB SCH ×6 (03:17→22:53)
[2022-04-08 03:29] LABS: ANISOCYTOSIS 1+; PLATELET ESTIMATE DECREASED
[2022-04-08 03:30] LABS: HYPOCHROMASIA 1+; POLYCHROMASIA FEW
[2022-04-08 03:33] LABS: ABG HCO3 26.8 mmol/L (22.0-26.0); ABG OXYGEN SATURATION 91.3 % (94-97); ABG PCO2 (T) 52.9 mmHg (32.0-45.0); ABG PO2 (T) 59.9 mmHg (75.0-100.0); ALLEN'S TEST Modified; FCOHb 0.2 % (0.0-3.9); FMetHb 0.1 % (0.0-1.5); PATIENT TEMPERATURE 36.1; PEEP 5 cm H2O; RESPIRATORY RATE 20 b/min; TIDAL VOLUME 400 mL; TOTAL HEMOGLOBIN 9.7 G/dl (12.0-16.0)
--- NOTE | 2022-04-08 05:49 | NUR ---
CVVH machine went down during turns to obtain chest xray. broaching machine operator notified. Catheter ports saline locked per protocol.
--- NOTE | 2022-04-08 06:14 | NUR ---
Problems reprioritized. Patient report given, questions answered & plan of care reviewed with Hafsa ALVAREZ.
--- NOTE | 2022-04-08 06:30 | NUR ---
Patient in room CICU 2011. I have received report from Leatha ALVAREZ and had the opportunity to ask questions and assume patient care.
[2022-04-08] MEDS: docusate sodium 100mg/10ml UD cup OGT SCH ×2 (07:17→20:00)
[2022-04-08] MEDS: amiodarone 200mg tablet OGT SCH ×2 (07:18→20:01)
[2022-04-08] MEDS: pantoprazole 40MG/NS 100ML BAG 100 ML IV SCH ×2 (07:18→20:00)
[2022-04-08 08:28] LABS: BASOPHILS % (AUTO) 0.1 % (0-1); EOSINOPHILS % (AUTO) 0 % (0-6); HEMATOCRIT 26.8 % (35.0-45.0); HEMOGLOBIN 8.1 g/dl (12.0-16.0); LYMPHOCYTES # (AUTO) 0.2 X10'3 (1.1-4.8); LYMPHOCYTES % (AUTO) 1.4 % (21-51); MEAN CORPUSCULAR HEMOGLOBIN 28.5 PG (27.0-31.0); MEAN CORPUSCULAR HGB CONC 30.3 g/dL (33.0-36.5); MEAN CORPUSCULAR VOLUME 93.9 FL (78-98); MEAN PLATELET VOLUME 8.2 FL (7.4-10.4); MONOCYTES # (AUTO) 0.4 X10'3 (0-0.9); MONOCYTES % (AUTO) 3.1 % (2-12); NEUTROPHILS # (AUTO) 11.8 X10'3 (1.8-7.7); NEUTROPHILS % (AUTO) 95.4 % (42-75); PLATELET COUNT 117 X10'3 (140-440); RED BLOOD COUNT 2.85 X10'6 (4.20-5.60); RED CELL DISTRIBUTION WIDTH 16.6 % (11.5-14.5); WHITE BLOOD COUNT 12.4 X10'3 (4.5-11.0)
[2022-04-08 08:30] LABS: ANION GAP 3 (8-16); BLOOD UREA NITROGEN 28 MG/DL (7-18); BUN/CREATININE RATIO 25.7 (6.6-38.0); CHLORIDE 102 MMOL/L (99-107); CREATININE 1.09 MG/DL (0.40-0.90); GLUCOSE 200 MG/DL (70-104); PHOSPHORUS 4.4 MG/DL (2.3-4.5); POTASSIUM 4.8 MMOL/L (3.5-5.1); SODIUM 135 MMOL/L (135-145); eGFR 51 ML/MIN
[2022-04-08] MEDS: FENTANYL-0.9 % NACL/PF 250 ML IV SCH ×2 (09:00→15:11)
[2022-04-08] MEDS ORDERED: FENTANYL-0.9 % NACL/PF 250 ML IV SCH (09:00)
[2022-04-08] MEDS: EPOETIN ALFA-EPBX 20,000 UNIT/ML 1 ML MDV SQ SCH (10:27)
[2022-04-08] MEDS: piperacillin/tazo 3.375gm/50ml 50 ML IV SCH ×2 (10:30→23:22)
[2022-04-08] MEDS ORDERED: heparin 1,000 units/ml 10ml inj HE STA ×2 (14:22)
--- NOTE | 2022-04-08 14:30 | NUR ---
CRRT off for emergent CT to R/O PE. Unable to keep CRRT running. Tx DC'd per Dr. Gamboa's orders.
[2022-04-08] MEDS: magnesium hydroxide 30ml (MOM) UD suspension OGT PRN (15:45)
--- NOTE | 2022-04-08 17:10 | NUR ---
Remains sedated on Fentanyl & Propofol. Will open eyes to noxious stimuli. Remains on low dose Levophed. Required increasing PEEP to 10 with FiO2 60%. Sats in high 90's now. Minimal secretions. Zelda TF well. No BM. No UO.
--- NOTE | 2022-04-08 18:05 | NUR ---
Problems reprioritized. Patient report given, questions answered & plan of care reviewed with Leatha ALVAREZ.
--- NOTE | 2022-04-08 18:15 | NUR ---
Patient in room CICU 2011. I have received report from Hafsa ALVAREZ and had the opportunity to ask questions and assume patient care.
[2022-04-08] MEDS: insulin glargine (Lantus) pen - multi-dose SQ SCH (20:09)
[2022-04-08] MEDS: polyethylene glycol 3350 17gm powd pack OGT SCH (21:29)
[2022-04-09] VITALS (35 sets, daily range): BP systolic 100–144; BP diastolic 39–62
[2022-04-09] MEDS: NORepinephrine 8mg/ 250ml NS 250 ML IV SCH ×3 (00:35→22:25)
[2022-04-09] MEDS: methylPREDNISolone sod succ/PF 40mg inj. IV SCH ×4 (02:55→20:12)
[2022-04-09] MEDS: mineral oil/petrolatum ophthal oint EACHEYE SCH ×4 (02:56→20:00)
[2022-04-09] MEDS: insulin regular, human U-100 3ml vial - multi-dose SQ SCH ×4 (03:01→20:19)
[2022-04-09 03:22] LABS: BASOPHILS % (AUTO) 0.1 % (0-1); EOSINOPHILS % (AUTO) 0 % (0-6); HEMATOCRIT 25.7 % (35.0-45.0); LYMPHOCYTES # (AUTO) 0.2 X10'3 (1.1-4.8); LYMPHOCYTES % (AUTO) 1.2 % (21-51); MEAN CORPUSCULAR HEMOGLOBIN 28.8 PG (27.0-31.0); MEAN CORPUSCULAR HGB CONC 30.9 g/dL (33.0-36.5); MEAN CORPUSCULAR VOLUME 92.9 FL (78-98); MEAN PLATELET VOLUME 7.5 FL (7.4-10.4); MONOCYTES # (AUTO) 0.6 X10'3 (0-0.9); MONOCYTES % (AUTO) 3.9 % (2-12); NEUTROPHILS % (AUTO) 94.8 % (42-75); PLATELET COUNT 166 X10'3 (140-440); RED BLOOD COUNT 2.77 X10'6 (4.20-5.60); RED CELL DISTRIBUTION WIDTH 16.6 % (11.5-14.5); WHITE BLOOD COUNT 14.8 X10'3 (4.5-11.0)
[2022-04-09 03:29] LABS: ALANINE AMINOTRANSFERASE 62 U/L (12-78); ALBUMIN 2.9 G/DL (3.4-5.0); ALKALINE PHOSPHATASE 109 IU/L (46-116); ANION GAP 9 (8-16); ASPARTATE AMINO TRANSFERASE 47 U/L (10-37); BILIRUBIN,TOTAL 0.7 MG/DL (0.1-1.0); BLOOD UREA NITROGEN 46 MG/DL (7-18); BUN/CREATININE RATIO 25.8 (6.6-38.0); CALCIUM 8.6 MG/DL (8.5-10.1); CHLORIDE 100 MMOL/L (99-107); CREATININE 1.78 MG/DL (0.40-0.90); GLUCOSE 184 MG/DL (70-104); MAGNESIUM 2.1 MG/DL (1.5-2.4); PHOSPHORUS 3.9 MG/DL (2.3-4.5); POTASSIUM 5.4 MMOL/L (3.5-5.1); SODIUM 136 MMOL/L (135-145); TOTAL CARBON DIOXIDE 27.1 MMOL/L (24-32); TOTAL PROTEIN 5.8 G/DL (6.4-8.2); TRIGLYCERIDES 207 MG/DL (20-135); eGFR 29 ML/MIN
[2022-04-09] MEDS: ipratropium/albuterol 3ml nebule NEB SCH ×6 (03:30→23:10)
[2022-04-09 03:44] LABS: ABG BASE EXCESS -0.6 mmol/L (-2.0-2.0); ABG HCO3 25.2 mmol/L (22.0-26.0); ABG PCO2 (T) 46.4 mmHg (32.0-45.0); ABG PO2 (T) 74.7 mmHg (75.0-100.0); ALLEN'S TEST Modified; FCOHb 0.5 % (0.0-3.9); FMetHb 0.2 % (0.0-1.5); FO2Hb 94.3 % (94-97); PATIENT TEMPERATURE 36.7; PEEP 10 cm H2O; RESPIRATORY RATE 20 b/min; TIDAL VOLUME 400 mL; TOTAL HEMOGLOBIN 9.2 G/dl (12.0-16.0)
[2022-04-09] MEDS: metoprolol tartrate 1mg/ml inj IV SCH ×6 (04:00→20:12)
--- NOTE | 2022-04-09 06:28 | NUR ---
Problems reprioritized. Patient report given, questions answered & plan of care reviewed with Dilma ALVAREZ.
[2022-04-09] MEDS: propofol 1000mg/100ml bottle 100 ML IV SCH ×4 (07:32→23:04)
[2022-04-09] MEDS: amiodarone 200mg tablet OGT SCH ×2 (07:41→20:12)
[2022-04-09] MEDS: docusate sodium 100mg/10ml UD cup OGT SCH ×2 (07:41→20:12)
[2022-04-09] MEDS: pantoprazole 40MG/NS 100ML BAG 100 ML IV SCH ×2 (07:41→20:11)
[2022-04-09] MEDS: erythromycin ethylsuccinate 200mg/5ml 200ml bottle OGT SCH ×2 (07:41→16:04)
[2022-04-09] MEDS: FENTANYL-0.9 % NACL/PF 250 ML IV SCH (07:47)
[2022-04-09] MEDS: piperacillin/tazo 3.375gm/50ml 50 ML IV SCH ×2 (11:48→23:02)
--- NOTE | 2022-04-09 18:23 | NUR ---
Problems reprioritized. Patient report given, questions answered & plan of care reviewed with KIM Rose.
[2022-04-09] MEDS: polyethylene glycol 3350 17gm powd pack OGT SCH (20:12)
[2022-04-09] MEDS: insulin glargine (Lantus) pen - multi-dose SQ SCH (20:20)
[2022-04-10] VITALS (33 sets, daily range): BP systolic 98–158; BP diastolic 35–65
[2022-04-10] MEDS: metoprolol tartrate 1mg/ml inj IV SCH ×8 (00:07→23:06)
[2022-04-10] MEDS: erythromycin ethylsuccinate 200mg/5ml 200ml bottle OGT SCH ×3 (00:08→17:38)
[2022-04-10] MEDS: mineral oil/petrolatum ophthal oint EACHEYE SCH ×4 (02:21→20:47)
[2022-04-10] MEDS: methylPREDNISolone sod succ/PF 40mg inj. IV SCH ×4 (02:23→20:47)
[2022-04-10] MEDS: insulin regular, human U-100 3ml vial - multi-dose SQ SCH ×4 (02:24→21:04)
[2022-04-10 02:34] LABS: BASOPHILS % (AUTO) 0.2 % (0-1); EOSINOPHILS % (AUTO) 0 % (0-6); HEMATOCRIT 23.1 % (35.0-45.0); HEMOGLOBIN 7.2 g/dl (12.0-16.0); LYMPHOCYTES # (AUTO) 0.2 X10'3 (1.1-4.8); MEAN CORPUSCULAR HEMOGLOBIN 29.2 PG (27.0-31.0); MEAN CORPUSCULAR HGB CONC 31.4 g/dL (33.0-36.5); MEAN CORPUSCULAR VOLUME 93.2 FL (78-98); MEAN PLATELET VOLUME 7.6 FL (7.4-10.4); MONOCYTES # (AUTO) 0.3 X10'3 (0-0.9); MONOCYTES % (AUTO) 2.8 % (2-12); NEUTROPHILS # (AUTO) 11.1 X10'3 (1.8-7.7); PLATELET COUNT 138 X10'3 (140-440); RED BLOOD COUNT 2.48 X10'6 (4.20-5.60); RED CELL DISTRIBUTION WIDTH 16.3 % (11.5-14.5); WHITE BLOOD COUNT 11.6 X10'3 (4.5-11.0)
[2022-04-10] MEDS: FENTANYL-0.9 % NACL/PF 250 ML IV SCH (02:36)
[2022-04-10 02:43] LABS: ALANINE AMINOTRANSFERASE 66 U/L (12-78); ALBUMIN 2.8 G/DL (3.4-5.0); ALKALINE PHOSPHATASE 96 IU/L (46-116); ANION GAP 12 (8-16); ASPARTATE AMINO TRANSFERASE 34 U/L (10-37); BILIRUBIN,TOTAL 0.6 MG/DL (0.1-1.0); BLOOD UREA NITROGEN 82 MG/DL (7-18); BUN/CREATININE RATIO 28.3 (6.6-38.0); CALCIUM 8.5 MG/DL (8.5-10.1); CHLORIDE 97 MMOL/L (99-107); GLUCOSE 216 MG/DL (70-104); MAGNESIUM 2.3 MG/DL (1.5-2.4); PHOSPHORUS 5.6 MG/DL (2.3-4.5); POTASSIUM 5.5 MMOL/L (3.5-5.1); SODIUM 133 MMOL/L (135-145); TOTAL CARBON DIOXIDE 23.7 MMOL/L (24-32); TOTAL PROTEIN 5.6 G/DL (6.4-8.2); eGFR 16 ML/MIN
[2022-04-10] MEDS: ipratropium/albuterol 3ml nebule NEB SCH ×6 (03:00→23:00)
[2022-04-10 03:52] LABS: ABG HCO3 21.3 mmol/L (22.0-26.0); ABG OXYGEN SATURATION 94.2 % (94-97); ABG PCO2 (T) 45.4 mmHg (32.0-45.0); ALLEN'S TEST Modified; FCOHb 0.5 % (0.0-3.9); FMetHb 0.3 % (0.0-1.5); FO2Hb 93.4 % (94-97); PATIENT TEMPERATURE 36.9; PEEP 10 cm H2O; RESPIRATORY RATE 20 b/min; TIDAL VOLUME 400 mL; TOTAL HEMOGLOBIN 8.7 G/dl (12.0-16.0)
[2022-04-10] MEDS: propofol 1000mg/100ml bottle 100 ML IV SCH ×4 (05:18→23:05)
[2022-04-10] MEDS: pantoprazole 40MG/NS 100ML BAG 100 ML IV SCH ×2 (07:30→20:47)
[2022-04-10] MEDS: docusate sodium 100mg/10ml UD cup OGT SCH ×2 (07:30→20:48)
[2022-04-10] MEDS: amiodarone 200mg tablet OGT SCH ×2 (07:31→20:49)
[2022-04-10] MEDS ORDERED: heparin 1,000 units/ml 10ml inj HE ONE ×4 (08:00→15:45)
[2022-04-10] MEDS ORDERED: EPOETIN ALFA-EPBX 20,000 UNIT/ML 1 ML MDV IV ONE (08:00)
[2022-04-10] MEDS ORDERED: heparin 1,000 units/ml 10ml inj IV ONE ×3 (08:00→15:45)
[2022-04-10] MEDS: NORepinephrine 8mg/ 250ml NS 250 ML IV SCH ×2 (09:20→20:15)
[2022-04-10] MEDS ORDERED: ceftazidime 1000mg in D5W 50ml 50 ML IV SCH (10:45)
[2022-04-10] MEDS: cefTAZidime inj. 1 GM in normal saline 100ml IV soln 100 ML IV SCH ×2 (11:20→20:47)
--- NOTE | 2022-04-10 12:03 | NUR ---
F/u /: Pt remains intubated tolerating TF at goal GRV WNL. Propofol remains at 14.664ml/hr providing additional 387 kcals/day. LBM 03/31 still no BM 10 days receiving routine colace, miralax, erythromycin Q8H, and PRN MoM last given 2/4 per EMR; MD aware of constipation status. Pt now transitioned to HD today from prior CVVH w/ goal of 4L off if able per RN at rounds. Will continue to follow. Recommendations: 1) Continuous TF per MD; given Propofol at 14.66 mL/hr (387 kcal/day) Vital HP at 60 mL/hr goal; to provide 1440 mL volume/day, 1440 kcal, 126 g protein, and 1204 mL water. 2) If Propofol weaned; Vital HP at 65 mL/hr goal rate to provide 1560 mL total volume/day, 1560 kcal, 137 g protein, and 1304 mL water 3) Additional water flush per physician; on HD 4) Phos-binder w/ EN on HD 5) PALB q Sunday/; Daily scaled wts 6) Routine bowel regimen; now day 10 with no BM Addendum: 04/10/22 at [address] Amended: Links added.
[2022-04-10] MEDS: piperacillin/tazo 3.375gm/50ml 50 ML IV SCH ×2 (13:33→23:05)
[2022-04-10] MEDS ORDERED: LIDOcaine 1% 30ml preserv. free vial ONE (15:18)
[2022-04-10] MEDS ORDERED: heparin 1,000unit/ml 10ml vial 10 ML ONE (15:18)
[2022-04-10] MEDS ORDERED: normal saline 1000ml 250 ML IV PRN (15:45)
--- NOTE | 2022-04-10 15:45 | NUR ---
Patient to IR for TDC placement via bed with x2 RN and x1 RT.
--- NOTE | 2022-04-10 17:00 | NUR ---
Patient was given fleet enema per Dr. Hudson order.
--- NOTE | 2022-04-10 18:24 | NUR ---
Problems reprioritized. Patient report given, questions answered & plan of care reviewed with Aditya RN.
[2022-04-10] MEDS: polyethylene glycol 3350 17gm powd pack OGT SCH (20:46)
[2022-04-10] MEDS: insulin glargine (Lantus) pen - multi-dose SQ SCH (21:05)
[2022-04-11] VITALS (38 sets, daily range): BP systolic 95–145; BP diastolic 42–58
[2022-04-11] MEDS: erythromycin ethylsuccinate 200mg/5ml 200ml bottle OGT SCH ×4 (00:54→23:53)
[2022-04-11] MEDS: insulin regular, human U-100 3ml vial - multi-dose SQ SCH ×4 (02:38→20:17)
[2022-04-11] MEDS: methylPREDNISolone sod succ/PF 40mg inj. IV SCH ×4 (02:58→19:25)
[2022-04-11] MEDS: mineral oil/petrolatum ophthal oint EACHEYE SCH ×4 (02:58→19:25)
[2022-04-11 02:59] LABS: BASOPHILS % (AUTO) 0.1 % (0-1); EOSINOPHILS % (AUTO) 0 % (0-6); LYMPHOCYTES # (AUTO) 0.2 X10'3 (1.1-4.8); LYMPHOCYTES % (AUTO) 1.9 % (21-51); MEAN CORPUSCULAR HEMOGLOBIN 28.9 PG (27.0-31.0); MEAN CORPUSCULAR HGB CONC 31.4 g/dL (33.0-36.5); MEAN CORPUSCULAR VOLUME 91.9 FL (78-98); MEAN PLATELET VOLUME 7.8 FL (7.4-10.4); MONOCYTES # (AUTO) 0.5 X10'3 (0-0.9); MONOCYTES % (AUTO) 4.9 % (2-12); NEUTROPHILS # (AUTO) 9.3 X10'3 (1.8-7.7); NEUTROPHILS % (AUTO) 93.1 % (42-75); PLATELET COUNT 130 X10'3 (140-440); RED CELL DISTRIBUTION WIDTH 16.1 % (11.5-14.5)
[2022-04-11 03:03] LABS: HEMOGLOBIN 6.9 g/dl (12.0-16.0)
[2022-04-11] MEDS: ipratropium/albuterol 3ml nebule NEB SCH ×6 (03:04→23:03)
[2022-04-11] MEDS: FENTANYL-0.9 % NACL/PF 100 ML IV SCH ×2 (03:08→19:20)
[2022-04-11 03:09] LABS: ALANINE AMINOTRANSFERASE 75 U/L (12-78); ALBUMIN 2.8 G/DL (3.4-5.0); ALKALINE PHOSPHATASE 97 IU/L (46-116); ANION GAP 11 (8-16); ASPARTATE AMINO TRANSFERASE 35 U/L (10-37); BILIRUBIN,TOTAL 0.7 MG/DL (0.1-1.0); BLOOD UREA NITROGEN 51 MG/DL (7-18); BUN/CREATININE RATIO 25.1 (6.6-38.0); CALCIUM 8.6 MG/DL (8.5-10.1); CHLORIDE 98 MMOL/L (99-107); CREATININE 2.03 MG/DL (0.40-0.90); GLUCOSE 192 MG/DL (70-104); MAGNESIUM 2.2 MG/DL (1.5-2.4); PHOSPHORUS 4.2 MG/DL (2.3-4.5); POTASSIUM 4.1 MMOL/L (3.5-5.1); SODIUM 135 MMOL/L (135-145); TOTAL CARBON DIOXIDE 26.5 MMOL/L (24-32); TOTAL PROTEIN 5.7 G/DL (6.4-8.2); eGFR 25 ML/MIN
[2022-04-11] MEDS: metoprolol tartrate 1mg/ml inj IV SCH ×6 (03:09→23:48)
--- NOTE | 2022-04-11 03:22 | NUR ---
Called Dr. Hudson regarding critical H&H. Orders received.
[2022-04-11 03:23] LABS: ABG BASE EXCESS -1.5 mmol/L (-2.0-2.0); ABG HCO3 24.6 mmol/L (22.0-26.0); ABG OXYGEN SATURATION 91.3 % (94-97); ABG PCO2 (T) 48.8 mmHg (32.0-45.0); ALLEN'S TEST Modified; FCOHb 0.8 % (0.0-3.9); FMetHb 0.3 % (0.0-1.5); FO2Hb 90.3 % (94-97); PATIENT TEMPERATURE 37.3; PEEP 10 cm H2O; RESPIRATORY RATE 20 b/min; TIDAL VOLUME 400 mL; TOTAL HEMOGLOBIN 7.7 G/dl (12.0-16.0)
[2022-04-11] MEDS: propofol 1000mg/100ml bottle 100 ML IV SCH ×3 (03:27→16:10)
--- NOTE | 2022-04-11 04:55 | NUR ---
Called Dr. Hudson regarding bladder scan of 575ml. Order received to place Barnett catheter.
[2022-04-11] MEDS: amiodarone 200mg tablet OGT SCH ×2 (07:50→19:26)
[2022-04-11] MEDS: docusate sodium 100mg/10ml UD cup OGT SCH ×2 (07:51→19:25)
[2022-04-11] MEDS: cefTAZidime inj. 1 GM in normal saline 100ml IV soln 100 ML IV SCH ×2 (07:51→19:28)
[2022-04-11] MEDS: NORepinephrine 8mg/ 250ml NS 250 ML IV SCH ×2 (08:22→18:05)
[2022-04-11] MEDS: pantoprazole 40MG/NS 100ML BAG 100 ML IV SCH ×2 (09:12→19:27)
--- NOTE | 2022-04-11 09:32 | NUR ---
Dr. Hudson did a quick rounding. It was discussed that the patient still has not had a bowel movement, he stated okay to do another enema.
[2022-04-11] MEDS: EPOETIN ALFA-EPBX 20,000 UNIT/ML 1 ML MDV SQ SCH (10:55)
[2022-04-11] MEDS: piperacillin/tazo 3.375gm/50ml 50 ML IV SCH ×2 (10:59→23:48)
[2022-04-11] MEDS ORDERED: EPOETIN ALFA-EPBX 20,000 UNIT/ML 1 ML MDV IV ONE (11:10)
[2022-04-11] MEDS ORDERED: heparin 1,000 units/ml 10ml inj IV ONE (11:10)
[2022-04-11] MEDS ORDERED: heparin 1,000 units/ml 10ml inj HE ONE ×2 (11:15→11:40)
--- NOTE | 2022-04-11 11:39 | NUR ---
Rounds note: Dr. Gamboa joined on rounds for this patient and it was agreed that she will have dialysis today again. Dr. Hudson stated that we can continue to wean as tolerated. Once the patient is at 40% Fio2 we can begin to wean the PEEP. We will redraw a Hemogram at 1200 to see what the patient's H/H is now.
[2022-04-11 12:11] LABS: HEMATOCRIT 24.2 % (35.0-45.0); HEMOGLOBIN 7.8 g/dl (12.0-16.0); MEAN CORPUSCULAR HEMOGLOBIN 29.5 PG (27.0-31.0); MEAN CORPUSCULAR HGB CONC 32.2 g/dL (33.0-36.5); MEAN CORPUSCULAR VOLUME 91.8 FL (78-98); PLATELET COUNT 107 X10'3 (140-440); RED BLOOD COUNT 2.64 X10'6 (4.20-5.60); RED CELL DISTRIBUTION WIDTH 15.7 % (11.5-14.5); WHITE BLOOD COUNT 9.5 X10'3 (4.5-11.0)
--- NOTE | 2022-04-11 18:16 | NUR ---
Problems reprioritized. Patient report given, questions answered & plan of care reviewed with Aditya RN.
[2022-04-11] MEDS: magnesium hydroxide 30ml (MOM) UD suspension OGT PRN (19:26)
[2022-04-11] MEDS: polyethylene glycol 3350 17gm powd pack OGT SCH (19:27)
[2022-04-11] MEDS: insulin glargine (Lantus) pen - multi-dose SQ SCH (20:18)
[2022-04-12] VITALS (31 sets, daily range): BP systolic 96–157; BP diastolic 40–84
[2022-04-12] MEDS: methylPREDNISolone sod succ/PF 40mg inj. IV SCH ×4 (02:09→20:09)
[2022-04-12] MEDS: mineral oil/petrolatum ophthal oint EACHEYE SCH ×4 (02:09→20:00)
[2022-04-12] MEDS: propofol 1000mg/100ml bottle 100 ML IV SCH (02:11)
[2022-04-12] MEDS: insulin regular, human U-100 3ml vial - multi-dose SQ SCH ×4 (02:51→20:33)
[2022-04-12 02:55] LABS: BASOPHILS % (AUTO) 0.2 % (0-1); EOSINOPHILS % (AUTO) 0.1 % (0-6); HEMATOCRIT 23.5 % (35.0-45.0); HEMOGLOBIN 7.7 g/dl (12.0-16.0); LYMPHOCYTES # (AUTO) 0.2 X10'3 (1.1-4.8); LYMPHOCYTES % (AUTO) 2.2 % (21-51); MEAN CORPUSCULAR HEMOGLOBIN 29.9 PG (27.0-31.0); MEAN CORPUSCULAR HGB CONC 32.9 g/dL (33.0-36.5); MEAN CORPUSCULAR VOLUME 91.1 FL (78-98); MEAN PLATELET VOLUME 8.6 FL (7.4-10.4); MONOCYTES # (AUTO) 0.7 X10'3 (0-0.9); NEUTROPHILS # (AUTO) 8.4 X10'3 (1.8-7.7); NEUTROPHILS % (AUTO) 89.5 % (42-75); PLATELET COUNT 92 X10'3 (140-440); RED BLOOD COUNT 2.58 X10'6 (4.20-5.60); RED CELL DISTRIBUTION WIDTH 15.9 % (11.5-14.5); WHITE BLOOD COUNT 9.3 X10'3 (4.5-11.0)
[2022-04-12 03:08] LABS: ALANINE AMINOTRANSFERASE 79 U/L (12-78); ALBUMIN 2.8 G/DL (3.4-5.0); ALKALINE PHOSPHATASE 90 IU/L (46-116); ANION GAP 8 (8-16); ASPARTATE AMINO TRANSFERASE 27 U/L (10-37); BILIRUBIN,TOTAL 0.6 MG/DL (0.1-1.0); BLOOD UREA NITROGEN 47 MG/DL (7-18); BUN/CREATININE RATIO 23.4 (6.6-38.0); CALCIUM 8.8 MG/DL (8.5-10.1); CHLORIDE 98 MMOL/L (99-107); CREATININE 2.01 MG/DL (0.40-0.90); GLUCOSE 147 MG/DL (70-104); MAGNESIUM 2.2 MG/DL (1.5-2.4); PHOSPHORUS 3.3 MG/DL (2.3-4.5); POTASSIUM 4.2 MMOL/L (3.5-5.1); SODIUM 136 MMOL/L (135-145); TOTAL CARBON DIOXIDE 29.9 MMOL/L (24-32); TOTAL PROTEIN 5.7 G/DL (6.4-8.2); eGFR 25 ML/MIN
[2022-04-12] MEDS: ipratropium/albuterol 3ml nebule NEB SCH ×6 (03:14→23:14)
[2022-04-12 03:38] LABS: ABG BASE EXCESS 0.3 mmol/L (-2.0-2.0); ABG OXYGEN SATURATION 90.9 % (94-97); ABG PO2 (T) 61.5 mmHg (75.0-100.0); ALLEN'S TEST Modified; FCOHb 0.4 % (0.0-3.9); FMetHb 0.2 % (0.0-1.5); FO2Hb 90.4 % (94-97); PATIENT TEMPERATURE 37.1; PEEP 10 cm H2O; RESPIRATORY RATE 20 b/min; TIDAL VOLUME 400 mL; TOTAL HEMOGLOBIN 8.8 G/dl (12.0-16.0)
[2022-04-12] MEDS: metoprolol tartrate 1mg/ml inj IV SCH ×5 (03:54→20:00)
[2022-04-12] MEDS: NORepinephrine 8mg/ 250ml NS 250 ML IV SCH ×2 (04:19→15:55)
[2022-04-12] MEDS: pantoprazole 40MG/NS 100ML BAG 100 ML IV SCH ×2 (08:07→20:08)
[2022-04-12] MEDS: docusate sodium 100mg/10ml UD cup OGT SCH ×2 (08:08→20:09)
[2022-04-12] MEDS: amiodarone 200mg tablet OGT SCH ×2 (08:08→20:09)
[2022-04-12] MEDS: erythromycin ethylsuccinate 200mg/5ml 200ml bottle OGT SCH ×3 (08:09→23:35)
[2022-04-12] MEDS: cefTAZidime inj. 1 GM in normal saline 100ml IV soln 100 ML IV SCH ×2 (08:41→20:08)
[2022-04-12] MEDS ORDERED: heparin 1,000unit/ml 10ml vial 10 ML IV ONE (08:55)
[2022-04-12] MEDS ORDERED: albumin (human) 25% 100ml IV 100 ML IV PRN (08:55)
[2022-04-12] MEDS ORDERED: heparin 1,000 units/ml 10ml inj IV ONE (08:55)
[2022-04-12] MEDS ORDERED: heparin 1,000 units/ml 10ml inj HE ONE ×2 (09:00→09:25)
--- NOTE | 2022-04-12 14:14 | NUR ---
HD run completed. 3.5 L off.
--- NOTE | 2022-04-12 14:36 | NUR ---
[place] OG tube discontinued. 16 Fr salem sup placed in right nares.
[2022-04-12 15:38] LABS: ABG HCO3 29.4 mmol/L (22.0-26.0); ABG OXYGEN SATURATION 94.8 % (94-97); ABG PCO2 (T) 42.9 mmHg (32.0-45.0); ABG PO2 (T) 69.1 mmHg (75.0-100.0); ALLEN'S TEST POSITIVE; FCOHb 0.1 % (0.0-3.9); FMetHb 0.1 % (0.0-1.5); FO2Hb 94.6 % (94-97); PEEP 7 cm H2O; TOTAL HEMOGLOBIN 10.1 G/dl (12.0-16.0)
--- NOTE | 2022-04-12 18:13 | NUR ---
Problems reprioritized. Patient report given, questions answered & plan of care reviewed with Aditya RN.
[2022-04-12] MEDS: polyethylene glycol 3350 17gm powd pack OGT SCH (20:09)
[2022-04-12] MEDS: insulin glargine (Lantus) pen - multi-dose SQ SCH (20:34)
[2022-04-13] VITALS (24 sets, daily range): BP systolic 130–167; BP diastolic 28–66
[2022-04-13] MEDS: mineral oil/petrolatum ophthal oint EACHEYE SCH ×2 (01:35→08:00)
[2022-04-13] MEDS: NORepinephrine 8mg/ 250ml NS 250 ML IV SCH (01:36)
[2022-04-13] MEDS: methylPREDNISolone sod succ/PF 40mg inj. IV SCH ×4 (02:00→19:42)
[2022-04-13 02:52] LABS: BASOPHILS % (AUTO) 0.4 % (0-1); EOSINOPHILS % (AUTO) 0 % (0-6); HEMATOCRIT 26.2 % (35.0-45.0); HEMOGLOBIN 8.4 g/dl (12.0-16.0); LYMPHOCYTES # (AUTO) 0.3 X10'3 (1.1-4.8); LYMPHOCYTES % (AUTO) 2.6 % (21-51); MEAN CORPUSCULAR HEMOGLOBIN 29.5 PG (27.0-31.0); MEAN CORPUSCULAR HGB CONC 32.1 g/dL (33.0-36.5); MEAN CORPUSCULAR VOLUME 92.2 FL (78-98); MEAN PLATELET VOLUME 8.7 FL (7.4-10.4); MONOCYTES # (AUTO) 0.5 X10'3 (0-0.9); MONOCYTES % (AUTO) 5.5 % (2-12); NEUTROPHILS # (AUTO) 8.9 X10'3 (1.8-7.7); NEUTROPHILS % (AUTO) 91.5 % (42-75); PLATELET COUNT 78 X10'3 (140-440); RED BLOOD COUNT 2.84 X10'6 (4.20-5.60); WHITE BLOOD COUNT 9.7 X10'3 (4.5-11.0)
[2022-04-13] MEDS: ipratropium/albuterol 3ml nebule NEB SCH ×6 (03:01→23:30)
[2022-04-13 03:14] LABS: ALANINE AMINOTRANSFERASE 89 U/L (12-78); ALBUMIN 2.8 G/DL (3.4-5.0); ALBUMIN/GLOBULIN RATIO 0.9 (1.1-1.5); ALKALINE PHOSPHATASE 105 IU/L (46-116); ANION GAP 9 (8-16); ASPARTATE AMINO TRANSFERASE 29 U/L (10-37); BILIRUBIN,TOTAL 0.7 MG/DL (0.1-1.0); BLOOD UREA NITROGEN 49 MG/DL (7-18); CALCIUM 8.7 MG/DL (8.5-10.1); CHLORIDE 99 MMOL/L (99-107); CREATININE 2.13 MG/DL (0.40-0.90); GLUCOSE 172 MG/DL (70-104); MAGNESIUM 2.3 MG/DL (1.5-2.4); PHOSPHORUS 3.7 MG/DL (2.3-4.5); POTASSIUM 4.5 MMOL/L (3.5-5.1); SODIUM 137 MMOL/L (135-145); TOTAL CARBON DIOXIDE 29.1 MMOL/L (24-32); eGFR 24 ML/MIN
[2022-04-13] MEDS: metoprolol tartrate 1mg/ml inj IV SCH ×6 (04:00→19:41)
[2022-04-13] MEDS: insulin regular, human U-100 3ml vial - multi-dose SQ SCH ×4 (04:45→20:34)
[2022-04-13] MEDS: cefTAZidime inj. 1 GM in normal saline 100ml IV soln 100 ML IV SCH ×2 (08:10→19:41)
[2022-04-13] MEDS: amiodarone 200mg tablet OGT SCH (08:10)
[2022-04-13] MEDS: docusate sodium 100mg/10ml UD cup OGT SCH (08:10)
[2022-04-13] MEDS: magnesium hydroxide 30ml (MOM) UD suspension OGT PRN (08:10)
[2022-04-13] MEDS: pantoprazole 40MG/NS 100ML BAG 100 ML IV SCH ×2 (08:10→19:40)
[2022-04-13] MEDS: erythromycin ethylsuccinate 200mg/5ml 200ml bottle OGT SCH ×2 (08:11→15:39)
[2022-04-13 09:03] LABS: HBSAG SCREEN Negative (Negative)
--- NOTE | 2022-04-13 10:38 | NUR ---
Orders to D/C central line once hand PIV initiated; PICC nurse paged.
--- NOTE | 2022-04-13 11:01 | NUR ---
Reassessment: Pt extubated 04/12. Prior to extubation OGT was removed and an NGT was placed. Pt tolerating TF at goal rate with GRV WNL. Recommend TF change to Nepro with 35 mL/hr goal rate in view of extubation, d/w RN and updated EMR. Pt s/p BSS this morning with ST recs pureed food with nectar thick liquids, pending first meal since diet advancement. LBM 2/ x 4 per I&O. Pt continues receiving routine and PRN bowel care. Will continue to follow closely. Recommendations: 1) Continue pureed diet with NTL per ST recs 2) Continuous TF via NGT using Nepro 1.8 with 35 mL/hr goal to provide 840 mL volume/day, 1512 kcal, 68 g protein, and 681 mL water. 3) Additional water flush per physician; on HD 4) Monitor need for Phos-binder given HD 5) PALB q Sunday/; Daily scaled wts 6) Routine and PRN bowel regimen given constipation 7) Continue NGTF until pt able to consistently tolerate adequate PO intake Addendum: 04/13/22 at [address] Amended: Links added.
[2022-04-13] MEDS: FENTANYL-0.9 % NACL/PF 100 ML IV SCH (11:40)
[2022-04-13] MEDS: EPOETIN ALFA-EPBX 20,000 UNIT/ML 1 ML MDV SQ SCH (12:10)
[2022-04-13] MEDS: HYDROmorphone inj. 0.5 MG/0.5 ML DISP.SYRIN IV PRN ×2 (12:47→19:42)
[2022-04-13] MEDS ORDERED: heparin 1,000 units/ml 10ml inj HE ONE (16:15)
[2022-04-13] MEDS ORDERED: acetaminophen 325mg/10.15ml oral unit dose solution NG PRN (18:15)
--- NOTE | 2022-04-13 18:18 | NUR ---
Problems reprioritized. Patient report given, questions answered & plan of care reviewed with Genet ALVAREZ.
[2022-04-13] MEDS ORDERED: DEXTROSE 15 GM of carb/4 tabs (each vial/BOTTLE has 4 tablets) NG PRN ×2 (18:21→18:37)
[2022-04-13] MEDS ORDERED: magnesium hydroxide 30ml (MOM) UD suspension NG PRN (18:24)
[2022-04-13] MEDS ORDERED: mag hydrox/Alum hydrox/simeth 30ml oral suspension NG PRN (18:24)
[2022-04-13] MEDS: docusate sodium 100mg/10ml UD cup NG SCH (19:41)
[2022-04-13] MEDS: amiodarone 200mg tablet NG SCH (19:42)
[2022-04-13] MEDS: insulin glargine (Lantus) pen - multi-dose SQ SCH (20:35)
[2022-04-13] MEDS: polyethylene glycol 3350 17gm powd pack NG SCH (21:13)
[2022-04-13] MEDS: HYDROmorphone 1 mg/ml syringe IV PRN (21:13)
[2022-04-14] VITALS (24 sets, daily range): BP systolic 85–174; BP diastolic 40–75
[2022-04-14] MEDS: metoprolol tartrate 1mg/ml inj IV SCH ×6 (01:16→19:21)
[2022-04-14] MEDS: methylPREDNISolone sod succ/PF 40mg inj. IV SCH ×4 (01:16→19:20)
[2022-04-14] MEDS: erythromycin ethylsuccinate 200mg/5ml 200ml bottle NG SCH ×3 (01:17→15:49)
[2022-04-14] MEDS: HYDROmorphone 1 mg/ml syringe IV PRN ×2 (01:18→21:56)
[2022-04-14] MEDS: insulin regular, human U-100 3ml vial - multi-dose SQ SCH ×4 (03:01→20:03)
[2022-04-14] MEDS: ipratropium/albuterol 3ml nebule NEB SCH ×6 (03:23→23:31)
[2022-04-14 05:19] LABS: BASOPHILS % (AUTO) 0.1 % (0-1); EOSINOPHILS % (AUTO) 0 % (0-6); HEMATOCRIT 31.7 % (35.0-45.0); LYMPHOCYTES # (AUTO) 0.3 X10'3 (1.1-4.8); LYMPHOCYTES % (AUTO) 1.9 % (21-51); MEAN CORPUSCULAR HEMOGLOBIN 28.9 PG (27.0-31.0); MEAN CORPUSCULAR HGB CONC 31.6 g/dL (33.0-36.5); MEAN CORPUSCULAR VOLUME 91.4 FL (78-98); MEAN PLATELET VOLUME 9.3 FL (7.4-10.4); MONOCYTES # (AUTO) 0.6 X10'3 (0-0.9); MONOCYTES % (AUTO) 3.7 % (2-12); NEUTROPHILS # (AUTO) 14.5 X10'3 (1.8-7.7); NEUTROPHILS % (AUTO) 94.3 % (42-75); PLATELET COUNT 83 X10'3 (140-440); RED BLOOD COUNT 3.47 X10'6 (4.20-5.60); RED CELL DISTRIBUTION WIDTH 15.9 % (11.5-14.5); WHITE BLOOD COUNT 15.4 X10'3 (4.5-11.0)
[2022-04-14 05:31] LABS: ALANINE AMINOTRANSFERASE 98 U/L (12-78); ALBUMIN 2.8 G/DL (3.4-5.0); ALBUMIN/GLOBULIN RATIO 0.8 (1.1-1.5); ALKALINE PHOSPHATASE 123 IU/L (46-116); ANION GAP 12 (8-16); BLOOD UREA NITROGEN 98 MG/DL (7-18); BUN/CREATININE RATIO 28.7 (6.6-38.0); CALCIUM 9.5 MG/DL (8.5-10.1); CHLORIDE 95 MMOL/L (99-107); CREATININE 3.42 MG/DL (0.40-0.90); GLUCOSE 137 MG/DL (70-104); MAGNESIUM 3.8 MG/DL (1.5-2.4); PHOSPHORUS 4.5 MG/DL (2.3-4.5); POTASSIUM 5.5 MMOL/L (3.5-5.1); SODIUM 133 MMOL/L (135-145); TOTAL CARBON DIOXIDE 25.7 MMOL/L (24-32); TOTAL PROTEIN 6.4 G/DL (6.4-8.2); eGFR 14 ML/MIN
[2022-04-14 05:41] LABS: ASPARTATE AMINO TRANSFERASE 33 U/L (10-37)
[2022-04-14] MEDS: pantoprazole 40MG/NS 100ML BAG 100 ML IV SCH ×2 (07:32→19:21)
[2022-04-14] MEDS: cefTAZidime inj. 1 GM in normal saline 100ml IV soln 100 ML IV SCH ×2 (07:35→19:21)
[2022-04-14] MEDS: docusate sodium 100mg/10ml UD cup NG SCH ×2 (07:35→19:21)
[2022-04-14] MEDS: amiodarone 200mg tablet NG SCH ×2 (07:38→19:21)
[2022-04-14] MEDS ORDERED: heparin 1,000 units/ml 10ml inj IV ONE ×2 (07:40→08:00)
[2022-04-14] MEDS ORDERED: heparin 1,000 units/ml 10ml inj HE ONE ×2 (07:40→08:00)
[2022-04-14] MEDS ORDERED: EPOETIN ALFA-EPBX 20,000 UNIT/ML 1 ML MDV IV ONE ×2 (07:40→08:00)
[2022-04-14] MEDS ORDERED: heparin 1,000unit/ml 10ml vial 10 ML IV ONE ×2 (07:40→08:00)
[2022-04-14] MEDS: HYDROmorphone inj. 0.5 MG/0.5 ML DISP.SYRIN IV PRN ×2 (07:40→18:00)
[2022-04-14] MEDS ORDERED: albumin (human) 25% 100ml IV 100 ML IV PRN (08:00)
--- NOTE | 2022-04-14 10:15 | NUR ---
Discussed during rounds patient's increased oxygen requirements and increased work of breathing since extubation. Patient with difficulty bringing up secretions, remains weak, and continues to have a large abdomen making it difficult to sit up. Per Dr. Hudson, continue with scheduled and PRN laxatives (patient's last BM x2 days ago), plan for dialysis treatment and possibly speak with patient and about possible need for reintubation/trach/PEG if oxygen requirements increase.
--- NOTE | 2022-04-14 18:16 | NUR ---
Problems reprioritized. Patient report given, questions answered & plan of care reviewed with Genet ALVAREZ.
[2022-04-14] MEDS: insulin glargine (Lantus) pen - multi-dose SQ SCH (20:04)
[2022-04-14] MEDS: polyethylene glycol 3350 17gm powd pack NG SCH (21:50)
[2022-04-15] VITALS (25 sets, daily range): BP systolic 94–164; BP diastolic 30–57
[2022-04-15] MEDS: metoprolol tartrate 1mg/ml inj IV SCH ×6 (00:12→20:19)
[2022-04-15] MEDS: erythromycin ethylsuccinate 200mg/5ml 200ml bottle NG SCH ×3 (00:12→16:23)
[2022-04-15] MEDS: insulin regular, human U-100 3ml vial - multi-dose SQ SCH ×4 (02:08→20:45)
[2022-04-15] MEDS: methylPREDNISolone sod succ/PF 40mg inj. IV SCH ×4 (02:09→20:19)
[2022-04-15] MEDS: ipratropium/albuterol 3ml nebule NEB SCH ×6 (03:42→22:35)
[2022-04-15] MEDS: HYDROmorphone 1 mg/ml syringe IV PRN ×2 (04:41→09:34)
[2022-04-15 05:54] LABS: BASOPHILS % (AUTO) 0.1 % (0-1); EOSINOPHILS % (AUTO) 0 % (0-6); HEMOGLOBIN 9.9 g/dl (12.0-16.0); LYMPHOCYTES # (AUTO) 0.3 X10'3 (1.1-4.8); LYMPHOCYTES % (AUTO) 1.4 % (21-51); MEAN CORPUSCULAR HEMOGLOBIN 29.1 PG (27.0-31.0); MEAN CORPUSCULAR VOLUME 90.9 FL (78-98); MEAN PLATELET VOLUME 9.3 FL (7.4-10.4); MONOCYTES # (AUTO) 0.8 X10'3 (0-0.9); MONOCYTES % (AUTO) 3.9 % (2-12); NEUTROPHILS # (AUTO) 18.5 X10'3 (1.8-7.7); NEUTROPHILS % (AUTO) 94.6 % (42-75); PLATELET COUNT 83 X10'3 (140-440); RED BLOOD COUNT 3.41 X10'6 (4.20-5.60); RED CELL DISTRIBUTION WIDTH 15.8 % (11.5-14.5); WHITE BLOOD COUNT 19.5 X10'3 (4.5-11.0)
[2022-04-15 06:10] LABS: ALANINE AMINOTRANSFERASE 87 U/L (12-78); ALBUMIN 2.6 G/DL (3.4-5.0); ALBUMIN/GLOBULIN RATIO 0.7 (1.1-1.5); ALKALINE PHOSPHATASE 138 IU/L (46-116); ANION GAP 15 (8-16); ASPARTATE AMINO TRANSFERASE 33 U/L (10-37); BILIRUBIN,TOTAL 1.1 MG/DL (0.1-1.0); BLOOD UREA NITROGEN 79 MG/DL (7-18); BUN/CREATININE RATIO 25.8 (6.6-38.0); CALCIUM 9.4 MG/DL (8.5-10.1); CHLORIDE 97 MMOL/L (99-107); CREATININE 3.06 MG/DL (0.40-0.90); GLUCOSE 78 MG/DL (70-104); PHOSPHORUS 5.2 MG/DL (2.3-4.5); SODIUM 138 MMOL/L (135-145); TOTAL CARBON DIOXIDE 26.5 MMOL/L (24-32); TOTAL PROTEIN 6.3 G/DL (6.4-8.2); eGFR 16 ML/MIN
[2022-04-15 06:17] LABS: MAGNESIUM 4.5 MG/DL (1.5-2.4)
--- NOTE | 2022-04-15 07:00 | NUR ---
Patient in room CICU 2011. I have received report from Genet ALVAREZ and had the opportunity to ask questions and assume patient care. To semi fowlers in bed, HOB at 30 degrees. 02/HF/45LPM/65% FIO2. Respirations coarse, audible with naked ear. pt nods head in acknowledgement when nurse introduces herself but will not meaningfully answer any other questions with yes/no, stares blankly. breathing guppy in nature. RT arrived at room and breathing tx administered. safety measures in place.
[2022-04-15 07:39] LABS: ABG BASE EXCESS -2.3 mmol/L (-2.0-2.0); ABG HCO3 24.8 mmol/L (22.0-26.0); ABG OXYGEN SATURATION 90.5 % (94-97); ABG PO2 (T) 65.1 mmHg (75.0-100.0); ALLEN'S TEST POSITIVE; FCOHb 0.5 % (0.0-3.9); FLOW 50 L/min; FMetHb 0.1 % (0.0-1.5); PATIENT TEMPERATURE 36.7; TOTAL HEMOGLOBIN 11.1 G/dl (12.0-16.0)
--- NOTE | 2022-04-15 07:44 | NUR ---
PH low on ABG. pt switched to Bipap by RT. CXR being completed.
[2022-04-15] MEDS ORDERED: rocuronium 10mg/ml inj IV ONE ×2 (08:00→10:10)
[2022-04-15] MEDS ORDERED: etomidate 2mg/ml inj. ONE (08:00)
[2022-04-15 08:18] LABS: HYPOCHROMASIA 1+; PLATELET ESTIMATE DECREASED; TOTAL CELLS COUNTED 100
[2022-04-15] MEDS: docusate sodium 100mg/10ml UD cup NG SCH ×2 (08:23→20:19)
[2022-04-15] MEDS: amiodarone 200mg tablet NG SCH ×2 (08:24→20:19)
[2022-04-15] MEDS: cefTAZidime inj. 1 GM in normal saline 100ml IV soln 100 ML IV SCH ×2 (08:26→20:18)
[2022-04-15] MEDS: pantoprazole 40MG/NS 100ML BAG 100 ML IV SCH ×2 (08:26→20:18)
--- NOTE | 2022-04-15 10:04 | NUR ---
Dr. Hudson to see pt. Dr. Hudson spoke with , reviewed pt health status. plan: intubate. prop, etomidate, xiomara, fentanyl meds to be prepared. Addendum: 04/15/22 at 1005 by Rosaura Salas RN new order for lactulose Q4 until BM
[2022-04-15] MEDS ORDERED: fentaNYL/PF 50MCG/1 ML 2ML syringe IV ONE (10:10)
[2022-04-15] MEDS ORDERED: etomidate 2mg/ml inj. IV ONE (10:10)
[2022-04-15] MEDS ORDERED: propofol 1000mg/100ml bottle 100 ML IV SCH (10:10)
[2022-04-15] MEDS: EPOETIN ALFA-EPBX 20,000 UNIT/ML 1 ML MDV SQ SCH (10:55)
--- NOTE | 2022-04-15 12:04 | NUR ---
Pt intubated without issue at 1115. Central line placed to right subclavian after the attempt on the left side unsuccessful. CXR taken. tube in 3.2 cm.
[2022-04-15] MEDS: FENTANYL-0.9 % NACL/PF 100 ML IV PRN (12:12)
[2022-04-15] MEDS: propofol 1000mg/100ml bottle 100 ML IV SCH (12:13)
[2022-04-15 13:25] LABS: ABG BASE EXCESS -5.6 mmol/L (-2.0-2.0); ABG HCO3 23.4 mmol/L (22.0-26.0); ABG OXYGEN SATURATION 89.7 % (94-97); ABG PCO2 (T) 63.2 mmHg (32.0-45.0); ABG PO2 (T) 69.8 mmHg (75.0-100.0); ALLEN'S TEST POSITIVE; FCOHb 0.6 % (0.0-3.9); FMetHb 0.2 % (0.0-1.5); PATIENT TEMPERATURE 36.9; PEEP 10 cm H2O; RESPIRATORY RATE 20 b/min; TIDAL VOLUME 300 mL; TOTAL HEMOGLOBIN 11.6 G/dl (12.0-16.0)
[2022-04-15] MEDS: lactulose 20gm/30ml cup NG SCH ×3 (14:01→20:19)
--- NOTE | 2022-04-15 17:50 | NUR ---
Student documentation: I have reviewed and agree with all interventions, assessments performed and documented by Susie ZAVALA. Student Medication Administration: For this medication-pass time frame, all medication were reviewed, dispensed, administered and documented per hospital policy by Susie ZAVALA.
--- NOTE | 2022-04-15 18:28 | NUR ---
Problems reprioritized. Patient report given, questions answered & plan of care reviewed with Genet ALVAREZ.
[2022-04-15] MEDS: insulin glargine (Lantus) pen - multi-dose SQ SCH (20:46)
[2022-04-15] MEDS: polyethylene glycol 3350 17gm powd pack NG SCH (21:28)
[2022-04-16] VITALS (28 sets, daily range): BP systolic 47–161; BP diastolic 27–54
[2022-04-16] MEDS: erythromycin ethylsuccinate 200mg/5ml 200ml bottle NG SCH ×2 (00:03→09:00)
[2022-04-16] MEDS: lactulose 20gm/30ml cup NG SCH ×4 (00:04→12:00)
[2022-04-16] MEDS: insulin regular, human U-100 3ml vial - multi-dose SQ SCH ×2 (02:31→10:07)
[2022-04-16] MEDS: methylPREDNISolone sod succ/PF 40mg inj. IV SCH ×3 (02:31→13:43)
[2022-04-16 02:53] LABS: BASOPHILS # (AUTO) 0.3 X10'3 (0-0.2); EOSINOPHILS % (AUTO) 0 % (0-6); HEMATOCRIT 32.5 % (35.0-45.0); HEMOGLOBIN 10.1 g/dl (12.0-16.0); LYMPHOCYTES # (AUTO) 0.2 X10'3 (1.1-4.8); LYMPHOCYTES % (AUTO) 0.8 % (21-51); MEAN CORPUSCULAR HEMOGLOBIN 28.8 PG (27.0-31.0); MEAN CORPUSCULAR HGB CONC 31.1 g/dL (33.0-36.5); MEAN CORPUSCULAR VOLUME 92.6 FL (78-98); MEAN PLATELET VOLUME 10.1 FL (7.4-10.4); MONOCYTES # (AUTO) 0.8 X10'3 (0-0.9); NEUTROPHILS # (AUTO) 24.3 X10'3 (1.8-7.7); NEUTROPHILS % (AUTO) 95.2 % (42-75); RED BLOOD COUNT 3.51 X10'6 (4.20-5.60); RED CELL DISTRIBUTION WIDTH 15.7 % (11.5-14.5)
[2022-04-16 03:04] LABS: WHITE BLOOD COUNT 25.5 X10'3 (4.5-11.0)
[2022-04-16 03:05] LABS: PLATELET COUNT 96 X10'3 (140-440)
[2022-04-16] MEDS: NORepinephrine 8mg/ 250ml NS 250 ML IV PRN ×5 (03:05→14:29)
[2022-04-16 03:18] LABS: ALANINE AMINOTRANSFERASE 74 U/L (12-78); ALBUMIN 2.4 G/DL (3.4-5.0); ALBUMIN/GLOBULIN RATIO 0.6 (1.1-1.5); ALKALINE PHOSPHATASE 137 IU/L (46-116); ANION GAP 18 (8-16); ASPARTATE AMINO TRANSFERASE 24 U/L (10-37); BILIRUBIN,TOTAL 1.2 MG/DL (0.1-1.0); BLOOD UREA NITROGEN 112 MG/DL (7-18); BUN/CREATININE RATIO 26.5 (6.6-38.0); CALCIUM 9.5 MG/DL (8.5-10.1); CHLORIDE 94 MMOL/L (99-107); CREATININE 4.22 MG/DL (0.40-0.90); GLUCOSE 150 MG/DL (70-104); POTASSIUM 5.5 MMOL/L (3.5-5.1); SODIUM 135 MMOL/L (135-145); TOTAL CARBON DIOXIDE 23.4 MMOL/L (24-32); TOTAL PROTEIN 6.1 G/DL (6.4-8.2); TRIGLYCERIDES 230 MG/DL (20-135); eGFR 11 ML/MIN
[2022-04-16] MEDS: ipratropium/albuterol 3ml nebule NEB SCH ×4 (03:18→15:00)
[2022-04-16 03:19] LABS: PHOSPHORUS 10.9 MG/DL (2.3-4.5)
[2022-04-16 03:24] LABS: MAGNESIUM 6.7 MG/DL (1.5-2.4)
[2022-04-16 03:49] LABS: ABG BASE EXCESS -8.1 mmol/L (-2.0-2.0); ABG HCO3 22.1 mmol/L (22.0-26.0); ABG PCO2 (T) 67.4 mmHg (32.0-45.0); ABG PO2 (T) 72.5 mmHg (75.0-100.0); ALLEN'S TEST POSITIVE; FCOHb 0.7 % (0.0-3.9); FO2Hb 91.4 % (94-97); PATIENT TEMPERATURE 36.1; PEEP 10 cm H2O; RESPIRATORY RATE 24 b/min; TIDAL VOLUME 300 mL; TOTAL HEMOGLOBIN 12.2 G/dl (12.0-16.0)
[2022-04-16] MEDS: metoprolol tartrate 1mg/ml inj IV SCH ×4 (04:00→13:43)
--- NOTE | 2022-04-16 04:04 | NUR ---
Call in to Dr. Hudson to report critical lab and abg values. no answer. message left to call back
[2022-04-16] MEDS: FENTANYL-0.9 % NACL/PF 100 ML IV PRN (04:15)
[2022-04-16] MEDS: propofol 1000mg/100ml bottle 100 ML IV SCH ×2 (04:16→13:44)
--- NOTE | 2022-04-16 04:16 | NUR ---
Call in to Dr. Hudson to report critical lab and abg orders. orders noted
[2022-04-16] MEDS ORDERED: CISatracurium besylate inj. 100 MG in normal saline 100ml IV soln 90 ML IV PRN (04:25)
[2022-04-16 05:05] LABS: PLATELET ESTIMATE DECREASED; TOTAL CELLS COUNTED 100
--- NOTE | 2022-04-16 05:30 | NUR ---
Spoke with Dr. Hudson regarding BIS 46 prior to starting nimbex. Reviewed protocol requiring BIS greater than 60 prior to starting nimbex. States, "She needs the nimbex. Start it." Asked if we should call HD nurses to request they come in early to start her session. Sts HD won't help this issue and to just start the nimbex. Nimbex started as ordered.
[2022-04-16] MEDS ORDERED: heparin 1,000unit/ml 10ml vial 10 ML IV ONE (06:50)
[2022-04-16] MEDS ORDERED: heparin 1,000 units/ml 10ml inj HE ONE ×2 (06:50)
--- NOTE | 2022-04-16 06:56 | NUR ---
Patient in room CICU 2011. I have received report from Genet ALVAREZ and had the opportunity to ask questions and assume patient care. Pt semi fowlers in bed, HOB 30 degrees, BIS reading 37. Nimbex at bottom threshold of 0.5. fent: 50, Prop 10. temp at 36.8. labs continue with elevated electrolytes, peaked t waves. Per Genet Hudson consulted multiple times through the night and new orders carried out.
[2022-04-16] MEDS: pantoprazole 40MG/NS 100ML BAG 100 ML IV SCH (08:59)
[2022-04-16] MEDS: docusate sodium 100mg/10ml UD cup NG SCH (08:59)
[2022-04-16] MEDS: cefTAZidime inj. 1 GM in normal saline 100ml IV soln 100 ML IV SCH (08:59)
[2022-04-16] MEDS: amiodarone 200mg tablet NG SCH (09:01)
[2022-04-16] MEDS ORDERED: EPOETIN ALFA-EPBX 20,000 UNIT/ML 1 ML MDV SQ ONE (09:30)
[2022-04-16 09:44] LABS: ABG BASE EXCESS -7.7 mmol/L (-2.0-2.0); ABG HCO3 22.7 mmol/L (22.0-26.0); ABG OXYGEN SATURATION 91.3 % (94-97); ABG PCO2 (T) 69.1 mmHg (32.0-45.0); ABG PO2 (T) 73.8 mmHg (75.0-100.0); ALLEN'S TEST NEGATIVE; FCOHb 1.2 % (0.0-3.9); FMetHb 0.2 % (0.0-1.5); PATIENT TEMPERATURE 36.8; PEEP 10 cm H2O; RESPIRATORY RATE 28 b/min; TIDAL VOLUME 300 mL
--- NOTE | 2022-04-16 10:19 | NUR ---
Throughout the morning, after starting dialysis, levo titrated up in conjunction with 2 fluid boluses from HD nurse to maintain blood pressure. Dr. Hudson notified. new orders for abg's and to consult Dr. Rodrigez and consider CRRT. Angelika HD RN spoke with . Per Angelika, HD will continue to filter but not remove any fluid due to pt's labile bp and pt will be evaluated for continues HD later on this afternoon. Pt continues in nimbex at lowest dose, non responsive RASS, with fentanyl and propofol utilized to ensure adequate sedation/analgesia while paralyzed. BIS continues below desired 50-60 range, continuously less than 30. Dr. Hudson notified. no new orders.
--- NOTE | 2022-04-16 10:33 | NUR ---
F/u 04/16: Pt reintubated 04/15 w/ feeding tube still in place tolerating Nepro at 35ml/hr. 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 LBM 04/12 receiving routine colace, miralax, erythromycin, and lactulose started yesterday per EMR. Pt Phos 10.9mg/dl this AM currently receiving HD; RD d/w RN regarding phos-binder if MD agreeable since on HD. Will continue to follow. Recommendations: 1) Continuous TF per MD; given Propofol at 6.21mL/hr (146 kcal/day) Vital HP at 60 mL/hr goal; to provide 1440 mL volume/day, 1440 kcal, 126 g protein, and 1204 mL water. Initiate at 60ml/hr goal rate since pt tolerating prior 35ml/hr TF rate per EMR. 2) Additional water flush per physician; on HD 3) Consider routine Phos-binder given HD 4) PALB q Sunday/; Daily scaled wts 5) Routine and PRN bowel regimen given constipation 6) upon extubation; continue supplemental EN until consistent, adequate PO assured Addendum: 04/16/22 at [address] Amended: Links added.
--- NOTE | 2022-04-16 12:00 | NUR ---
pt with emesis of TF colored liquid from nose and mouth. ABD increased distension. BS hypoactive. no BM from lactulose yet. new Dr. Hudson notified. new order for flagyl IV Q8, and enema.
[2022-04-16] MEDS ORDERED: metroNIDAZOLE-Flagyl 500mg/NS 100 ML IV SCH (12:05)
[2022-04-16] MEDS ORDERED: mineral oil/petrolatum ophthal oint EACHEYE SCH (14:00)
[2022-04-16 14:32] LABS: ABG HCO3 16.5 mmol/L (22.0-26.0); ABG OXYGEN SATURATION 89.1 % (94-97); ABG PCO2 (T) 60.3 mmHg (32.0-45.0); ABG PO2 (T) 74.7 mmHg (75.0-100.0); ALLEN'S TEST POSITIVE; FMetHb 0.3 % (0.0-1.5); FO2Hb 87.9 % (94-97); PATIENT TEMPERATURE 37.5; PEEP 10 cm H2O; RESPIRATORY RATE 28 b/min; TIDAL VOLUME 300 mL; TOTAL HEMOGLOBIN 12.8 G/dl (12.0-16.0)
[2022-04-16] MEDS ORDERED: sodium bicarbonate (8.4%) inj. 1 MEQ/ML ML ONE (14:39)
[2022-04-16] MEDS ORDERED: vasopressin inj. 40 UNIT in dextrose 5%-water 50ml 38 ML IV SCH ×2 (14:40→15:35)
[2022-04-16] MEDS ORDERED: SODIUM BICARB 150mEq/D5W 1L 1,000 ML IV ONE (14:40)
[2022-04-16] MEDS ORDERED: sodium bicarbonate (8.4%) inj. 1 MEQ/ML ML IV ONE ×2 (14:40→15:25)
[2022-04-16] MEDS ORDERED: vasopressin inj. 40 UNIT in normal saline 50ml IV soln 38 ML IV SCH (14:49)
--- NOTE | 2022-04-16 14:51 | NUR ---
O2 requirements increasing, SPO2 dropping, BP dropping, ST widening. Called Dr. Hudson. new order for two ams of bicarb, start vasopressin, bicarb drip at 150ml/hr, labs. blood sugar low, dextrose IV given per order. blood sugar improved to 180's. after two amps improvement noted to VS. ETCO2 38. spo2 high 90's. labs sent
[2022-04-16] MEDS ORDERED: NORepinephrine inj. 32 MG in normal saline 250ml IV soln 218 ML IV SCH (15:00)
[2022-04-16 15:08] LABS: ALANINE AMINOTRANSFERASE 745 U/L (12-78); ALBUMIN 1.7 G/DL (3.4-5.0); ALBUMIN/GLOBULIN RATIO 0.6 (1.1-1.5); ALKALINE PHOSPHATASE 121 IU/L (46-116); ANION GAP 13 (8-16); ASPARTATE AMINO TRANSFERASE 684 U/L (10-37); BILIRUBIN,TOTAL 1.3 MG/DL (0.1-1.0); BLOOD UREA NITROGEN 35 MG/DL (7-18); BUN/CREATININE RATIO 14.8 (6.6-38.0); CALCIUM 7.4 MG/DL (8.5-10.1); CHLORIDE 97 MMOL/L (99-107); CREATININE 2.36 MG/DL (0.40-0.90); GLUCOSE 208 MG/DL (70-104); SODIUM 138 MMOL/L (135-145); TOTAL CARBON DIOXIDE 28.1 MMOL/L (24-32); TOTAL PROTEIN 4.4 G/DL (6.4-8.2); eGFR 21 ML/MIN
[2022-04-16 15:16] LABS: POTASSIUM 6.4 MMOL/L (3.5-5.1)
[2022-04-16] MEDS ORDERED: Dextrose 10%-water IV solution 1,000 ML IV SCH (15:25)
[2022-04-16] MEDS ORDERED: dextrose 50%-water 50ml dispensing syringe IV ONE (15:25)
[2022-04-16] MEDS ORDERED: insulin regular, human U-100 3ml vial - multi-dose IV ONE (15:25)
--- NOTE | 2022-04-16 15:30 | NUR ---
Called Dr. Hudson regarding K: 6.4. new order for 10U regular insulin with Amp of Dextrose 50, additional amp of bicarb push IV, Start Vasopressin to maintain MAP of 70 or above. check fingersticks Q1hour, give amp of dextrose if <70. check lactic acid.
--- NOTE | 2022-04-16 16:55 | NUR ---
called Dr. Hudson and informed him of the lactic acid values and that a kub had been ordered for abdominal distention and vomiting. md ordered bicarb gtt to runn at 200cc/hr. updated on changes and plan of care
[2022-04-16] MEDS ORDERED: sodium phosphate inj. 30 MMOL in normal saline 250ml IV soln 250 ML IV PRN ×2 (17:20→17:35)
[2022-04-16] MEDS ORDERED: magnesium 4gm in 100ml NS 100 ML IV PRN ×2 (17:20→17:35)
[2022-04-16] MEDS ORDERED: potassium Cl 40MEQ/270ML bag 270 ML IV PRN ×2 (17:20→17:35)
[2022-04-16] MEDS ORDERED: bicarb dialysis sol 2K+/3 Ca2+ 5,000 ML HE SCH ×2 (17:20→17:35)
[2022-04-16] MEDS ORDERED: calcium chloride inj. 1,000 MG in normal saline 100ml IV soln 100 ML IV PRN ×2 (17:20→17:35)
[2022-04-16] MEDS ORDERED: morphine 10mg/ml inj. IV PRN (18:25)
--- NOTE | 2022-04-16 18:27 | NUR ---
Pt taken to non contrast CT per Dr. Hudson order, after ABD pressure came back at 35. upon return, family in [place] and verbalized desire to make pt comfort care. Dr. Hudson placed on speak phone on nurses desk phone and Pt's and daughter discussed their wishes with Dr. Hudson to place the pt on comfort care. Dr. Hudson explained what that entailed. Family verbalized understanding. Per Dr. Hudson, he will be placing pt on comfort measures. Pt family at bedside, grieving appropriately. all questions answered.
--- NOTE | 2022-04-16 18:29 | NUR ---
Problems reprioritized. Patient report given, questions answered & plan of care reviewed with Genet ALVAREZ.
--- NOTE | 2022-04-16 18:55 | NUR ---
Spoke with family at bedside. Explained proceedure of transitioning to comfort care. Explained pathophys. process of expiration. Opportunities for questions provided, all questions answered. Family verbalizes understanding of information given. RT at bedside. MS given as ordered. all drips DC'd. Patient extubated at this time and 2LNC placed for comfort.
--- NOTE | 2022-04-16 19:37 | NUR ---
RN IS TO DOCUMENT YES TO ALL APPLICABLE AREAS Pronouncement of : 1. Time Physician Notified: 2014 2. Date of :04/16/22 3. Time of : 1936 4. DNR/Withdraw life support documented:Yes 5. Monitor strip has been placed on chart:Yes 6. Assessment process is of one-minute duration and includes following criteria: a) Patient is unresponsive to all stimuli: Yes b) Pupils fixed and non-reactive:Yes c) Auscultation of precordium reveals absence of heart tones: Yes d) Auscultation of lungs reveals absence of breath sounds: Yes e) Absence of blood pressure / all vital signs: Yes f) QRS complexes are not present on monitor / EKG strip: Yes g) Pacer spikes without capture:NA 4. Comments:Family at bedside
--- NOTE | 2022-04-16 20:17 | NUR ---
Pt at 1937. Family at bedside. Release of remains information obtained. [facility] notified, notified. [facility] notified. Post care completed
== END 2022-04-16 21:41 | DRG 720 ==
LOC: ER 17:17 → CICU 2S 20:00
PROVIDERS: ADMIT Internal Medicine Critical Care Medicine; ATTEND Internal Medicine Critical Care Medicine
PROC: 5A1955Z Respiratory Ventilation, Greater than 96 Consecutive Hours (ICD-10-PCS; 2022-03-31)
PROC: 0BH17EZ Insertion of Endotracheal Airway into Trachea, Via Natural or Artificial Opening (ICD-10-PCS; 2022-03-31)
PROC: 0DJ08ZZ Inspection of Upper Intestinal Tract, Via Natural or Artificial Opening Endoscopic (ICD-10-PCS; 2022-04-01)
PROC: 30233N1 Transfusion of Nonautologous Red Blood Cells into Peripheral Vein, Percutaneous Approach (ICD-10-PCS; 2022-04-05)
PROC: 5A1D70Z Performance of Urinary Filtration, Intermittent, Less than 6 Hours Per Day (ICD-10-PCS; 2022-04-09)
PROC: 0JH63XZ Insertion of Tunneled Vascular Access Device into Chest Subcutaneous Tissue and Fascia, Percutaneous Approach (ICD-10-PCS; 2022-04-10)
PROC: 02HV33Z Insertion of Infusion Device into Superior Vena Cava, Percutaneous Approach (ICD-10-PCS; 2022-04-10)
PROC: B518YZA Fluoroscopy of Superior Vena Cava using Other Contrast, Guidance (ICD-10-PCS; 2022-04-10)
PROC: 5A1D70Z Performance of Urinary Filtration, Intermittent, Less than 6 Hours Per Day (ICD-10-PCS; 2022-04-10)
PROC: 5A1D70Z Performance of Urinary Filtration, Intermittent, Less than 6 Hours Per Day (ICD-10-PCS; 2022-04-11)
PROC: 5A0945A Assistance with Respiratory Ventilation, 24-96 Consecutive Hours, High Flow/Velocity Cannula (ICD-10-PCS; 2022-04-12)
PROC: 5A1D70Z Performance of Urinary Filtration, Intermittent, Less than 6 Hours Per Day (ICD-10-PCS; 2022-04-12)
PROC: 5A1D70Z Performance of Urinary Filtration, Intermittent, Less than 6 Hours Per Day (ICD-10-PCS; 2022-04-13)
PROC: 5A1D70Z Performance of Urinary Filtration, Intermittent, Less than 6 Hours Per Day (ICD-10-PCS; 2022-04-14)
PROC: 02HV33Z Insertion of Infusion Device into Superior Vena Cava, Percutaneous Approach (ICD-10-PCS; principal; 2022-04-15)
PROC: B548ZZA Ultrasonography of Superior Vena Cava, Guidance (ICD-10-PCS; 2022-04-15)
PROC: 5A09357 Assistance with Respiratory Ventilation, Less than 24 Consecutive Hours, Continuous Positive Airway Pressure (ICD-10-PCS; 2022-04-15)
PROC: 5A09357 Assistance with Respiratory Ventilation, Less than 24 Consecutive Hours, Continuous Positive Airway Pressure (ICD-10-PCS; 2022-04-15)
DX: A41.9 Sepsis, unspecified organism (principal); N17.0 Acute kidney failure with tubular necrosis; J80 Acute respiratory distress syndrome; R65.21 Severe sepsis with septic shock; D69.6 Thrombocytopenia, unspecified; E87.29 Other acidosis; E83.51 Hypocalcemia; J18.9 Pneumonia, unspecified organism; D63.1 Anemia in chronic kidney disease; Z51.5 Encounter for palliative care; Z66 Do not resuscitate; E87.1 Hypo-osmolality and hyponatremia; N18.6 End stage renal disease; I13.2 Hypertensive heart and chronic kidney disease with heart failure and with stage 5 chronic kidney disease, or end stage renal disease; I27.29 Other secondary pulmonary hypertension; I50.9 Heart failure, unspecified; E11.22 Type 2 diabetes mellitus with diabetic chronic kidney disease; B96.89 Other specified bacterial agents as the cause of diseases classified elsewhere; E03.9 Hypothyroidism, unspecified; E78.5 Hyperlipidemia, unspecified; E87.5 Hyperkalemia; F17.210 Nicotine dependence, cigarettes, uncomplicated; F41.9 Anxiety disorder, unspecified; I27.81 Cor pulmonale (chronic); I86.4 Gastric varices; J44.0 Chronic obstructive pulmonary disease with (acute) lower respiratory infection; J44.1 Chronic obstructive pulmonary disease with (acute) exacerbation; E66.01 Morbid (severe) obesity due to excess calories; Z68.41 Body mass index [BMI] 40.0-44.9, adult; K92.2 Gastrointestinal hemorrhage, unspecified; K21.00 Gastro-esophageal reflux disease with esophagitis, without bleeding; Z20.822 Contact with and (suspected) exposure to COVID-19; J40 Bronchitis, not specified as acute or chronic; Z79.84 Long term (current) use of oral hypoglycemic drugs; Z88.2 Allergy status to sulfonamides; Z91.199 Patient's noncompliance with other medical treatment and regimen due to unspecified reason; Z99.2 Dependence on renal dialysis; Z99.81 Dependence on supplemental oxygen; Z79.82 Long term (current) use of aspirin; Z79.899 Other long term (current) drug therapy
CPT/HCPCS: 31500; 36415; 36430; 36558; 36600; 43235; 71045; 71046; 71250; 74018; 74176; 76700; 76937; 77001; 80048; 80053; 80069; 80076; 80162; 80202; 81001; 82570; 82728; 82803; 82948; 83036; 83540; 83550; 83605; 83735; 83880; 83935; 84100; 84134; 84145; 84156; 84300; 84443; 84478; 84484; 85007; 85008; 85018; 85025; 85027; 86705; 86706; 86885; 86900; 86901; 86920; 87070; 87077; 87081; 87186; 87207; 87340; 87502; 87503; 87635; 90935; 92508; 92616; 93005; 94002; 94003; 94640; 94660; 94760; 94799; 96374; 96375; 97110; 97161; 97530; 99291; A4333; A4615; A4624; A6154; A6196; A6213; A6250; A6253; A6258; A6402; A6449; A7015; A9270; C1750; C1751; C1752; C1769; C1894; C9113; C9803; E1594; G0378; J0282; J0713; J1160; J1170; J1644; J1815; J2250; J2274; J2543; J2704; J2920; J2930; J3010; J3370; J3480; J3490; J7030; J7040; J7050; P9016; Q4081